=== PATIENT | male | born 1930 | race American Indian/Alaskan Native ===

== ENCOUNTER 2016-06-08 17:00 | Inpatient (IN) | payer MEDICARE, OTHER ==
[2016-05-29 00:20] VITALS: BMI 23.8
[2016-06-08] MEDS: Vitamins A & D Oint UD Foilpak TOP SCH (19:22)
[2016-06-08] MEDS: Nystatin 100,000 Units/ml Oral Susp 5 ml UD PO SCH ×2 (19:22→23:43)
[2016-06-08] MEDS: Albuterol-Ipratrop 3 mg / 0.5 (3 ml) UD INH SCH (20:13)
--- NOTE | 2016-06-08 23:43 | CP.PCM.HP ---
History of Present Illness - History of Present Illness History of Present Illness: 85 year old male with PMH significant for COPD, HTN, admitted from [facility] with TPN in left upper arm single lumen PICC line at 70ml/hr. Telemetry applied, RSR with HR of 78. No complaints at this time. nurse spoke to me on phone and medications were ordered via telephone. Past Patient History - Infectious Disease Hx of Infectious Diseases: None - Past Medical History & Family History Past Medical History?: Yes - Past Social History Smoking Status: Never Smoked - CARDIAC Hx Cardiac Disorders: Yes Hx Congestive Heart Failure: Yes Hx Hypercholesterolemia: Yes Hx Hypertension: Yes - PULMONARY Hx Respiratory Disorders: Yes - NEUROLOGICAL Hx Dementia: Yes - HEENT Hx HEENT Problems: No - RENAL Hx Chronic Kidney Disease: No - ENDOCRINE/METABOLIC Hx Endocrine Disorders: Yes Hx Diabetes Mellitus Type 2: Yes - HEMATOLOGICAL/ONCOLOGICAL Hx Human Immunodeficiency Virus (HIV): No Other/Comment: DVT - INTEGUMENTARY Hx Dermatological Problems: No - MUSCULOSKELETAL/RHEUMATOLOGICAL Hx Musculoskeletal Disorders: Yes (Right AKA) Hx Falls: Yes - GASTROINTESTINAL Hx Gastrointestinal Disorders: No - GENITOURINARY/GYNECOLOGICAL Hx Genitourinary Disorders: No - PSYCHIATRIC Hx Psychophysiologic Disorder: No Hx Substance Use: No - SURGICAL HISTORY Hx Surgeries: Yes Hx Amputation: Yes (RIGHT ABOVE THE KNEE) - ANESTHESIA Hx Anesthesia: Yes Hx Anesthesia Reactions: No Hx Malignant Hyperthermia: No Has any member of the family had a problem w/ anesthesia?: No Meds Allergies/Adverse Reactions: Allergies Allergy/AdvReac Type Severity Reaction Status Date / Time moxifloxacin HCl Allergy REDNESS Verified 05/28/16 18:17 [From Avelox] Penicillins Allergy RASH Verified 05/28/16 18:17 vancomycin AdvReac RASH Verified 05/28/16 18:17 Results - Vital Signs Recent Vital Signs: Last Vital Signs Temp 97.8 F 06/08/16 17:30 Pulse 77 06/08/16 20:17 Resp 20 06/08/16 17:30 BP 121/67 06/08/16 17:30 Pulse Ox 100 06/08/16 17:30 - Labs Labs: Laboratory Results - last 24 hr 06/08/16 21:35 POC Glucose (mg/dL) 147 H Assessment & Plan - Assessment and Plan (Free Text) Plan: detailed orders written continue TPN at 70ml/hr.
[2016-06-09] MEDS: Albuterol-Ipratrop 3 mg / 0.5 (3 ml) UD INH SCH ×4 (02:12→20:05)
[2016-06-09] MEDS: Nystatin 100,000 Units/ml Oral Susp 5 ml UD PO SCH ×4 (09:26→21:36)
[2016-06-09] MEDS: Enoxaparin 40 mg Syringe SC SCH (09:27)
[2016-06-09] MEDS: Vitamins A & D Oint UD Foilpak TOP SCH ×2 (09:27→21:36)
[2016-06-09 10:14] LABS: HEMATOCRIT 30.6 % (35.0-51.0); MEAN CELL VOLUME 91.4 fL (80.0-94.0); MEAN CORPUSCULAR HEMOGLOBIN 30.4 pg (27.0-31.0); MEAN CORPUSCULAR HGB CONC 33.3 g/dL (33.0-37.0); MEAN PLATELET VOLUME 8.7 fL (7.2-11.7); RED CELL DISTRIBUTION WIDTH 14.8 % (11.5-14.5); WHITE BLOOD COUNT 7.6 K/uL (4.8-10.8)
[2016-06-09 10:15] LABS: CHLORIDE 105 mmol/L (98-107); POTASSIUM 3.2 mmol/L (3.6-5.2); SODIUM 147 mmol/L (132-148)
[2016-06-09 10:16] LABS: INR 1.8
[2016-06-09 10:17] LABS: GFR AFRICAN-AMERICAN > 60
[2016-06-09 10:18] LABS: ALB/GLOB RATIO 0.7 (1.0-2.1); ALKALINE PHOSPHATASE 51 U/L (38-126); ALT/SGPT 38 U/L (21-72); AST/SGOT 19 U/L (17-59); BILIRUBIN,TOTAL 0.6 mg/dL (0.2-1.3); BLOOD UREA NITROGEN 16 mg/dL (9-20); CALCIUM 7.8 mg/dl (8.6-10.4); CARBON DIOXIDE 30 mmol/L (22-30); GLUCOSE,RANDOM 117 mg/dL (75-110); TOTAL PROTEIN 5.7 g/dL (6.3-8.3)
[2016-06-09] MEDS ORDERED: Potassium Chloride 20 mEq ER Tab PO ONE (13:15)
--- NOTE | 2016-06-09 17:13 | CARD ---
APPROVED REPORT EKG Measurement Heart [id number] <Conclusion> Sinus rhythm with premature supraventricular complexes Left ventricular hypertrophy with repolarization abnormality ST & T wave abnormality, consider anterior ischemia Abnormal ECG
--- NOTE | 2016-06-09 17:17 | CP.PCM.CON ---
History of Present Illness - History of Present Illness History of Present Illness: I was asked to see patient by Dr. Pimentel. Patient is an 85 year old male with PMH PVD s.p R BKA, HTN CAD, DM who presents form [facility]. The patient was being managed at [facility] for a stump infection. He was brought form the rehab floot with dyspnea and ruled in for myocardial infarction. The patient was treated with abx, and developed desquamation of the skin. He was transferred to [facility] for furhter management. I have spoken to the patient's daughter Mariaa who is the health care proxy. Review of Systems - Review of Systems Systems not reviewed;Unavailable: Altered Mental Status Past Patient History - Infectious Disease Hx of Infectious Diseases: None - Past Medical History & Family History Past Medical History?: Yes - Past Social History Smoking Status: Never Smoked - CARDIAC Hx Hypertension: Yes - PULMONARY Hx Chronic Obstructive Pulmonary Disease (COPD): Yes - NEUROLOGICAL Hx Dementia: Yes - HEENT Hx HEENT Problems: No - RENAL Hx Chronic Kidney Disease: No - ENDOCRINE/METABOLIC Hx Endocrine Disorders: Yes Hx Diabetes Mellitus Type 2: Yes - HEMATOLOGICAL/ONCOLOGICAL Hx Human Immunodeficiency Virus (HIV): No Other/Comment: DVT - INTEGUMENTARY Hx Dermatological Problems: No - MUSCULOSKELETAL/RHEUMATOLOGICAL Hx Musculoskeletal Disorders: Yes (Right AKA) Hx Falls: Yes - GASTROINTESTINAL Hx Gastrointestinal Disorders: No - GENITOURINARY/GYNECOLOGICAL Hx Genitourinary Disorders: No - PSYCHIATRIC Hx Psychophysiologic Disorder: No Hx Substance Use: No - SURGICAL HISTORY Hx Surgeries: Yes Hx Amputation: Yes (RIGHT ABOVE THE KNEE) - ANESTHESIA Hx Anesthesia: Yes Hx Anesthesia Reactions: No Hx Malignant Hyperthermia: No Has any member of the family had a problem w/ anesthesia?: No Meds Allergies/Adverse Reactions: Allergies Allergy/AdvReac Type Severity Reaction Status Date / Time moxifloxacin HCl Allergy REDNESS Verified 05/28/16 18:17 [From Avelox] Penicillins Allergy RASH Verified 05/28/16 18:17 vancomycin AdvReac RASH Verified 05/28/16 18:17 - Medications Medications: Current Medications Albuterol/Ipratropium (Duoneb 3 Mg/0.5 Mg (3 Ml) Ud) 3 ml INH RQ6 [facility] Last Admin: 06/09/16 13:22 Dose: 3 ml Aspirin (Ecotrin) 81 mg PO DAILY [facility] Last Admin: 06/09/16 09:26 Dose: 81 mg Carvedilol (Coreg) 3.125 mg PO Q12 [facility] Last Admin: 06/09/16 09:25 Dose: 3.125 mg Donepezil HCl (Aricept) 5 mg PO [facility] Last Admin: 06/08/16 22:29 Dose: 5 mg Enoxaparin Sodium (Lovenox) 40 mg SC DAILY [facility] Last Admin: 06/09/16 09:27 Dose: 40 mg Dextrose (Dextrose 10% In Water) 1,000 mls @ 50 mls/hr IV .Q20H [facility] Last Admin: 06/09/16 09:25 Dose: 50 mls/hr Heparin Sodium (Porcine) 1,000 units/ Multivitamins/Vitamin C 10 ml/ Amino Acids /Electrolytes/Dextrose 1,011 mls @ 70 mls/hr IV .[id number] ONE Stop: 06/10/16 08:26 Heparin Sodium (Porcine) 1,000 units/ Amino Acids/Electrolytes/Dextrose 1,001 mls @ 70 mls/hr IV .[id number] [facility] Stop: 06/10/16 17:59 Losartan Potassium (Cozaar) 25 mg PO DAILY [facility] Last Admin: 06/09/16 09:25 Dose: 25 mg Mirtazapine (Remeron) 15 mg PO [facility] Last Admin: 06/08/16 22:28 Dose: 15 mg Nystatin (Nystatin Oral Susp) 5 ml PO QID [facility] Last Admin: 06/09/16 13:26 Dose: 5 ml Ondansetron HCl (Zofran Inj) 4 mg IVP Q6 PRN PRN Reason: Nausea/Vomiting Rosuvastatin Calcium (Crestor) 10 mg PO [facility] Last Admin: 06/08/16 22:00 Dose: 10 mg Vitamin A (Vitamin A & D Oint Ud Foilpak) 1 ea TOP BID [facility] Last Admin: 06/09/16 09:27 Dose: 1 ea Physical Exam - Constitutional Appears: Chronically Ill - Head Exam Head Exam: NORMAL INSPECTION - Eye Exam Eye Exam: Normal appearance - ENT Exam ENT Exam: Mucous Membranes Moist - Neck Exam Neck exam: Positive for: Full Rom - Respiratory Exam Respiratory Exam: NORMAL BREATHING PATTERN - Cardiovascular Exam Cardiovascular Exam: REGULAR RHYTHM - GI/Abdominal Exam GI & Abdominal Exam: Normal Bowel Sounds - Rectal Exam Rectal Exam: Deferred - Extremities Exam Extremities exam: Negative for: pedal edema - Back Exam Back exam: NORMAL INSPECTION - Neurological Exam Neurological exam: Alert, Oriented x3 - Psychiatric Exam Psychiatric exam: Normal Affect - Skin Skin Exam: Normal Color Results - Vital Signs Recent Vital Signs: Last Vital Signs Temp 98 F 06/09/16 16:00 Pulse 80 06/09/16 16:06 Resp 20 06/09/16 16:00 BP 131/73 06/09/16 16:00 Pulse Ox 97 06/09/16 16:00 - Labs Result Diagrams: 06/09/16 10:02 06/09/16 10:02 Labs: Laboratory Results - last 24 hr 06/08/16 06/09/16 06/09/16 21:35 04:54 06:27 WBC RBC Hgb Hct MCV MCH MCHC RDW Plt Count MPV PT INR APTT Sodium Potassium Chloride Carbon Dioxide Anion Gap BUN Creatinine Est GFR ( Amer) Est GFR (Non-Af Amer) POC Glucose (mg/dL) 147 H 194 H 77 Random Glucose Calcium Total Bilirubin AST ALT Alkaline Phosphatase Total Creatine Kinase CK-MB (Mass) Troponin I, Quant Total Protein Albumin Globulin Albumin/Globulin Ratio 06/09/16 06/09/16 06/09/16 10:02 11:36 16:14 WBC 7.6 RBC 3.35 L Hgb 10.2 L D Hct 30.6 L MCV 91.4 MCH 30.4 MCHC 33.3 RDW 14.8 H Plt Count 198 MPV 8.7 PT 19.8 H INR 1.8 APTT 37 H Sodium 147 Potassium 3.2 L Chloride 105 Carbon Dioxide 30 Anion Gap 15 BUN 16 Creatinine 1.2 Est GFR ( Amer) > 60 Est GFR (Non-Af Amer) 58 POC Glucose (mg/dL) 156 H 102 Random Glucose 117 H Calcium 7.8 L Total Bilirubin 0.6 AST 19 ALT 38 Alkaline Phosphatase 51 Total Creatine Kinase 33 L CK-MB (Mass) 2.06 Troponin I, Quant 0.2350 H* Total Protein 5.7 L Albumin 2.3 L D Globulin 3.4 Albumin/Globulin Ratio 0.7 L - EKG Data EKG Interpreted by: Myself EKG shows normal: Sinus rhythm Assessment & Plan - Assessment and Plan (Free Text) Assessment: CAD patient had NSTEMI at [facility]. There is a high incidence of CAD with PAD. will schedule cardiac cath. consent obtained from the duaghter. all risks and benefits were discussed.
[2016-06-09] MEDS ORDERED: TPN#1 IV ONE (18:00)
--- NOTE | 2016-06-09 23:43 | CP.PCM.PN ---
Subjective - Date & Time of Evaluation Date of Evaluation: 06/09/16 - Subjective Subjective: Pt seen and evaluated, is afebrile, improving, more alert, atempting to gibe him diet, meantime he is on TPN, troponins are positive for Cardiac cath,pt is confused not able to give more information, pt son is on bedside Objective - Vital Signs/Intake and Output Vital Signs (last 24 hours): Temp Pulse Resp BP Pulse Ox 98 F 80 20 136/68 97 06/09/16 16:00 06/09/16 16:06 06/09/16 16:00 06/09/16 21:57 06/09/16 16:00 - Medications Medications: Current Medications Albuterol/Ipratropium (Duoneb 3 Mg/0.5 Mg (3 Ml) Ud) 3 ml INH RQ6 [facility] Last Admin: 06/09/16 20:05 Dose: 3 ml Aspirin (Ecotrin) 81 mg PO DAILY [facility] Last Admin: 06/09/16 09:26 Dose: 81 mg Carvedilol (Coreg) 3.125 mg PO Q12 [facility] Last Admin: 06/09/16 09:25 Dose: 3.125 mg Donepezil HCl (Aricept) 5 mg PO HS [facility] Last Admin: 06/09/16 21:35 Dose: 5 mg Enoxaparin Sodium (Lovenox) 40 mg SC DAILY [facility] Last Admin: 06/09/16 09:27 Dose: 40 mg Dextrose (Dextrose 10% In Water) 1,000 mls @ 50 mls/hr IV .Q20H [facility] Last Admin: 06/09/16 09:25 Dose: 50 mls/hr Heparin Sodium (Porcine) 1,000 units/ Multivitamins/Vitamin C 10 ml/ Amino Acids /Electrolytes/Dextrose 1,011 mls @ 70 mls/hr IV .[id number] ONE Stop: 06/10/16 08:26 Last Admin: 06/09/16 17:56 Dose: 70 mls/hr Heparin Sodium (Porcine) 1,000 units/ Amino Acids/Electrolytes/Dextrose 1,001 mls @ 70 mls/hr IV .[id number] [facility] Stop: 06/10/16 17:59 Losartan Potassium (Cozaar) 25 mg PO DAILY [facility] Last Admin: 06/09/16 09:25 Dose: 25 mg Mirtazapine (Remeron) 15 mg PO HS [facility] Last Admin: 06/08/16 22:28 Dose: 15 mg Nystatin (Nystatin Oral Susp) 5 ml PO QID [facility] Last Admin: 06/09/16 21:36 Dose: 5 ml Ondansetron HCl (Zofran Inj) 4 mg IVP Q6 PRN PRN Reason: Nausea/Vomiting Rosuvastatin Calcium (Crestor) 10 mg PO HS [facility] Last Admin: 06/09/16 21:35 Dose: 10 mg Vitamin A (Vitamin A & D Oint Ud Foilpak) 1 ea TOP BID [facility] Last Admin: 06/09/16 21:36 Dose: 1 ea - Labs Labs: 06/09/16 10:02 06/09/16 10:02 PT 19.8 SECONDS (9.7-12.2) H 06/09/16 10:02 INR 1.8 06/09/16 10:02 APTT 37 SECONDS (21-34) H 06/09/16 10:02 - Constitutional Appears: No Acute Distress, Confused, Chronically Ill - Head Exam Head Exam: ATRAUMATIC, NORMAL INSPECTION, NORMOCEPHALIC - ENT Exam ENT Exam: Mucous Membranes Moist, Normal Exam - Respiratory Exam Respiratory Exam: Decreased Breath Sounds, Rhonchi - Cardiovascular Exam Cardiovascular Exam: REGULAR RHYTHM, +S1, +S2. absent: Murmur - Skin Skin Exam: Dry Additional comments: ecthyosis genrally Assessment and Plan - Assessment and Plan (Free Text) Assessment: ACUTE OR HTN Hyperlipidemia Inability to thrive Plan: cardiac cath tommorow attempt feeding on TPN Physical therapy Rehab
[2016-06-10] MEDS: Albuterol-Ipratrop 3 mg / 0.5 (3 ml) UD INH SCH ×4 (01:30→19:56)
[2016-06-10 07:38] LABS: BASO % 0.5 % (0.0-2.0); EOS # 0.2 K/uL (0.0-0.7); EOS % 3.7 % (0.0-4.0); HEMATOCRIT 27.3 % (35.0-51.0); LYMPH # 1.1 K/uL (1.0-4.3); LYMPH % 17.3 % (20.0-40.0); MEAN CELL VOLUME 91.4 fL (80.0-94.0); MEAN CORPUSCULAR HEMOGLOBIN 30.9 pg (27.0-31.0); MEAN CORPUSCULAR HGB CONC 33.8 g/dL (33.0-37.0); MEAN PLATELET VOLUME 9.1 fL (7.2-11.7); MONO # 0.7 K/uL (0.0-0.8); MONO % 11.1 % (0.0-10.0); NRBC % 0.1 % (0.0-2.0); WHITE BLOOD COUNT 6.4 K/uL (4.8-10.8)
[2016-06-10 07:56] LABS: CHLORIDE 103 mmol/L (98-107); POTASSIUM 3.4 mmol/L (3.6-5.2); SODIUM 143 mmol/L (132-148)
[2016-06-10 07:58] LABS: BILIRUBIN,TOTAL 0.4 mg/dL (0.2-1.3); GFR AFRICAN-AMERICAN > 60
[2016-06-10 07:59] LABS: ALB/GLOB RATIO 0.7 (1.0-2.1); ALKALINE PHOSPHATASE 44 U/L (38-126); ALT/SGPT 26 U/L (21-72); AST/SGOT 24 U/L (17-59); BLOOD UREA NITROGEN 18 mg/dL (9-20); CALCIUM 7.1 mg/dl (8.6-10.4); CARBON DIOXIDE 27 mmol/L (22-30); GLUCOSE,RANDOM 130 mg/dL (75-110); TOTAL PROTEIN 5.2 g/dL (6.3-8.3)
[2016-06-10] MEDS ORDERED: Potassium Chloride 20 mEq 100 ML IVPB ONE (08:06)
[2016-06-10] MEDS ORDERED: TPN#2 IV SCH (08:27)
[2016-06-10] MEDS: Nystatin 100,000 Units/ml Oral Susp 5 ml UD PO SCH ×4 (09:42→22:15)
[2016-06-10] MEDS ORDERED: Iodixanol 320 mg/ml 150 ml Bottle IV ONE (11:57)
[2016-06-10] MEDS ORDERED: Midazolam 2 MG/2 ML VIAL ONE (11:58)
[2016-06-10 12:00] LABS: INR 1.5
--- NOTE | 2016-06-10 12:45 | CP.PCM.PN ---
Subjective - Date & Time of Evaluation Date of Evaluation: 06/10/16 Time of Evaluation: 12:30 - Subjective Subjective: cardiac cath performed. LAD ostium 90% OM1 90% mid vessel LVEF 45%. Due to multiple comorbidities ( patient is currently not eating, and receiving TPN). patient is at high risk for PCI given ostial LAD, recommend agressive medical therapy. Objective - Vital Signs/Intake and Output Vital Signs (last 24 hours): Temp Pulse Resp BP Pulse Ox 98.2 F 79 20 120/63 100 06/10/16 07:07 06/10/16 08:48 06/10/16 07:07 06/10/16 07:07 06/10/16 07:07 - Medications Medications: Current Medications Albuterol/Ipratropium (Duoneb 3 Mg/0.5 Mg (3 Ml) Ud) 3 ml INH RQ6 [facility] Last Admin: 06/10/16 07:29 Dose: 3 ml Aspirin (Ecotrin) 81 mg PO DAILY [facility] Last Admin: 06/09/16 09:26 Dose: 81 mg Carvedilol (Coreg) 3.125 mg PO Q12 [facility] Last Admin: 06/09/16 09:25 Dose: 3.125 mg Donepezil HCl (Aricept) 5 mg PO HS [facility] Last Admin: 06/09/16 21:35 Dose: 5 mg Enoxaparin Sodium (Lovenox) 40 mg SC DAILY [facility] Last Admin: 06/09/16 09:27 Dose: 40 mg Dextrose (Dextrose 10% In Water) 1,000 mls @ 50 mls/hr IV .Q20H [facility] Last Admin: 06/09/16 09:25 Dose: 50 mls/hr Heparin Sodium (Porcine) 1,000 units/ Amino Acids/Electrolytes/Dextrose 1,001 mls @ 70 mls/hr IV .[id number] [facility] Stop: 06/10/16 17:59 Last Admin: 06/10/16 10:27 Dose: 70 mls/hr Losartan Potassium (Cozaar) 25 mg PO DAILY [facility] Last Admin: 06/09/16 09:25 Dose: 25 mg Mirtazapine (Remeron) 15 mg PO HS [facility] Last Admin: 06/08/16 22:28 Dose: 15 mg Nystatin (Nystatin Oral Susp) 5 ml PO QID [facility] Last Admin: 06/10/16 09:42 Dose: Not Given Ondansetron HCl (Zofran Inj) 4 mg IVP Q6 PRN PRN Reason: Nausea/Vomiting Rosuvastatin Calcium (Crestor) 10 mg PO HS [facility] Last Admin: 06/09/16 21:35 Dose: 10 mg Vitamin A (Vitamin A & D Oint Ud Foilpak) 1 ea TOP BID [facility] Last Admin: 06/09/16 21:36 Dose: 1 ea - Labs Labs: 06/10/16 07:09 06/10/16 07:09 PT 16.4 SECONDS (9.7-12.2) H 06/10/16 11:44 INR 1.5 06/10/16 11:44 APTT 39 SECONDS (21-34) H 06/10/16 11:44
[2016-06-10] MEDS ORDERED: TPN #4 IV ONE (13:15)
[2016-06-10] MEDS: Enoxaparin 40 mg Syringe SC SCH (13:19)
[2016-06-10] MEDS: Vitamins A & D Oint UD Foilpak TOP SCH ×2 (13:19→17:38)
--- NOTE | 2016-06-10 13:19 | CARDCATH ---
PROCEDURE DATE: 06/10/2016 PERFORMING PHYSICIAN: Juan Carlos Todd MD. REFERRING PHYSICIAN: Faustino Pimentel MD. PROCEDURE PERFORMED: Left heart catheterization, coronary angiography, left ventriculography. INDICATIONS: Evaluation of patient with a non-ST segment elevation myocardial infarction. HISTORY: The patient is an 85-year-old male with past medical history of hypertension, hypercholeste rolemia and peripheral vascular disease with a right below knee amputation. He had just a stump of i nfection. The patient developed dyspnea and ruled in for myocardial infarction by cardiac troponin. The patient was brought to the cardiac label paster for further management. Informed consent was obtain ed from the patient's daughter who is the healthcare proxy. All risks and benefits were thoroughly e xplained. FINDINGS: LEFT MAIN: There is a 30% distal stenosis. LEFT ANTERIOR DESCENDING ARTERY: There is a 90% stenosis of the ostium of this vessel. The second d iagonal branch has 90% stenosis, this is a small caliber vessel. CIRCUMFLEX: The first obtuse marginal artery has a 90% stenosis. RIGHT CORONARY ARTERY: Arises from the right sinus of Valsalva. This is a right dominant circulatio n. There is a 30% stenosis of the mid vessel. LEFT VENTRICLE: Left ventricular systolic function is globally depressed. Left ventricular ejection fraction is 40%-45%. There is no mitral regurgitation, no aortic stenosis. CONCLUSIONS: Severe 2-vessel coronary artery disease. PLAN: The patient has multiple comorbidities. He currently on TPN and is not swallowing. He is not able to take antiplatelet therapy at this time. There is a consideration for placement of a G-tube for feeding and administration oral medications. The patient is at high risk for complications for c oronary bypass grafting and as well given the location of disease and the inability to ingest antipla telet therapy, he would be at high risk for percutaneous coronary intervention. I recommend aggressi ve medical therapy with the use of beta blockers as tolerated. I have discussed my findings with the patient's primary medical doctor, Dr. Faustino Pimentel, who agrees. Juan Carlos Todd MD cc: [phone] TT: 06/10/2016 13:18:35 jn
[2016-06-10] MEDS ORDERED: TPN #3 IV ONE (18:00)
[2016-06-11] MEDS: Albuterol-Ipratrop 3 mg / 0.5 (3 ml) UD INH SCH ×3 (01:10→13:20)
[2016-06-11 06:23] LABS: CHLORIDE 103 mmol/L (98-107)
[2016-06-11 06:24] LABS: POTASSIUM 3.8 mmol/L (3.6-5.2); SODIUM 139 mmol/L (132-148)
[2016-06-11 06:26] LABS: GFR AFRICAN-AMERICAN > 60
[2016-06-11 06:27] LABS: BLOOD UREA NITROGEN 20 mg/dL (9-20); CALCIUM 7.3 mg/dl (8.6-10.4); CARBON DIOXIDE 27 mmol/L (22-30); GLUCOSE,RANDOM 124 mg/dL (75-110)
[2016-06-11 08:20] VITALS: O2SAT 100
[2016-06-11] MEDS ORDERED: TPN #4 IV ONE (08:25)
[2016-06-11] MEDS: Vitamins A & D Oint UD Foilpak TOP SCH (10:25)
[2016-06-11] MEDS: Enoxaparin 40 mg Syringe SC SCH (10:25)
[2016-06-11] MEDS: Nystatin 100,000 Units/ml Oral Susp 5 ml UD PO SCH ×2 (10:25→13:38)
--- NOTE | 2016-06-11 12:36 | CP.PCM.PN ---
Subjective - Date & Time of Evaluation Date of Evaluation: 06/11/16 Time of Evaluation: 12:00 - Subjective Subjective: Pt seen and examined today , comfortable, denies any chest pain, sob , head ache , N/V, c/o pain to the left knee s/p Cardiac cath yesterday - LAD ostium 90% OM1 90% mid vessel LVEF 45%.- medical management recommended secondary to multiple co morbidities No overnight events recorded on monitor . Objective - Vital Signs/Intake and Output Vital Signs (last 24 hours): Temp Pulse Resp BP Pulse Ox 98.4 F 97 H 18 131/68 100 06/11/16 07:12 06/11/16 08:11 06/11/16 07:12 06/11/16 07:12 06/11/16 07:12 Intake and Output: 06/11/16 06/11/16 06:59 18:59 Output Total 200 Balance -200 - Medications Medications: Current Medications Albuterol/Ipratropium (Duoneb 3 Mg/0.5 Mg (3 Ml) Ud) 3 ml INH RQ6 [facility] Last Admin: 06/11/16 07:40 Dose: 3 ml Aspirin (Ecotrin) 81 mg PO DAILY [facility] Last Admin: 06/11/16 10:25 Dose: 81 mg Carvedilol (Coreg) 3.125 mg PO Q12 [facility] Last Admin: 06/11/16 10:24 Dose: 3.125 mg Donepezil HCl (Aricept) 5 mg PO HS [facility] Last Admin: 06/10/16 21:28 Dose: 5 mg Enoxaparin Sodium (Lovenox) 40 mg SC DAILY [facility] Last Admin: 06/11/16 10:25 Dose: 40 mg Heparin Sodium (Porcine) 1,000 units/ Amino Acids/Electrolytes/Dextrose 1, 000.2 mls @ 70 mls/hr IV .[id number] [facility] Stop: 06/11/16 22:42 Last Admin: 06/11/16 11:31 Dose: 70 mls/hr Multivitamins/Vitamin C 10 ml/Heparin Sodium (Porcine) 1, 000 units/ Amino Acids /Electrolytes/Dextrose 1,011 mls @ 70 mls/hr IV .[id number] [facility] Stop: 06/12/16 08:26 Heparin Sodium (Porcine) 1,000 units/ Amino Acids/Electrolytes/Dextrose 1,001 mls @ 70 mls/hr IV .[id number] [facility] Stop: 06/12/16 22:42 Losartan Potassium (Cozaar) 25 mg PO DAILY [facility] Last Admin: 06/11/16 10:25 Dose: 25 mg Mirtazapine (Remeron) 15 mg PO HS [facility] Last Admin: 06/10/16 21:28 Dose: 15 mg Nystatin (Nystatin Oral Susp) 5 ml PO QID [facility] Last Admin: 06/11/16 10:25 Dose: 5 ml Ondansetron HCl (Zofran Inj) 4 mg IVP Q6 PRN PRN Reason: Nausea/Vomiting Rosuvastatin Calcium (Crestor) 10 mg PO HS [facility] Last Admin: 06/10/16 21:38 Dose: 10 mg Vitamin A (Vitamin A & D Oint Ud Foilpak) 1 ea TOP BID [facility] Last Admin: 06/11/16 10:25 Dose: 1 ea - Labs Labs: 06/10/16 07:09 06/11/16 06:02 PT 16.4 SECONDS (9.7-12.2) H 06/10/16 11:44 INR 1.5 06/10/16 11:44 APTT 39 SECONDS (21-34) H 06/10/16 11:44 Assessment and Plan - Assessment and Plan (Free Text) Assessment: A/P 85 yr old male transferred from [place] for positive troponins and chest pain s/p cardiac cath yesterday by Dr. Pavon and recommends aggressive medical therapy secondary to multiple comorbiditeis vss- stable appetite still poor- pt on TPN for nutritional support Pt accepted at [facility] for rehab D/w Dr. Pimentel, stable for discharge to [facility] today an [place]. Loren will follow the patient at [facility] per CM Pt will continue to receive TPN at [facility] , RX for TPN given to pradeep johnson
--- NOTE | 2016-06-11 15:17 | PCM.HF ---
Heart Failure Core Measure - Heart Failure Ejection Fraction: 40 % or Greater ALBERT Inhibitor Prescribed: No Contraindication/Reason for not providing: on ALBERT Beta-Denita Prescribed: Carvedilol Angiotensin II Receptor Denita Prescribed: No AnticoagulationTherapy for Atrial Fibrillation/Atrialflutter: Yes Aldosterone Antagonist Prescribed: No Contraindication/Reason for not providing: ef>45 Hydralazine Nitrate Prescribed: No Contraindication/Reason for not providing: ef>45 Implantable Cardioverter Defibrillator Therapy: No Contraindication/Reason for not providing: recent cath Cardiac Resynchronization Therapy Prescribed: No Contraindication/Reason for not providing: recent cath - Follow up [facility] Follow Up Date (must be within 7 days from discharge): 06/13/16 Follow Up Time: 09:00
[2016-06-11 15:24] VITALS: BP 106/62; PULSE 102; RESP 20; TEMP 98.6
[2016-06-11] MEDS ORDERED: TPN #5 IV ONE (18:00)
--- NOTE | 2016-06-12 00:13 | CP.PCM.DIS ---
Provider - Provider Date of Admission: 06/08/16 17:00 Attending physician: Faustino Pimentel MD Hospital Course - Lab Results Lab Results: Most Recent Lab Values WBC 6.4 K/uL (4.8-10.8) 06/10/16 07:09 RBC 2.99 Mil/uL (4.40-5.90) L 06/10/16 07:09 Hgb 9.3 g/dL (12.0-18.0) L 06/10/16 07:09 Hct 27.3 % (35.0-51.0) L 06/10/16 07:09 MCV 91.4 fL (80.0-94.0) 06/10/16 07:09 MCH 30.9 pg (27.0-31.0) 06/10/16 07:09 MCHC 33.8 g/dL (33.0-37.0) 06/10/16 07:09 RDW 15.0 % (11.5-14.5) H 06/10/16 07:09 Plt Count 186 K/uL (130-400) 06/10/16 07:09 MPV 9.1 fL (7.2-11.7) 06/10/16 07:09 Neut % (Auto) 67.4 % (50.0-75.0) 06/10/16 07:09 Lymph % (Auto) 17.3 % (20.0-40.0) L 06/10/16 07:09 Lucas % (Auto) 11.1 % (0.0-10.0) H 06/10/16 07:09 Eos % (Auto) 3.7 % (0.0-4.0) 06/10/16 07:09 Baso % (Auto) 0.5 % (0.0-2.0) 06/10/16 07:09 Neut # 4.3 K/uL (1.8-7.0) 06/10/16 07:09 Lymph # 1.1 K/uL (1.0-4.3) 06/10/16 07:09 Lucas # 0.7 K/uL (0.0-0.8) 06/10/16 07:09 Eos # 0.2 K/uL (0.0-0.7) 06/10/16 07:09 Baso # 0.0 K/uL (0.0-0.2) 06/10/16 07:09 PT 16.4 SECONDS (9.7-12.2) H 06/10/16 11:44 INR 1.5 06/10/16 11:44 APTT 39 SECONDS (21-34) H 06/10/16 11:44 Sodium 139 mmol/L (132-148) 06/11/16 06:02 Potassium 3.8 mmol/L (3.6-5.2) 06/11/16 06:02 Chloride 103 mmol/L (98-107) 06/11/16 06:02 Carbon Dioxide 27 mmol/L (22-30) 06/11/16 06:02 Anion Gap 14 (10-20) 06/11/16 06:02 BUN 20 mg/dL (9-20) 06/11/16 06:02 Creatinine 1.2 MG/DL (0.8-1.5) 06/11/16 06:02 Est GFR ( Amer) > 60 06/11/16 06:02 Est GFR (Non-Af Amer) 58 06/11/16 06:02 POC Glucose (mg/dL) 107 mg/dL (65-110) 06/11/16 16:13 Random Glucose 124 mg/dL (75-110) H 06/11/16 06:02 Calcium 7.3 mg/dl (8.6-10.4) L 06/11/16 06:02 Total Bilirubin 0.4 mg/dL (0.2-1.3) 06/10/16 07:09 AST 24 U/L (17-59) 06/10/16 07:09 ALT 26 U/L (21-72) 06/10/16 07:09 Alkaline Phosphatase 44 U/L (38-126) 06/10/16 07:09 Total Creatine Kinase 33 U/L (55-170) L 06/09/16 10:02 CK-MB (Mass) 2.06 ng/mL (0.0-3.38) 06/09/16 10:02 Troponin I, Quant 0.2350 ng/mL (0.00-0.120) H* 06/09/16 10:02 Total Protein 5.2 g/dL (6.3-8.3) L 06/10/16 07:09 Albumin 2.2 g/dL (3.5-5.0) L 06/10/16 07:09 Globulin 3.0 gm/dL (2.2-3.9) 06/10/16 07:09 Albumin/Globulin Ratio 0.7 (1.0-2.1) L 06/10/16 07:09 - Hospital Course Hospital Course: Pt seen and examined today , comfortable, denies any chest pain, sob , head ache , N/V, c/o pain to the left knee s/p Cardiac cath yesterday - LAD ostium 90% OM1 90% mid vessel LVEF 45%.- medical management recommended secondary to multiple co morbidities No overnight events recorded on monitor . for discharge, and medical management for CAD, some oral intake , on TPN Discharge Exam - Head Exam Head Exam: ATRAUMATIC, NORMAL INSPECTION, NORMOCEPHALIC - Eye Exam Eye Exam: EOMI, Normal appearance, PERRL Pupil Exam: NORMAL ACCOMODATION, PERRL - Cardiovascular Exam Cardiovascular Exam: REGULAR RHYTHM - GI/Abdominal Exam GI & Abdominal Exam: Normal Bowel Sounds Discharge Plan - Follow Up Plan Condition: GOOD Disposition: REHAB FACILITY/REHAB UNIT Instructions: Myocardial Infarction (DC), Heart Failure (DC), Coronary Artery Disease (DC), Heart Catheterization (DC) Additional Instructions: Please admit patient to Dr. Pimentel service- call Dr. Pimentel upon patient arrival to the facility continue medication as per Med. rec. Continue TPN as ordered CBC and CMP QOD while on TPN Calorie count x 3 days - starting next tuesday Referrals: Faustino Pimentel MD [Family Provider] -
[2016-06-12] MEDS ORDERED: TPN #6 IV ONE (08:25)
== END 2016-06-11 17:20 | DRG 282 ==
LOC: C.6T 17:00
PROVIDERS: ADMIT Internal Medicine; ATTEND Internal Medicine
PROC: 4A023N7 Measurement of Cardiac Sampling and Pressure, Left Heart, Percutaneous Approach (ICD-10-PCS; principal; 2016-06-10)
PROC: B2111ZZ Fluoroscopy of Multiple Coronary Arteries using Low Osmolar Contrast (ICD-10-PCS; 2016-06-10)
PROC: B2151ZZ Fluoroscopy of Left Heart using Low Osmolar Contrast (ICD-10-PCS; 2016-06-10)
DX: I21.4 Non-ST elevation (NSTEMI) myocardial infarction (principal); E11.51 Type 2 diabetes mellitus with diabetic peripheral angiopathy without gangrene; I11.0 Hypertensive heart disease with heart failure; I50.9 Heart failure, unspecified; J44.9 Chronic obstructive pulmonary disease, unspecified; E78.5 Hyperlipidemia, unspecified; I25.10 Atherosclerotic heart disease of native coronary artery without angina pectoris; Z89.511 Acquired absence of right leg below knee; R62.7 Adult failure to thrive

== ENCOUNTER 2016-09-16 20:16 | Inpatient (IN) | payer MEDICARE, OTHER ==
[2016-09-16 20:17] VITALS: BMI 23.8
--- NOTE | 2016-09-16 20:35 | C.PDOC ---
History Of Present Illness 86 y/o male brought in from shelter for tachycardia and reported low blood pressure. States he does not feel well. Unable to obtain further history from patient due to clinical condition. Time Seen by Provider: 09/16/16 20:34 Chief Complaint (Nursing): Palpitations History Per: Patient History/Exam Limitations: clinical condition Current Symptoms Are (Timing): Still Present Quality Of Symptoms: Rapid Heart Rate Recent travel outside of the [place]: No Past Medical History Reviewed: Historical Data, Nursing Documentation, Vital Signs Vital Signs: Last Vital Signs Temp 99.9 F H 09/16/16 20:30 Pulse 130 H 09/16/16 20:30 Resp 21 09/16/16 20:30 BP 127/78 09/16/16 20:30 Pulse Ox 100 09/16/16 20:30 - Medical History PMH: CAD, CHF, COPD, Dementia, Deep Vein Thrombosis, HTN, Hypercholesterolemia, Pancreatitis - [facility] Procedures CENTRAL VENOUS CATHETER PLACEMENT WITH GUIDANCE (03/30/13) EXTRACTION OF LEFT FOOT SKIN, EXTERNAL APPROACH (08/25/16) FLUOROSCOPY OF LEFT HEART USING LOW OSMOLAR CONTRAST (06/08/16) FLUOROSCOPY OF MULT COR ART USING L OSM CONTRAST (06/08/16) HOME MANAGEMENT TREATMENT (08/21/15) INFLUENZA VACCINATION (06/08/13) INSERT INFUSION DEV IN R INT JUGULAR VEIN, PERC (05/18/16) INSERTION OF INFUSION DEV INTO SUP VENA CAVA, PERC APPROACH (05/29/16) INTRODUCE OF OTH THERAP SUBST INTO RESP TRACT, VIA OPENING (05/28/16) INTRODUCTION OF SERUM/TOX/VACCINE INTO MUSCLE, PERC APPROACH (08/15/15) LEFT HEART CARDIAC CATH (03/30/13) LOCAL EXCIS BREAST LES (03/30/13) LT HEART ANGIOCARDIOGRAM (03/30/13) MEASURE OF CARDIAC SAMPL & PRESSURE, L HEART, PERC APPROACH (06/08/16) ROM & JT MOBILITY TREATMENT OF MUSCULOSK LOW BACK/LE (08/21/15) ROM & JT MOBILITY TREATMENT OF MUSCULOSK UP BACK/UE (08/21/15) VACCINATION NEC (04/04/14) VENOUS CATHETERIZATION NEC (11/22/14) Family History: States: Unknown Family Hx - Social History Hx Tobacco Use: Yes Hx Alcohol Use: No Hx Substance Use: No - Immunization History Hx Tetanus Toxoid Vaccination: No Hx Influenza Vaccination: No Hx Pneumococcal Vaccination: No Review Of Systems Review Of Systems: ROS cannot be obtained secondary to pt's inabilty to answer questions. Physical Exam - Physical Exam Appears: Non-toxic Skin: Warm, Dry, Pale Head: Atraumatic Eye(s): bilateral: Normal Inspection Oral Mucosa: Dry Teeth: Other (poor dentition) Neck: Supple Chest: Symmetrical Cardiovascular: Rhythm Irregular (irregularly) Respiratory: No Rales, Rhonchi (scattered), No Wheezing Gastrointestinal/Abdominal: Soft, No Tenderness, Distention, Other (mildly tympanic to percussion) Male Genital: No Testicular Tenderness Extremity: Normal ROM (bilateral upper extremities and left lower extremity), Capillary Refill (< 2 sec.), Other (Right AKA) Extremity: Left: Normal Color And Temperature Neurological/Psych: Slow To Respond With Command, Other (aaox2 ) Gait: Unable To Assess ED Course And Treatment - Laboratory Results Result Diagrams: 09/16/16 21:38 09/16/16 23:20 ECG: Interpreted By Me, Viewed By Me ECG Rhythm: Atrial Fibrillation (128), Nonspecific Changes Pulse Ox Interpretation: Normal - Radiology CXR: Interpreted by Me, Viewed By Me Progress Note: VBG, EKG, CxR, bloodwork ordered. spoke with dr king - icu- at bedside with the pt for icu admit Critical Care Time - Critical Care Note Total Time (in mins): 30 Documented critical care: time excludes all time spent performing seperately billable procedures. Disposition Discussed With : Faustino Pimentel Comment: accepted the pt onhis service and took over the care at 11:50 PM Doctor Will See Patient In The: Hospital Counseled Patient/Family Regarding: Studies Performed, Diagnosis - Disposition Disposition: HOSPITALIZED Disposition Time: 20:20 Condition: FAIR - Clinical Impression Clinical Impression: Palpitations, Atrial arrhythmia, NSTEMI (non-ST elevated myocardial infarction) - Scribe Statement The provider has reviewed the documentation as recorded by the Scribnato Petty All medical record entries made by the Scribe were at my direction and personally dictated by me. I have reviewed the chart and agree that the record accurately reflects my personal performance of the history, physical exam, medical decision making, and the department course for this patient. I have also personally directed, reviewed, and agree with the discharge instructions and disposition. Decision To Admit - Pt Status Changed To: Hospital Disposition Of: Inpatient - Admit Certification Admit to Inpatient:: After my assessment, the patient will require hospitalization for at least two midnights. This is because of the severity of symptoms shown, intensity of services needed, and/or the medical risk in this patient being treated as an outpatient. - InPatient: Physician Admission Certification: I certify that this patient requires 2 or more midnights of care for the following reason:: After my assessment, the patient will require hospitalization for at least two midnights. This is because of the severity of symptoms shown, intensity of services needed, and/or the medical risk in this patient being treated as an outpatient. - . Bed Request Type: ICU Admitting Physician: Faustino Pimentel Patient Diagnosis: Palpitations, Atrial arrhythmia, NSTEMI (non-ST elevated myocardial infarction)
[2016-09-16 21:45] LABS: BASO # 0.1 K/uL (0.0-0.2); BASO % 0.7 % (0.0-2.0); EOS # 0.3 K/uL (0.0-0.7); EOS % 4.3 % (0.0-4.0); HEMOGLOBIN 12.8 g/dL (12.0-18.0); LYMPH # 2.7 K/uL (1.0-4.3); LYMPH % 37.3 % (20.0-40.0); MEAN CELL VOLUME 91.5 fL (80.0-94.0); MEAN CORPUSCULAR HEMOGLOBIN 29.4 pg (27.0-31.0); MEAN CORPUSCULAR HGB CONC 32.2 g/dL (33.0-37.0); MONO # 0.6 K/uL (0.0-0.8); MONO % 8.3 % (0.0-10.0); NEUT # 3.6 K/uL (1.8-7.0); NEUT % 49.4 % (50.0-75.0); NRBC % 0.1 % (0.0-2.0); RBC 4.35 Mil/uL (4.40-5.90); RED CELL DISTRIBUTION WIDTH 17.7 % (11.5-14.5); WHITE BLOOD COUNT 7.4 K/uL (4.8-10.8)
[2016-09-16 21:53] LABS: INR 2.3; PROTHROMBIN TIME 26.7 SECONDS (9.7-12.2)
[2016-09-16 21:55] LABS: VENOUS BLOOD GAS PCO2 43 mmHg (40-60); VENOUS BLOOD PH 7.27 (7.32-7.43)
[2016-09-16 23:32] LABS: ALBUMIN 2.9 g/dL (3.5-5.0)
[2016-09-16 23:35] LABS: ALB/GLOB RATIO 0.8 (1.0-2.1)
[2016-09-16 23:49] LABS: TROPONIN I 8.08 ng/mL (0.00-0.120)
[2016-09-17] MEDS ORDERED: Enoxaparin 40 mg Syringe SC STA
[2016-09-17 00:20] LABS: SQUAMOUS EPITHIAL 3 /hpf (0-5); URINE BILIRUBIN NEGATIVE (NEGATIVE); URINE BLOOD NEGATIVE (NEGATIVE); URINE CLARITY Clear (Clear); URINE COLOR Yellow (YELLOW); URINE GLUCOSE (UA) NORMAL (Normal); URINE LEUKOCYTE ESTERASE NEG Leu/uL (Negative); URINE NITRATE NEGATIVE (NEGATIVE); URINE PROTEIN NEGATIVE (NEGATIVE); URINE UROBILINOGEN NORMAL mg/dL (0.2-1.0)
--- NOTE | 2016-09-17 00:33 | CP.CCUPN ---
CCU Subjective - Physician Review Subjective (Free Text): 09/17/16 02:33 The Patient was seen and examined at the bedside, Medical records reviewed, all clinical/lab/hemodynamic/radiographic data were reviewed and management issues were discussed and formulated, Mr. Zepeda is 86 Y/O M with PMHx of HTN, Hypercholesterolemia, CAD, CHF, COPD, Dementia, Deep Vein Thrombosis and Pancreatitis Who brought in from [facility] for tachycardia and reported low blood pressure. States he does not feel well but denies CP/SOB/Palpitaions. In the emergency department, he was in A Fib/Flutter with RVR, he was started on cardiazem drip Also Labs significant for worsening or renal function with hyperkalemia, elevated Trop of 8.08 and BNP INR 2.3 Patient received 100 mg Lovenox, 40 mg IV Lasix and ASA Admitted to the ICU for Atrial arrhythmia, NSTEMI (non-ST elevated myocardial infarction) Cardiology consult called, Pt was started on cardiazem drip 09/19/16 22:17 CCU Objective - Physical Exam Head: Positive for: Atraumatic, Normocephalic Pupils: Positive for: PERRL Extroacular Muscles: Positive for: EOMI Conjunctiva: Positive for: Normal. Negative for: Injected, Icteric Mouth: Positive for: Moist Mucous Membranes Nose (Internal): Positive for: Normal Inspection Neck: Positive for: Normal Range of Motion, Trachea Midline. Negative for: Meningeal Signs, MIDLINE TENDERNESS, Paraspinal Tenderness, JVD, Lymphadenopathy , Bruit, Other Respiratory/Chest: Positive for: Clear to Auscultation, Good Air Exchange, Rales. Negative for: Respiratory Distress, Accessory Muscle Use, Wheezes, Retracting Cardiovascular: Positive for: Irregular Rhythm, Peripheal Pulses Present, Tachycardic Abdomen: Positive for: Normal Bowel Sounds. Negative for: Tenderness, Distention Psychiatric: Positive for: Alert, Oriented x 3 - Patient Studies Lab Studies: Lab Studies 09/17/16 Range/Units 00:05 Urine Color Yellow (YELLOW) Urine Clarity Clear (Clear) Urine pH 5.0 (5.0-8.0) Ur Specific [place] 1.019 (1.003-1.030) Urine Protein Negative (NEGATIVE) mg/dL Urine Glucose (UA) Normal (Normal) mg/dL Urine Ketones Negative (NEGATIVE) mg/dL Urine Blood Negative (NEGATIVE) Urine Nitrate Negative (NEGATIVE) Urine Bilirubin Negative (NEGATIVE) Urine Urobilinogen Normal (0.2-1.0) mg/dL Ur Leukocyte Esterase Neg (Negative) Rajan/uL Urine WBC (Auto) 1 (0-5) /hpf Urine RBC (Auto) < 1 (0-3) /hpf Ur Squamous Epith Cells 3 (0-5) /hpf Laboratory Results - last 24 hr 09/17/16 00:05 Urine Color Yellow Urine Clarity Clear Urine pH 5.0 Ur Specific [place] 1.019 Urine Protein Negative Urine Glucose (UA) Normal Urine Ketones Negative Urine Blood Negative Urine Nitrate Negative Urine Bilirubin Negative Urine Urobilinogen Normal Ur Leukocyte Esterase Neg Urine WBC (Auto) 1 Urine RBC (Auto) < 1 Ur Squamous Epith Cells 3 Assessment/Plan (1) Atrial arrhythmia Current Visit: Yes Status: Acute (2) NSTEMI (non-ST elevated myocardial infarction) Current Visit: Yes Status: Acute Comment: continue medical management Continue anticoagulation 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
[2016-09-17 06:29] LABS: BASO # 0.1 K/uL (0.0-0.2); BASO % 0.9 % (0.0-2.0); EOS # 0.3 K/uL (0.0-0.7); EOS % 4.3 % (0.0-4.0); LYMPH # 2.5 K/uL (1.0-4.3); LYMPH % 37.2 % (20.0-40.0); MEAN CELL VOLUME 90.9 fL (80.0-94.0); MEAN CORPUSCULAR HEMOGLOBIN 29.6 pg (27.0-31.0); MEAN CORPUSCULAR HGB CONC 32.6 g/dL (33.0-37.0); MEAN PLATELET VOLUME 7.8 fL (7.2-11.7); MONO # 0.7 K/uL (0.0-0.8); NEUT # 3.3 K/uL (1.8-7.0); NEUT % 47.6 % (50.0-75.0); NRBC % 0.1 % (0.0-2.0); RBC 3.46 Mil/uL (4.40-5.90); RED CELL DISTRIBUTION WIDTH 17.6 % (11.5-14.5); WHITE BLOOD COUNT 6.8 K/uL (4.8-10.8)
[2016-09-17 06:36] LABS: HEMOGLOBIN 10.2 g/dL (12.0-18.0)
[2016-09-17 06:44] LABS: ALBUMIN 1.9 g/dL (3.5-5.0)
[2016-09-17 06:47] LABS: ALB/GLOB RATIO 0.8 (1.0-2.1); AST/SGOT 46 U/L (17-59); BLOOD UREA NITROGEN 23 mg/dL (9-20); GFR AFRICAN-AMERICAN > 60; GFR NON-AFRICAN AMERICAN > 60
[2016-09-17 06:48] LABS: ALT/SGPT 18 U/L (21-72); MAGNESIUM 1.2 mg/dL (1.6-2.3)
[2016-09-17 06:52] LABS: CK-MB 19.9 ng/mL (0.0-3.38)
[2016-09-17 06:53] LABS: CALCIUM 5.8 mg/dl (8.6-10.4)
--- NOTE | 2016-09-17 07:38 | RAD ---
PROCEDURE: CHEST RADIOGRAPH, 1 VIEW HISTORY: chest pain COMPARISON: 11/22/2014 FINDINGS: LUNGS: Mild venous congestion. Diffuse confluent increased interstitial lung markings. Biapical pleural thickening. Right hilar prominence. Nodular density at the right lung base. Blunted bilateral costophrenic angles; left greater than right which may represent trace effusions. Bilateral paratracheal prominence may represent prominent vasculature. PLEURA: As above. CARDIOVASCULAR: Cardiomegaly. OSSEOUS STRUCTURES: Degenerative changes in the spine and shoulders. VISUALIZED UPPER ABDOMEN: Normal. OTHER FINDINGS: None. IMPRESSION: Mild venous congestion. Diffuse confluent increased interstitial lung markings. Biapical pleural thickening. Right hilar prominence. Nodular density at the right lung base. Blunted bilateral costophrenic angles; left greater than right which may represent trace effusions. Bilateral paratracheal prominence may represent prominent vasculature.
--- NOTE | 2016-09-17 08:50 | CP.PCM.CON ---
History of Present Illness - History of Present Illness History of Present Illness: Patient seen examined. Full consult to follow. Patient is a 86 year old male with severe 2 vessel CAD who presents with afib with RVR, NSTEMI. Patient was admitted to ICU for furterh management. Plan:anticoagulation. antiplatelet therapy. Previously was not scheduled for high risk CABG or PCI due to multiple comorbidities and high risk of . will need to treat medically at this time. Discussion with family regarding current condition. Past Patient History - Infectious Disease Hx of Infectious Diseases: None - Past Medical History & Family History Past Medical History?: Yes - Past Social History Smoking Status: Former Smoker - CARDIAC Hx Cardiac Disorders: Yes Hx Atrial Fibrillation: Yes Hx Congestive Heart Failure: Yes Hx Hypercholesterolemia: Yes Hx Hypertension: Yes - PULMONARY Hx Respiratory Disorders: Yes Hx Chronic Obstructive Pulmonary Disease (COPD): Yes - NEUROLOGICAL Hx Neurological Disorder: Yes Hx Dementia: Yes - HEENT Hx HEENT Problems: No - RENAL Hx Chronic Kidney Disease: No - ENDOCRINE/METABOLIC Hx Endocrine Disorders: Yes Hx Diabetes Mellitus Type 1: Yes - HEMATOLOGICAL/ONCOLOGICAL Hx Blood Disorders: No Hx Human Immunodeficiency Virus (HIV): No - INTEGUMENTARY Hx Dermatological Problems: No - MUSCULOSKELETAL/RHEUMATOLOGICAL Hx Musculoskeletal Disorders: Yes Hx Falls: No Hx Unsteady Gait: Yes Other/Comment: Right AKA - GASTROINTESTINAL Hx Gastrointestinal Disorders: Yes Hx Pancreatitis: Yes - GENITOURINARY/GYNECOLOGICAL Hx Genitourinary Disorders: No - PSYCHIATRIC Hx Psychophysiologic Disorder: No Hx Substance Use: No - SURGICAL HISTORY Hx Surgeries: Yes Hx Amputation: Yes (RIGHT ABOVE THE KNEE) - ANESTHESIA Hx Anesthesia: Yes Hx Anesthesia Reactions: No Hx Malignant Hyperthermia: No Has any member of the family had a problem w/ anesthesia?: No Meds Allergies/Adverse Reactions: Allergies Allergy/AdvReac Type Severity Reaction Status Date / Time moxifloxacin HCl Allergy REDNESS Verified 09/16/16 20:39 [From Avelox] Penicillins Allergy RASH Verified 09/16/16 20:39 vancomycin AdvReac RASH Verified 09/16/16 20:39 - Medications Medications: Current Medications Diltiazem HCl 125 mg/ Dextrose 125 mls @ 5 mls/hr IV .Q24H ROSY; 5 MG/HR PRN Reason: Protocol Last Admin: 09/17/16 01:19 Dose: 5 mg/hr, 5 mls/hr Pantoprazole Sodium (Protonix Inj) 40 mg IVP DAILY ROSY Results - Vital Signs Recent Vital Signs: Last Vital Signs Temp 97.4 F L 09/17/16 04:00 Pulse 70 09/17/16 07:16 Resp 20 09/17/16 07:16 BP 109/67 09/17/16 07:16 Pulse Ox 100 09/17/16 07:16 - Labs Result Diagrams: 09/17/16 06:20 09/17/16 06:22 Labs: Laboratory Results - last 24 hr 09/17/16 09/17/16 09/17/16 00:05 06:20 06:22 WBC 6.8 RBC 3.46 L Hgb 10.2 L D Hct 31.4 L MCV 90.9 MCH 29.6 MCHC 32.6 L RDW 17.6 H Plt Count 178 MPV 7.8 Neut % (Auto) 47.6 L Lymph % (Auto) 37.2 [place] % (Auto) 10.0 Eos % (Auto) 4.3 H Baso % (Auto) 0.9 Neut # 3.3 Lymph # 2.5 [place] # 0.7 Eos # 0.3 Baso # 0.1 Sodium Potassium Chloride Carbon Dioxide Anion Gap BUN Creatinine Est GFR ( Amer) Est GFR (Non-Af Amer) POC Glucose (mg/dL) Random Glucose Calcium Phosphorus Magnesium Total Bilirubin AST ALT Alkaline Phosphatase Total Creatine Kinase 213 H CK-MB (Mass) 19.9 H Troponin I, Quant 8.7500 H* Total Protein Albumin Globulin Albumin/Globulin Ratio Urine Color Yellow Urine Clarity Clear Urine pH 5.0 Ur Specific [place] 1.019 Urine Protein Negative Urine Glucose (UA) Normal Urine Ketones Negative Urine Blood Negative Urine Nitrate Negative Urine Bilirubin Negative Urine Urobilinogen Normal Ur Leukocyte Esterase Neg Urine WBC (Auto) 1 Urine RBC (Auto) < 1 Ur Squamous Epith Cells 3 09/17/16 09/17/16 06:22 06:58 WBC RBC Hgb Hct MCV MCH MCHC RDW Plt Count MPV Neut % (Auto) Lymph % (Auto) [place] % (Auto) Eos % (Auto) Baso % (Auto) Neut # Lymph # [place] # Eos # Baso # Sodium 127 L Potassium 3.7 Chloride 100 Carbon Dioxide 14 L Anion Gap 17 BUN 23 H Creatinine 1.0 Est GFR ( Amer) > 60 Est GFR (Non-Af Amer) > 60 POC Glucose (mg/dL) 88 Random Glucose 429 H* D Calcium 5.8 L* D Phosphorus 2.9 Magnesium 1.2 L Total Bilirubin 0.9 AST 46 ALT 18 L Alkaline Phosphatase 27 L D Total Creatine Kinase CK-MB (Mass) Troponin I, Quant Total Protein 4.4 L Albumin 1.9 L D Globulin 2.5 Albumin/Globulin Ratio 0.8 L Urine Color Urine Clarity Urine pH Ur Specific [place] Urine Protein Urine Glucose (UA) Urine Ketones Urine Blood Urine Nitrate Urine Bilirubin Urine Urobilinogen Ur Leukocyte Esterase Urine WBC (Auto) Urine RBC (Auto) Ur Squamous Epith Cells
--- NOTE | 2016-09-17 11:19 | CARD ---
APPROVED REPORT EKG Measurement Heart [id number] <Conclusion> Sinus tachycardia Rightward axis T wave abnormality, consider inferior ischemia Abnormal ECG
[2016-09-17] MEDS ORDERED: Enoxaparin 40 mg Syringe SC SCH (11:30)
[2016-09-17] MEDS: (Novolog) Insulin Aspart, Recombinant 100 u/ml 10 ml vial SC SCH ×3 (12:04→22:20)
[2016-09-17 12:15] LABS: ALBUMIN 2.9 g/dL (3.5-5.0)
[2016-09-17 12:18] LABS: ALB/GLOB RATIO 0.8 (1.0-2.1)
[2016-09-17 12:19] LABS: CALCIUM 8.6 mg/dl (8.6-10.4)
[2016-09-17 12:27] LABS: CK-MB 18.9 ng/mL (0.0-3.38)
[2016-09-17] MEDS ORDERED: Enoxaparin 150 mg Syringe SC ONE (12:59)
[2016-09-17] MEDS ORDERED: Enoxaparin 40 mg Syringe SC ONE (13:32)
[2016-09-17 14:02] LABS: MAGNESIUM 1.8 mg/dL (1.6-2.3)
--- NOTE | 2016-09-17 16:52 | CP.PCM.CON ---
History of Present Illness - History of Present Illness History of Present Illness: I was asked to evaluate patient by Dr. Pimentel. Patient is a 86 year old male with PMh HTn, hypercholesterolemia, CAD who presents with afib with RVR. The patient was found to be tachypneic, and developed rapid heart rate. He ruled in for MY. He was given cardizem and transferred to ICU. He denies current chest pain. Review of Systems - Constitutional Constitutional: absent: As Per HPI, Anorexia, Chills, Daytime Sleepiness, Excessive Sweating, Fatigue, Fever, Frequent Falls, Headache, Increased Appetite , Lethargy, Malaise, Night Sweats, Snoring, Sleep Apnea, Weight Gain, Weight Loss, Weakness, Other - EENT Ears: absent: As Per HPI, Decreased Hearing, Ear Discharge, Ear Pain, Tinnitus, Abnormal Hearing, Disequilibrium, Dizziness, Other Nose/Mouth/Throat: absent: As Per HPI, Epistaxis, Nasal Congestion, Nasal Discharge, Nasal Obstruction, Nasal Trauma, Nose Pain, Post Nasal Drip, Sinus Pain, Sinus Pressure, Bleeding Gums, Change in Voice, Dental Pain, Dry Mouth, Dysphagia, Halitosis, Hoarsness, Lip Swelling, Mouth Lesions, Mouth Pain, Odynophagia, Sore Throat, Throat Swelling, Tongue Swelling, Facial Pain, Neck Pain, Neck Mass, Other - Cardiovascular Cardiovascular: Dyspnea, Palpitations - Respiratory Respiratory: Dyspnea - Gastrointestinal Gastrointestinal: absent: As Per HPI, Abdominal Pain, Belching, Bloating, Change in Bowel Habits, Change in Stool Character, Coffee Ground Emesis, Constipation, Cramping, Diarrhea, Dyspepsia, Dysphagia, Early Satiety, Excessive Flatus, Fecal Incontinence, Heartburn, Hematemesis, Hematochezia, Loose Stools, Melena, Nausea, Odynophagia, Temesmus, Vomiting, Other - Genitourinary Genitourinary: absent: As Per HPI, Change in Urinary Stream, Difficulty Urinating, Dysuria, Flank Pain, Hematuria, Pyuria, Nocturia, Urinary Incontinence, Urinary Frequency, Urinary Hesitance, Urinary Urgency, Voiding Freq/Small Amts, Freq UTI, Hx Renal/Bladder Calculi, Hx /Renal Surgery, Bladder Distension, Other - Musculoskeletal Musculoskeletal: absent: As Per HPI, Abnormal Gait, Arthralgias, Atrophy, Back Pain, Deformity, Joint Swelling, Limited Range of Motion, Loss of Height, Muscle Cramps, Muscle Weakness, Myalgias, Neck Pain, Numbness, Radiating Pain into Limb, Stiffness, Tingling, Other - Integumentary Integumentary: absent: As Per HPI, Acne, Alopecia, Bleeding Lesions, Change in Hair, Change in Nails, Change in Pigmentation, Changing Lesions, Dry Skin, Erythema, Furuncle, Hirsutism, Lesions, New Lesions, Non-Healing Lesions, Photosensitivity, Pruritus, Rash, Skin Pain, Skin Ulcer, Sores, Striae, Swelling , Unusual Bruising, Wounds, Jaundice, Other - Neurological Neurological: absent: As Per HPI, Abnormal Gait, Abnormal Hearing, Abnormal Movements, Abnormal Speech, Behavioral Changes, Burning Sensations, Confusion, Convulsions, Disequilibrium, Dizziness, Numbness, Focal Weakness, Frequent Falls , Headaches, Lack of Coordination, Loss of Vision, Memory Loss, Paresthesias, Radicular Pain, Restless Legs, Sensory Deficit, Syncope, Tingling, Tremor, Vertigo, Weakness, Other Visual Disturbances, Other - Psychiatric Psychiatric: absent: As Per HPI, Abnormal Sleep Pattern, Anhedonia, Anxiety, Auditory Hallucinations, Behavioral Changes, Change in Appetite, Change in Libido, Confusion, Depression, Difficulty Concentrating, Hallucinations, Homicidal Ideation, Hopelessness, Irritability, Memory Loss, Mood Swings, Panic Attacks, Paranoia, Suicidal Ideation, Visual Hallucinations, Tactile Hallucinations, Other - Endocrine Endocrine: absent: As Per HPI, Change in Body Appearance, Change in Libido, Cold Intolorance, Deepening of Voice, Excessive Sweating, Fatigue, Flushing, Heat Intolorance, Increase in Ring/Shoe/Hat Size, Palpitations, Polydipsia, Polyphagia, Polyuria, Other - Hematologic/Lymphatic Hematologic: absent: As Per HPI, Easy Bleeding, Easy Bruising, Lymphadenopathy, Other Past Patient History - Infectious Disease Hx of Infectious Diseases: None - Past Medical History & Family History Past Medical History?: Yes - Past Social History Smoking Status: Former Smoker - CARDIAC Hx Cardiac Disorders: Yes Hx Atrial Fibrillation: Yes Hx Congestive Heart Failure: Yes Hx Hypercholesterolemia: Yes Hx Hypertension: Yes - PULMONARY Hx Respiratory Disorders: Yes Hx Chronic Obstructive Pulmonary Disease (COPD): Yes - NEUROLOGICAL Hx Neurological Disorder: Yes Hx Dementia: Yes - HEENT Hx HEENT Problems: No - RENAL Hx Chronic Kidney Disease: No - ENDOCRINE/METABOLIC Hx Endocrine Disorders: Yes Hx Diabetes Mellitus Type 1: Yes - HEMATOLOGICAL/ONCOLOGICAL Hx Blood Disorders: No Hx Human Immunodeficiency Virus (HIV): No - INTEGUMENTARY Hx Dermatological Problems: No - MUSCULOSKELETAL/RHEUMATOLOGICAL Hx Musculoskeletal Disorders: Yes Hx Falls: No Hx Unsteady Gait: Yes Other/Comment: Right AKA - GASTROINTESTINAL Hx Gastrointestinal Disorders: Yes Hx Pancreatitis: Yes - GENITOURINARY/GYNECOLOGICAL Hx Genitourinary Disorders: No - PSYCHIATRIC Hx Psychophysiologic Disorder: No Hx Substance Use: No - SURGICAL HISTORY Hx Surgeries: Yes Hx Amputation: Yes (RIGHT ABOVE THE KNEE) - ANESTHESIA Hx Anesthesia: Yes Hx Anesthesia Reactions: No Hx Malignant Hyperthermia: No Has any member of the family had a problem w/ anesthesia?: No Meds Allergies/Adverse Reactions: Allergies Allergy/AdvReac Type Severity Reaction Status Date / Time moxifloxacin HCl Allergy REDNESS Verified 09/16/16 20:39 [From Avelox] Penicillins Allergy RASH Verified 09/16/16 20:39 vancomycin AdvReac RASH Verified 09/16/16 20:39 - Medications Medications: Current Medications Carvedilol (Coreg) 12.5 mg PO BID COUNT INCLUDES THE [facility] Last Admin: 09/17/16 12:03 Dose: 12.5 mg Enoxaparin Sodium (Lovenox) 60 mg SC Q12 ROSY Diltiazem HCl 125 mg/ Dextrose 125 mls @ 5 mls/hr IV .Q24H ROSY; 5 MG/HR PRN Reason: Protocol Last Admin: 09/17/16 01:19 Dose: 5 mg/hr, 5 mls/hr Insulin Aspart (Novolog) 0 unit SC ACHS ROSY PRN Reason: Protocol Last Admin: 09/17/16 12:04 Dose: Not Given Pantoprazole Sodium (Protonix Ec Tab) 40 mg PO DAILY ROSY Physical Exam - Constitutional Appears: Non-toxic - Head Exam Head Exam: NORMAL INSPECTION - Eye Exam Eye Exam: Normal appearance - ENT Exam ENT Exam: Mucous Membranes Moist - Neck Exam Neck exam: Positive for: Full Rom - Respiratory Exam Respiratory Exam: Decreased Breath Sounds - Cardiovascular Exam Cardiovascular Exam: Irregular Rhythm - GI/Abdominal Exam GI & Abdominal Exam: Normal Bowel Sounds - Rectal Exam Rectal Exam: Deferred - Extremities Exam Extremities exam: Positive for: pedal edema - Back Exam Back exam: NORMAL INSPECTION - Neurological Exam Neurological exam: Alert, Oriented x3 - Psychiatric Exam Psychiatric exam: Normal Affect - Skin Skin Exam: Normal Color Results - Vital Signs Recent Vital Signs: Last Vital Signs Temp 97.4 F L 09/17/16 16:00 Pulse 99 H 09/17/16 16:16 Resp 20 09/17/16 16:16 BP 110/61 09/17/16 16:16 Pulse Ox 100 09/17/16 16:16 - Labs Result Diagrams: 09/18/16 06:17 09/21/16 06:16 Labs: Laboratory Results - last 24 hr 09/17/16 09/17/16 09/17/16 00:05 06:20 06:22 WBC 6.8 RBC 3.46 L Hgb 10.2 L D Hct 31.4 L MCV 90.9 MCH 29.6 MCHC 32.6 L RDW 17.6 H Plt Count 178 MPV 7.8 Neut % (Auto) 47.6 L Lymph % (Auto) 37.2 [place] % (Auto) 10.0 Eos % (Auto) 4.3 H Baso % (Auto) 0.9 Neut # 3.3 Lymph # 2.5 [place] # 0.7 Eos # 0.3 Baso # 0.1 Sodium Potassium Chloride Carbon Dioxide Anion Gap BUN Creatinine Est GFR ( Amer) Est GFR (Non-Af Amer) POC Glucose (mg/dL) Random Glucose Calcium Phosphorus Magnesium Total Bilirubin AST ALT Alkaline Phosphatase Total Creatine Kinase 213 H CK-MB (Mass) 19.9 H Troponin I, Quant 8.7500 H* Total Protein Albumin Globulin Albumin/Globulin Ratio Urine Color Yellow Urine Clarity Clear Urine pH 5.0 Ur Specific [place] 1.019 Urine Protein Negative Urine Glucose (UA) Normal Urine Ketones Negative Urine Blood Negative Urine Nitrate Negative Urine Bilirubin Negative Urine Urobilinogen Normal Ur Leukocyte Esterase Neg Urine WBC (Auto) 1 Urine RBC (Auto) < 1 Ur Squamous Epith Cells 3 09/17/16 09/17/16 09/17/16 06:22 06:58 11:43 WBC RBC Hgb Hct MCV MCH MCHC RDW Plt Count MPV Neut % (Auto) Lymph % (Auto) [place] % (Auto) Eos % (Auto) Baso % (Auto) Neut # Lymph # [place] # Eos # Baso # Sodium 127 L 140 Potassium 3.7 4.8 Chloride 100 108 H Carbon Dioxide 14 L 20 L Anion Gap 17 17 BUN 23 H 31 H Creatinine 1.0 1.5 Est GFR ( Amer) > 60 54 Est GFR (Non-Af Amer) > 60 44 POC Glucose (mg/dL) 88 Random Glucose 429 H* D 81 Calcium 5.8 L* D 8.6 Phosphorus 2.9 4.1 Magnesium 1.2 L 1.8 Total Bilirubin 0.9 0.8 AST 46 63 H D ALT 18 L 15 L Alkaline Phosphatase 27 L D 43 Total Creatine Kinase 256 H CK-MB (Mass) 18.9 H Troponin I, Quant 10.3000 H* Total Protein 4.4 L 6.3 Albumin 1.9 L D 2.9 L D Globulin 2.5 3.4 Albumin/Globulin Ratio 0.8 L 0.8 L Urine Color Urine Clarity Urine pH Ur Specific [place] Urine Protein Urine Glucose (UA) Urine Ketones Urine Blood Urine Nitrate Urine Bilirubin Urine Urobilinogen Ur Leukocyte Esterase Urine WBC (Auto) Urine RBC (Auto) Ur Squamous Epith Cells 09/17/16 09/17/16 11:56 16:24 WBC RBC Hgb Hct MCV MCH MCHC RDW Plt Count MPV Neut % (Auto) Lymph % (Auto) [place] % (Auto) Eos % (Auto) Baso % (Auto) Neut # Lymph # [place] # Eos # Baso # Sodium Potassium Chloride Carbon Dioxide Anion Gap BUN Creatinine Est GFR ( Amer) Est GFR (Non-Af Amer) POC Glucose (mg/dL) 98 175 H Random Glucose Calcium Phosphorus Magnesium Total Bilirubin AST ALT Alkaline Phosphatase Total Creatine Kinase CK-MB (Mass) Troponin I, Quant Total Protein Albumin Globulin Albumin/Globulin Ratio Urine Color Urine Clarity Urine pH Ur Specific [place] Urine Protein Urine Glucose (UA) Urine Ketones Urine Blood Urine Nitrate Urine Bilirubin Urine Urobilinogen Ur Leukocyte Esterase Urine WBC (Auto) Urine RBC (Auto) Ur Squamous Epith Cells Assessment & Plan (1) Atrial fibrillation Assessment and Plan: continue current mangement. will rate control. not ideal candidate for longeterm anticoagulation Status: Acute (2) NSTEMI (non-ST elevated myocardial infarction) Assessment and Plan: known CAD. Patient is at high risk for coronary intervention given ostial location. will attempt medical therapy Status: Acute (3) CAD (coronary artery disease) Assessment and Plan: medical management Status: Acute (4) Hypertension Assessment and Plan: blood pressure control Status: Chronic Priority: High
--- NOTE | 2016-09-17 19:25 | CARD ---
APPROVED REPORT EXAM: Two-dimensional and M-mode echocardiogram with Doppler and color Doppler. Other Information Quality : GoodRhythm : INDICATION CAD Congestive Heart Failure COPD Palpitations ELEVATED TROPONIN, Surgery/Intervention RISK FACTORS Hypertension Hyperlipidemia 2D DIMENSIONS IVSd1.2 (0.7-1.1cm)Aortic Root (2D)3.1 (2.0-3.7cm) LVDd3.9 (3.9-5.9cm)PWd1.7 (0.7-1.1cm) LVDs3.1 (2.5-4.0cm)FS (%) 18.8 % LVEF (%)39.5 (>50%) M-Mode DIMENSIONS Left Atrium (MM)3.54 (2.5-4.0cm)Aortic Root3.28 (2.2-3.7cm) Aortic Cusp Exc.1.95 (1.5-2.0cm) Aortic Valve AI P 1/2 [id number] Mitral Valve MV E [id number]/sE/A ratio0.0 TDI E/Lateral E'0.0E/Medial E'0.0 Tricuspid Valve TR Peak [id number]/sTR Peak [id number] LEFT VENTRICLE The left ventricle is normal size. There is mild to moderate concentric left ventricular hypertrophy. Left ventricle systolic function is severely impaired. The Ejection Fraction is 20-25%. There is global hypokinesis of the left ventricle. There is a flattened septum consistent with right ventricle volume overload. Atrial fibrilation, persumed diastolic dysfunction There is no ventricular septal defect visualized. RIGHT VENTRICLE The right ventricle is mildly dilated. Systolic function is mildly reduced. There is a pacemaker lead in the right ventricle. ATRIA The left atrium is moderately dilated. The right atrium is moderately dilated. AORTIC VALVE The aortic valve is mildly sclerotic. The aortic valve is trileaflet. There is trace aortic regurgitation. There is no aortic valvular stenosis. MITRAL VALVE Mitral annular calcification is mild. There is no evidence of mitral valve prolapse. Mitral regurgitation is mild. The mitral regurgitant jet is anteriorly directed, which is consistent with posterior leaflet pathology. TRICUSPID VALVE The tricuspid valve is normal in structure. There is mild to moderate tricuspid regurgitation. Right ventricular systolic pressure is estimated at 50-60 mmHg. There is moderate pulmonary hypertension. PULMONIC VALVE The pulmonic valve is not well visualized. There is no pulmonic valvular regurgitation. GREAT VESSELS The IVC is normal in size and collapses >50% with inspiration. PERICARDIAL EFFUSION There is no pericardial effusion. <Conclusion> There is mild to moderate concentric left ventricular hypertrophy. Left ventricle systolic function is severely impaired. The Ejection Fraction is 20-25%. There is global hypokinesis of the left ventricle. There is a flattened septum consistent with right ventricle volume overload. Atrial fibrilation, persumed diastolic dysfunction There is trace aortic regurgitation. Mitral regurgitation is mild. There is moderate pulmonary hypertension.
[2016-09-17 21:04] LABS: CK-MB 12.7 ng/mL (0.0-3.38)
[2016-09-17] MEDS: Enoxaparin 60 mg Syringe SC SCH (21:26)
--- NOTE | 2016-09-17 22:50 | CP.PCM.HP ---
History of Present Illness - History of Present Illness History of Present Illness: Cheif complain: palpitations, dizziness Mr. Zepeda is 86 Y/O AA M well known to me with PMHx of HTN, Hypercholesterolemia, CAD, CHF, COPD, Dementia, Deep Vein Thrombosis and Pancreatitis, he is complaint with diet, medication and follow up Pt was in [facility] and then transferred at [facility] under my care yesterday when i saw the pt he was tachycardic, and in rapid A.fib complains of chest pain and was transferred to ER States he does not feel well. In the emergency department, he was in A Fib/Flutter with RVR, he was started on cardiazem drip Also Labs significant for worsening or renal function with hyperkalemia, elevated Trop and BNP INR 2.3 Patient received 100 mg Lovenox, 40 mg IV Lasix and was started on cardiazem drip Admitted to the ICU for Atrial arrhythmia, NSTEMI (non-ST elevated myocardial infarction) Present on Admission - Present on Admission Any Indicators Present on Admission: Yes Review of Systems - Review of Systems Systems not reviewed;Unavailable: Unstable Vital Signs - Constitutional Constitutional: Fatigue, Lethargy, Weakness - EENT Eyes: absent: As Per HPI, Blind Spots, Blurred Vision, Change in Vision, Decreased Night Vision, Diplopia, Discharge, Dry Eye, Exophthalmos, Floaters, Irritation, Itchy Eyes, Loss of Peripheral Vision, Pain, Photophobia, Requires Corrective Lenses, Sees Flashes, Spots in Vision, Tunnel Vision, Other Visual Disturbances, Loss of Vision, Other Nose/Mouth/Throat: absent: As Per HPI, Epistaxis, Nasal Congestion, Nasal Discharge, Nasal Obstruction, Nasal Trauma, Nose Pain, Post Nasal Drip, Sinus Pain, Sinus Pressure, Bleeding Gums, Change in Voice, Dental Pain, Dry Mouth, Dysphagia, Halitosis, Hoarsness, Lip Swelling, Mouth Lesions, Mouth Pain, Odynophagia, Sore Throat, Throat Swelling, Tongue Swelling, Facial Pain, Neck Pain, Neck Mass, Other - Cardiovascular Cardiovascular: Chest Pain, Dyspnea, Irregular Heart Rhythm, Lightheadedness, Rapid Heart Rate - Respiratory Respiratory: Cough, Wheezing - Gastrointestinal Gastrointestinal: Nausea. absent: As Per HPI, Abdominal Pain, Belching, Bloating, Change in Bowel Habits, Change in Stool Character, Coffee Ground Emesis, Constipation, Cramping, Diarrhea, Dyspepsia, Dysphagia, Early Satiety, Excessive Flatus, Fecal Incontinence, Heartburn, Hematemesis, Hematochezia, Loose Stools, Melena, Odynophagia, Temesmus, Vomiting, Other - Neurological Neurological: Dizziness - Psychiatric Psychiatric: Anxiety Past Patient History - Infectious Disease Hx of Infectious Diseases: None - Past Medical History & Family History Past Medical History?: Yes - Past Social History Smoking Status: Former Smoker - CARDIAC Hx Cardiac Disorders: Yes Hx Atrial Fibrillation: Yes Hx Congestive Heart Failure: Yes Hx Hypercholesterolemia: Yes Hx Hypertension: Yes - PULMONARY Hx Respiratory Disorders: Yes Hx Chronic Obstructive Pulmonary Disease (COPD): Yes - NEUROLOGICAL Hx Neurological Disorder: Yes Hx Dementia: Yes - HEENT Hx HEENT Problems: No - RENAL Hx Chronic Kidney Disease: No - ENDOCRINE/METABOLIC Hx Endocrine Disorders: Yes Hx Diabetes Mellitus Type 1: Yes - HEMATOLOGICAL/ONCOLOGICAL Hx Blood Disorders: No Hx Human Immunodeficiency Virus (HIV): No - INTEGUMENTARY Hx Dermatological Problems: No - MUSCULOSKELETAL/RHEUMATOLOGICAL Hx Musculoskeletal Disorders: Yes Hx Falls: No Hx Unsteady Gait: Yes Other/Comment: Right AKA - GASTROINTESTINAL Hx Gastrointestinal Disorders: Yes Hx Pancreatitis: Yes - GENITOURINARY/GYNECOLOGICAL Hx Genitourinary Disorders: No - PSYCHIATRIC Hx Psychophysiologic Disorder: No Hx Substance Use: No - SURGICAL HISTORY Hx Surgeries: Yes Hx Amputation: Yes (RIGHT ABOVE THE KNEE) - ANESTHESIA Hx Anesthesia: Yes Hx Anesthesia Reactions: No Hx Malignant Hyperthermia: No Has any member of the family had a problem w/ anesthesia?: No Meds Allergies/Adverse Reactions: Allergies Allergy/AdvReac Type Severity Reaction Status Date / Time moxifloxacin HCl Allergy REDNESS Verified 09/16/16 20:39 [From Avelox] Penicillins Allergy RASH Verified 09/16/16 20:39 vancomycin AdvReac RASH Verified 09/16/16 20:39 Physical Exam - Constitutional Appears: In Acute Distress - Head Exam Head Exam: ATRAUMATIC, NORMAL INSPECTION, NORMOCEPHALIC - Eye Exam Eye Exam: EOMI, Normal appearance, PERRL Pupil Exam: NORMAL ACCOMODATION, PERRL - Respiratory Exam Respiratory Exam: Wheezes - Cardiovascular Exam Cardiovascular Exam: Irregular Rhythm, +S1, +S2 - GI/Abdominal Exam GI & Abdominal Exam: Normal Bowel Sounds, Soft. absent: Tenderness - Extremities Exam Additional comments: s/p right BKA Results - Vital Signs Recent Vital Signs: Last Vital Signs Temp 97.4 F L 09/17/16 16:00 Pulse 85 09/17/16 22:16 Resp 20 09/17/16 22:16 BP 103/66 09/17/16 22:16 Pulse Ox 99 09/17/16 22:16 - Labs Result Diagrams: 09/18/16 06:17 09/18/16 06:17 Labs: Laboratory Results - last 24 hr 09/17/16 09/17/16 09/17/16 00:05 06:20 06:22 WBC 6.8 RBC 3.46 L Hgb 10.2 L D Hct 31.4 L MCV 90.9 MCH 29.6 MCHC 32.6 L RDW 17.6 H Plt Count 178 MPV 7.8 Neut % (Auto) 47.6 L Lymph % (Auto) 37.2 [place] % (Auto) 10.0 Eos % (Auto) 4.3 H Baso % (Auto) 0.9 Neut # 3.3 Lymph # 2.5 [place] # 0.7 Eos # 0.3 Baso # 0.1 Sodium Potassium Chloride Carbon Dioxide Anion Gap BUN Creatinine Est GFR ( Amer) Est GFR (Non-Af Amer) POC Glucose (mg/dL) Random Glucose Calcium Phosphorus Magnesium Total Bilirubin AST ALT Alkaline Phosphatase Total Creatine Kinase 213 H CK-MB (Mass) 19.9 H Troponin I, Quant 8.7500 H* Total Protein Albumin Globulin Albumin/Globulin Ratio Urine Color Yellow Urine Clarity Clear Urine pH 5.0 Ur Specific [place] 1.019 Urine Protein Negative Urine Glucose (UA) Normal Urine Ketones Negative Urine Blood Negative Urine Nitrate Negative Urine Bilirubin Negative Urine Urobilinogen Normal Ur Leukocyte Esterase Neg Urine WBC (Auto) 1 Urine RBC (Auto) < 1 Ur Squamous Epith Cells 3 09/17/16 09/17/16 09/17/16 06:22 06:58 11:43 WBC RBC Hgb Hct MCV MCH MCHC RDW Plt Count MPV Neut % (Auto) Lymph % (Auto) [place] % (Auto) Eos % (Auto) Baso % (Auto) Neut # Lymph # [place] # Eos # Baso # Sodium 127 L 140 Potassium 3.7 4.8 Chloride 100 108 H Carbon Dioxide 14 L 20 L Anion Gap 17 17 BUN 23 H 31 H Creatinine 1.0 1.5 Est GFR ( Amer) > 60 54 Est GFR (Non-Af Amer) > 60 44 POC Glucose (mg/dL) 88 Random Glucose 429 H* D 81 Calcium 5.8 L* D 8.6 Phosphorus 2.9 4.1 Magnesium 1.2 L 1.8 Total Bilirubin 0.9 0.8 AST 46 63 H D ALT 18 L 15 L Alkaline Phosphatase 27 L D 43 Total Creatine Kinase 256 H CK-MB (Mass) 18.9 H Troponin I, Quant 10.3000 H* Total Protein 4.4 L 6.3 Albumin 1.9 L D 2.9 L D Globulin 2.5 3.4 Albumin/Globulin Ratio 0.8 L 0.8 L Urine Color Urine Clarity Urine pH Ur Specific [place] Urine Protein Urine Glucose (UA) Urine Ketones Urine Blood Urine Nitrate Urine Bilirubin Urine Urobilinogen Ur Leukocyte Esterase Urine WBC (Auto) Urine RBC (Auto) Ur Squamous Epith Cells 09/17/16 09/17/16 09/17/16 11:56 16:24 20:33 WBC RBC Hgb Hct MCV MCH MCHC RDW Plt Count MPV Neut % (Auto) Lymph % (Auto) [place] % (Auto) Eos % (Auto) Baso % (Auto) Neut # Lymph # [place] # Eos # Baso # Sodium Potassium Chloride Carbon Dioxide Anion Gap BUN Creatinine Est GFR ( Amer) Est GFR (Non-Af Amer) POC Glucose (mg/dL) 98 175 H Random Glucose Calcium Phosphorus Magnesium Total Bilirubin AST ALT Alkaline Phosphatase Total Creatine Kinase 218 H CK-MB (Mass) 12.7 H Troponin I, Quant 8.4800 H* Total Protein Albumin Globulin Albumin/Globulin Ratio Urine Color Urine Clarity Urine pH Ur Specific [place] Urine Protein Urine Glucose (UA) Urine Ketones Urine Blood Urine Nitrate Urine Bilirubin Urine Urobilinogen Ur Leukocyte Esterase Urine WBC (Auto) Urine RBC (Auto) Ur Squamous Epith Cells 09/17/16 21:16 WBC RBC Hgb Hct MCV MCH MCHC RDW Plt Count MPV Neut % (Auto) Lymph % (Auto) [place] % (Auto) Eos % (Auto) Baso % (Auto) Neut # Lymph # [place] # Eos # Baso # Sodium Potassium Chloride Carbon Dioxide Anion Gap BUN Creatinine Est GFR ( Amer) Est GFR (Non-Af Amer) POC Glucose (mg/dL) 109 Random Glucose Calcium Phosphorus Magnesium Total Bilirubin AST ALT Alkaline Phosphatase Total Creatine Kinase CK-MB (Mass) Troponin I, Quant Total Protein Albumin Globulin Albumin/Globulin Ratio Urine Color Urine Clarity Urine pH Ur Specific [place] Urine Protein Urine Glucose (UA) Urine Ketones Urine Blood Urine Nitrate Urine Bilirubin Urine Urobilinogen Ur Leukocyte Esterase Urine WBC (Auto) Urine RBC (Auto) Ur Squamous Epith Cells Assessment & Plan (1) Acute [place] Assessment and Plan: most likely demand ischemia Status: Acute (2) Atrial arrhythmia Status: Acute (3) Palpitations Status: Acute (4) CAD (coronary artery disease) Status: Acute (5) Elevated troponin Status: Acute Priority: Medium (6) Generalized weakness Status: Acute
[2016-09-17] MEDS: Albuterol 0.083% Inhal Sol (2.5 mg/3 mL) UD INH SCH ×3 (22:51→23:42)
[2016-09-18 06:28] LABS: BASO % 0.7 % (0.0-2.0); EOS # 0.3 K/uL (0.0-0.7); EOS % 4.1 % (0.0-4.0); HEMOGLOBIN 11.7 g/dL (12.0-18.0); LYMPH # 2.7 K/uL (1.0-4.3); LYMPH % 37.5 % (20.0-40.0); MEAN CELL VOLUME 90.3 fL (80.0-94.0); MEAN CORPUSCULAR HEMOGLOBIN 29.3 pg (27.0-31.0); MEAN CORPUSCULAR HGB CONC 32.5 g/dL (33.0-37.0); MEAN PLATELET VOLUME 8.2 fL (7.2-11.7); MONO # 0.7 K/uL (0.0-0.8); MONO % 10.1 % (0.0-10.0); NEUT # 3.4 K/uL (1.8-7.0); NEUT % 47.6 % (50.0-75.0); RED CELL DISTRIBUTION WIDTH 17.2 % (11.5-14.5); WHITE BLOOD COUNT 7.1 K/uL (4.8-10.8)
[2016-09-18 06:40] LABS: ALBUMIN 2.7 g/dL (3.5-5.0)
[2016-09-18 06:43] LABS: ALB/GLOB RATIO 0.8 (1.0-2.1)
[2016-09-18 06:44] LABS: CALCIUM 8.2 mg/dl (8.6-10.4); MAGNESIUM 1.7 mg/dL (1.6-2.3)
[2016-09-18] MEDS: Albuterol 0.083% Inhal Sol (2.5 mg/3 mL) UD INH SCH ×2 (07:52→16:08)
[2016-09-18] MEDS: (Novolog) Insulin Aspart, Recombinant 100 u/ml 10 ml vial SC SCH ×4 (08:02→22:08)
[2016-09-18] MEDS: Enoxaparin 60 mg Syringe SC SCH ×2 (09:19→21:39)
[2016-09-18] MEDS: Pantoprazole 40 mg EC Tab PO SCH (09:20)
--- NOTE | 2016-09-18 12:17 | RAD ---
HISTORY: COPD COMPARISON: 09/16/2016 FINDINGS: LUNGS: No infiltrate. Nodular opacities seen at right lung base on prior examination is not evident currently. PLEURA: Probable small left pleural effusion. No evidence of right pleural effusion. No pneumothorax. CARDIOVASCULAR: Normal heart size. There is mild pulmonary vascular congestive change. OSSEOUS STRUCTURES: No significant abnormalities. VISUALIZED UPPER ABDOMEN: Normal. OTHER FINDINGS: None. IMPRESSION: Possible small left pleural effusion. Mild pulmonary vascular congestion. No acute infiltrate.
--- NOTE | 2016-09-18 15:46 | CP.CCUPN ---
CCU Subjective - Physician Review Events Since Last Encounter (Free Text): 09/18/16 15:43 patient seen and examined in the intensive Case unit. 86 year old male with severe 2 vessel CAD who presents with afib with RVR, NSTEMI. denies any chest pain Seen by cardiology and the plan is medical management CCU Objective - Vital Signs / Intake & Output Vital Signs (Last 4 hours): Vital Signs Temp Pulse Resp BP Pulse Ox 09/18/16 15:00 90 17 122/62 99 09/18/16 14:00 83 19 110/69 97 09/18/16 13:00 88 20 105/62 95 09/18/16 12:00 98.2 F 94 H 20 109/67 97 Intake and Output (Last 8hrs): Intake & Output 09/18/16 09/18/16 09/18/16 06:59 14:59 22:59 Intake Total 250 720 Output Total 250 400 30 Balance 0 320 -30 Weight 131 lb Intake: Oral 250 720 Output: Urine 250 400 30 Urethral (Harper) 250 400 30 - Physical Exam Head: Positive for: Atraumatic, Normocephalic Pupils: Positive for: PERRL Extroacular Muscles: Positive for: EOMI Conjunctiva: Positive for: Normal. Negative for: Injected, Icteric Mouth: Positive for: Moist Mucous Membranes Nose (Internal): Positive for: Normal Inspection Neck: Positive for: Normal Range of Motion, Trachea Midline. Negative for: Meningeal Signs, MIDLINE TENDERNESS, Paraspinal Tenderness, JVD, Lymphadenopathy , Bruit, Other Respiratory/Chest: Positive for: Clear to Auscultation, Good Air Exchange, Rales. Negative for: Respiratory Distress, Accessory Muscle Use, Wheezes, Retracting Cardiovascular: Positive for: Irregular Rhythm, Peripheal Pulses Present, Tachycardic Abdomen: Positive for: Normal Bowel Sounds. Negative for: Tenderness, Distention Psychiatric: Positive for: Alert, Oriented x 3 - Medications Active Medications: Active Medications Generic Name Dose Route Start Last Admin Trade Name Freq PRN Reason Stop Dose Admin Albuterol Sulfate 1.25 mg 09/17/16 19:45 09/18/16 07:52 Albuterol 0.083% Inhal Blanca (2.5 Mg/3 Ml) Ud INH 1.25 mg RQ8 ROSY Administration Aspirin 81 mg 09/18/16 10:30 09/18/16 10:57 Ecotrin PO 81 mg DAILY ROSY Administration Carvedilol 12.5 mg 09/17/16 11:30 09/18/16 09:20 Coreg PO 12.5 mg BID ROSY Administration Enoxaparin Sodium 60 mg 09/17/16 22:00 09/18/16 09:19 Lovenox SC 60 mg Q12 ROSY Administration Diltiazem HCl 125 mg/ Dextrose 125 mls @ 5 mls/hr 09/17/16 01:00 09/18/16 13: 35 IV Not Given .Q24H ROSY Protocol 5 MG/HR Insulin Aspart 0 unit 09/17/16 11:30 09/18/16 11:26 Novolog SC Not Given ACHS ROSY Protocol Pantoprazole Sodium 40 mg 09/18/16 10:00 09/18/16 09:20 Protonix Ec Tab PO 40 mg DAILY ROSY Administration - Patient Studies Lab Studies: Microbiology Studies 09/17/16 06:00 MRSA Culture (Admit) - Final Nose MRSA NOT DETECTED Lab Studies 09/18/16 09/18/16 09/18/16 Range/Units 11:25 07:23 06:17 WBC (4.8-10.8) K/uL RBC (4.40-5.90) Mil/uL Hgb (12.0-18.0) g/dL Hct (35.0-51.0) % MCV (80.0-94.0) fL MCH (27.0-31.0) pg MCHC (33.0-37.0) g/dL RDW (11.5-14.5) % Plt Count (130-400) K/uL MPV (7.2-11.7) fL Neut % (Auto) (50.0-75.0) % Lymph % (Auto) (20.0-40.0) % Hoke % (Auto) (0.0-10.0) % Eos % (Auto) (0.0-4.0) % Baso % (Auto) (0.0-2.0) % Neut # (1.8-7.0) K/uL Lymph # (1.0-4.3) K/uL Hoke # (0.0-0.8) K/uL Eos # (0.0-0.7) K/uL Baso # (0.0-0.2) K/uL Sodium 136 (132-148) mmol/L Potassium 4.6 (3.6-5.2) mmol/L Chloride 106 (98-107) mmol/L Carbon Dioxide 21 L (22-30) mmol/L Anion Gap 14 (10-20) BUN 28 H (9-20) mg/dL Creatinine 1.6 H (0.8-1.5) MG/DL Est GFR ( Amer) 50 Est GFR (Non-Af Amer) 41 POC Glucose (mg/dL) 97 135 H (65-110) mg/dL Random Glucose 78 (75-110) mg/dL Calcium 8.2 L (8.6-10.4) mg/dl Phosphorus 3.5 (2.5-4.5) mg/dL Magnesium 1.7 (1.6-2.3) mg/dL Total Bilirubin 0.8 (0.2-1.3) mg/dL AST 41 (17-59) U/L ALT 17 L (21-72) U/L Alkaline Phosphatase 42 (38-126) U/L Total Creatine Kinase (55-170) U/L CK-MB (Mass) (0.0-3.38) ng/mL Troponin I, Quant (0.00-0.120) ng/mL Total Protein 6.0 L (6.3-8.3) g/dL Albumin 2.7 L (3.5-5.0) g/dL Globulin 3.3 (2.2-3.9) gm/dL Albumin/Globulin Ratio 0.8 L (1.0-2.1) 09/18/16 09/17/16 09/17/16 Range/Units 06:17 21:16 20:33 WBC 7.1 (4.8-10.8) K/uL RBC 4.00 L (4.40-5.90) Mil/uL Hgb 11.7 L (12.0-18.0) g/dL Hct 36.1 (35.0-51.0) % MCV 90.3 (80.0-94.0) fL MCH 29.3 (27.0-31.0) pg MCHC 32.5 L (33.0-37.0) g/dL RDW 17.2 H (11.5-14.5) % Plt Count 210 (130-400) K/uL MPV 8.2 (7.2-11.7) fL Neut % (Auto) 47.6 L (50.0-75.0) % Lymph % (Auto) 37.5 (20.0-40.0) % Hoke % (Auto) 10.1 H (0.0-10.0) % Eos % (Auto) 4.1 H (0.0-4.0) % Baso % (Auto) 0.7 (0.0-2.0) % Neut # 3.4 (1.8-7.0) K/uL Lymph # 2.7 (1.0-4.3) K/uL Hoke # 0.7 (0.0-0.8) K/uL Eos # 0.3 (0.0-0.7) K/uL Baso # 0.0 (0.0-0.2) K/uL Sodium (132-148) mmol/L Potassium (3.6-5.2) mmol/L Chloride (98-107) mmol/L Carbon Dioxide (22-30) mmol/L Anion Gap (10-20) BUN (9-20) mg/dL Creatinine (0.8-1.5) MG/DL Est GFR ( Amer) Est GFR (Non-Af Amer) POC Glucose (mg/dL) 109 (65-110) mg/dL Random Glucose (75-110) mg/dL Calcium (8.6-10.4) mg/dl Phosphorus (2.5-4.5) mg/dL Magnesium (1.6-2.3) mg/dL Total Bilirubin (0.2-1.3) mg/dL AST (17-59) U/L ALT (21-72) U/L Alkaline Phosphatase (38-126) U/L Total Creatine Kinase 218 H (55-170) U/L CK-MB (Mass) 12.7 H (0.0-3.38) ng/mL Troponin I, Quant 8.4800 H* (0.00-0.120) ng/mL Total Protein (6.3-8.3) g/dL Albumin (3.5-5.0) g/dL Globulin (2.2-3.9) gm/dL Albumin/Globulin Ratio (1.0-2.1) 09/17/16 Range/Units 16:24 WBC (4.8-10.8) K/uL RBC (4.40-5.90) Mil/uL Hgb (12.0-18.0) g/dL Hct (35.0-51.0) % MCV (80.0-94.0) fL MCH (27.0-31.0) pg MCHC (33.0-37.0) g/dL RDW (11.5-14.5) % Plt Count (130-400) K/uL MPV (7.2-11.7) fL Neut % (Auto) (50.0-75.0) % Lymph % (Auto) (20.0-40.0) % Hoke % (Auto) (0.0-10.0) % Eos % (Auto) (0.0-4.0) % Baso % (Auto) (0.0-2.0) % Neut # (1.8-7.0) K/uL Lymph # (1.0-4.3) K/uL Hoke # (0.0-0.8) K/uL Eos # (0.0-0.7) K/uL Baso # (0.0-0.2) K/uL Sodium (132-148) mmol/L Potassium (3.6-5.2) mmol/L Chloride (98-107) mmol/L Carbon Dioxide (22-30) mmol/L Anion Gap (10-20) BUN (9-20) mg/dL Creatinine (0.8-1.5) MG/DL Est GFR ( Amer) Est GFR (Non-Af Amer) POC Glucose (mg/dL) 175 H (65-110) mg/dL Random Glucose (75-110) mg/dL Calcium (8.6-10.4) mg/dl Phosphorus (2.5-4.5) mg/dL Magnesium (1.6-2.3) mg/dL Total Bilirubin (0.2-1.3) mg/dL AST (17-59) U/L ALT (21-72) U/L Alkaline Phosphatase (38-126) U/L Total Creatine Kinase (55-170) U/L CK-MB (Mass) (0.0-3.38) ng/mL Troponin I, Quant (0.00-0.120) ng/mL Total Protein (6.3-8.3) g/dL Albumin (3.5-5.0) g/dL Globulin (2.2-3.9) gm/dL Albumin/Globulin Ratio (1.0-2.1) Laboratory Results - last 24 hr 09/17/16 09/17/16 09/17/16 16:24 20:33 21:16 WBC RBC Hgb Hct MCV MCH MCHC RDW Plt Count MPV Neut % (Auto) Lymph % (Auto) Hoke % (Auto) Eos % (Auto) Baso % (Auto) Neut # Lymph # Hoke # Eos # Baso # Sodium Potassium Chloride Carbon Dioxide Anion Gap BUN Creatinine Est GFR ( Amer) Est GFR (Non-Af Amer) POC Glucose (mg/dL) 175 H 109 Random Glucose Calcium Phosphorus Magnesium Total Bilirubin AST ALT Alkaline Phosphatase Total Creatine Kinase 218 H CK-MB (Mass) 12.7 H Troponin I, Quant 8.4800 H* Total Protein Albumin Globulin Albumin/Globulin Ratio 09/18/16 09/18/16 09/18/16 06:17 06:17 07:23 WBC 7.1 RBC 4.00 L Hgb 11.7 L Hct 36.1 MCV 90.3 MCH 29.3 MCHC 32.5 L RDW 17.2 H Plt Count 210 MPV 8.2 Neut % (Auto) 47.6 L Lymph % (Auto) 37.5 Hoke % (Auto) 10.1 H Eos % (Auto) 4.1 H Baso % (Auto) 0.7 Neut # 3.4 Lymph # 2.7 Hoke # 0.7 Eos # 0.3 Baso # 0.0 Sodium 136 Potassium 4.6 Chloride 106 Carbon Dioxide 21 L Anion Gap 14 BUN 28 H Creatinine 1.6 H Est GFR ( Amer) 50 Est GFR (Non-Af Amer) 41 POC Glucose (mg/dL) 135 H Random Glucose 78 Calcium 8.2 L Phosphorus 3.5 Magnesium 1.7 Total Bilirubin 0.8 AST 41 ALT 17 L Alkaline Phosphatase 42 Total Creatine Kinase CK-MB (Mass) Troponin I, Quant Total Protein 6.0 L Albumin 2.7 L Globulin 3.3 Albumin/Globulin Ratio 0.8 L 06/24/17 11:25 WBC RBC Hgb Hct MCV MCH MCHC RDW Plt Count MPV Neut % (Auto) Lymph % (Auto) Hoke % (Auto) Eos % (Auto) Baso % (Auto) Neut # Lymph # Hoke # Eos # Baso # Sodium Potassium Chloride Carbon Dioxide Anion Gap BUN Creatinine Est GFR ( Amer) Est GFR (Non-Af Amer) POC Glucose (mg/dL) 97 Random Glucose Calcium Phosphorus Magnesium Total Bilirubin AST ALT Alkaline Phosphatase Total Creatine Kinase CK-MB (Mass) Troponin I, Quant Total Protein Albumin Globulin Albumin/Globulin Ratio Fingerstick Blood Sugar Results: 135 Critical Care Progress Note - Nutrition Nutrition: Nutrition Category Date Time Status Heart Healthy Diet [DIET] Diets 09/17/16 Breakfast Active Assessment/Plan (1) NSTEMI (non-ST elevated myocardial infarction) Current Visit: Yes Status: Acute Comment: continue medical management Continue anticoagulation as per appliance service representative Transfer to telemetry (2) Atrial arrhythmia Current Visit: Yes Status: Acute
[2016-09-18] MEDS: Fluticasone-Salmeterol 250-50mcg Diskus INH SCH (19:00)
--- NOTE | 2016-09-18 19:05 | CON ---
DATE: 09/18/2016 HISTORY OF PRESENT ILLNESS: This [id number], a smoker, with a history of hypertension, coronar y artery disease, hyperlipidemia and COPD and past history of DVT, pancreatitis and dementia, now adm itted with increasing weakness, palpitations, lightheadedness and chest pain. He had a history of at rial fibrillation, but this time, he was found to be in atrial flutter and he was started on Cardizem treatment. PHYSICAL EXAMINATION: VITAL SIGNS: Afebrile with blood pressure 122/62, pulse 90, respirations 17, hemoglobin oxygen satur ation 99%. HEENT: Unremarkable. MENTAL STATE: He has has poor memory and poor recall. There has been no history of falls. HEART: Irregular. LUNGS: Diminished breath sounds over the lung bases with occasional rhonchi. ABDOMEN: Soft. EXTREMITIES: Legs: He has a right above-knee amputation. There is no ankle swelling on the left si de. PAST MEDICAL HISTORY: Revealed a history of pancreatitis, COPD, hyperlipidemia, CAD, hypertension, d ementia, arthritis. Current symptoms included cough and shortness of breath. There was no fever or chills, and no hemopt ysis or vomiting, no seizures. FAMILY HISTORY: Unremarkable. SYSTEMIC EXAMINATION: As detailed above. ____ significant. NEUROLOGIC: There is no history of seizures. CARDIO RESPIRATORY: Revealed above symptoms of dyspnea, chest pain and palpitations and cough with n o significant amount of phlegm, no hemoptysis. GASTROINTESTINAL: Revealed no vomiting, but he complains of a little discomfort in abdomen. GENITOURINARY: There is no history of dysuria. At present, he has a catheter in place. LABORATORY DATA: His white count is 7100, hemoglobin 11.7, platelet count 210,000. BUN 28, creatini ne 1.6, potassium 4.6. Sodium 136, glucose 135. Troponin 8.48, ____ 3.5. Chest x-ray shows hyperin flation, right hilar prominence, left costophrenic haze. Will repeat chest x-ray. IMPRESSION: Respiratory insufficiency, exacerbation of chronic obstructive pulmonary disease, menjivar ry artery disease with a non-ST elevation infarct ____ , cardiac arrhythmias, history of pancreatitis and deep venous thrombosis and dementia. RECOMMENDATIONS: Agree with current therapy, bronchodilators, vasodilators, antibiotics. Cardiology followup. DVT prophylaxis and further workup as indicated. Orders have been placed in the computer order system. Kodak Wang MD cc: [id number] TT: 09/18/2016 19:04:51 Confirmation # [id number] Dictation # [id number] [place]
[2016-09-18] MEDS: MethylPREDNISolone 40 mg Vial IV SCH (21:39)
--- NOTE | 2016-09-18 23:23 | CP.PCM.PN ---
Subjective - Date & Time of Evaluation Date of Evaluation: 09/18/16 Time of Evaluation: 21:00 - Subjective Subjective: patient seen and examined in the intensive Case unit. 86 year old male with severe 2 vessel CAD who presents with afib with RVR, NSTEMI. denies any chest pain Seen by cardiology and the plan is medical management Objective - Vital Signs/Intake and Output Vital Signs (last 24 hours): Temp Pulse Resp BP Pulse Ox 97.5 F L 89 22 116/56 L 100 09/18/16 20:00 09/18/16 20:00 09/18/16 20:00 09/18/16 20:00 09/18/16 20:00 Intake and Output: 09/18/16 09/19/16 18:59 06:59 Intake Total 960 Output Total 520 25 Balance 440 -25 - Medications Medications: Current Medications Albuterol Sulfate (Albuterol 0.083% Inhal Blanca (2.5 Mg/3 Ml) Ud) 1.25 mg INH RQ8 [facility] Last Admin: 09/18/16 16:08 Dose: 1.25 mg Aspirin (Ecotrin) 81 mg PO DAILY [facility] Last Admin: 09/18/16 10:57 Dose: 81 mg Carvedilol (Coreg) 12.5 mg PO BID [facility] Last Admin: 09/18/16 17:28 Dose: 12.5 mg Enoxaparin Sodium (Lovenox) 60 mg SC Q12 [facility] Last Admin: 09/18/16 21:39 Dose: 60 mg Diltiazem HCl 125 mg/ Dextrose 125 mls @ 5 mls/hr IV .Q24H ROSY; 5 MG/HR PRN Reason: Protocol Last Admin: 09/18/16 13:35 Dose: Not Given Insulin Aspart (Novolog) 0 unit SC ACHS ROSY PRN Reason: Protocol Last Admin: 09/18/16 22:08 Dose: Not Given Methylprednisolone (Solu-Medrol) 20 mg IV Q12 [facility] Last Admin: 09/18/16 21:39 Dose: 20 mg Pantoprazole Sodium (Protonix Ec Tab) 40 mg PO DAILY [facility] Last Admin: 09/18/16 09:20 Dose: 40 mg Fluticasone/Salmeterol (Advair Diskus 250/50) 1 puff INH RQ12 [facility] - Labs Labs: 09/18/16 06:09/18/16 06:17 PT 26.7 SECONDS (9.7-12.2) H 09/16/16 21:38 INR 2.3 09/16/16 21:38 APTT 36 SECONDS (21-34) H 09/16/16 21:38 - Constitutional Appears: Well - Head Exam Head Exam: NORMAL INSPECTION - Eye Exam Eye Exam: EOMI, Normal appearance, PERRL Pupil Exam: NORMAL ACCOMODATION, PERRL - Cardiovascular Exam Cardiovascular Exam: Irregular Rhythm, +S1, +S2 - GI/Abdominal Exam GI & Abdominal Exam: Soft, Normal Bowel Sounds. absent: Tenderness Assessment and Plan (1) Acute NH Status: Acute (2) Atrial arrhythmia Status: Acute (3) Palpitations Status: Acute (4) CAD (coronary artery disease) Status: Acute (5) Elevated troponin Status: Acute (6) Generalized weakness Status: Acute
[2016-09-19] MEDS: Albuterol 0.083% Inhal Sol (2.5 mg/3 mL) UD INH SCH ×3 (00:12→15:47)
[2016-09-19] MEDS: Fluticasone-Salmeterol 250-50mcg Diskus INH SCH ×2 (07:41→19:57)
[2016-09-19] MEDS: (Novolog) Insulin Aspart, Recombinant 100 u/ml 10 ml vial SC SCH ×4 (09:28→21:43)
[2016-09-19] MEDS: MethylPREDNISolone 40 mg Vial IV SCH ×2 (10:55→21:44)
[2016-09-19] MEDS: Enoxaparin 60 mg Syringe SC SCH ×2 (10:55→21:45)
[2016-09-19] MEDS: Pantoprazole 40 mg EC Tab PO SCH (10:55)
--- NOTE | 2016-09-19 12:30 | CP.PCM.PN ---
Subjective - Date & Time of Evaluation Date of Evaluation: 09/18/16 Time of Evaluation: 13:30 - Subjective Subjective: patient feels well today. he denies chest pain or dyspnea. Objective - Vital Signs/Intake and Output Vital Signs (last 24 hours): Temp Pulse Resp BP Pulse Ox 98.1 F 108 H 18 124/67 93 L 09/19/16 08:00 09/19/16 08:00 09/19/16 08:00 09/19/16 10:54 09/19/16 08:00 Intake and Output: 09/19/16 09/19/16 06:59 18:59 Intake Total 50 Output Total 25 150 Balance -25 -100 - Medications Medications: Current Medications Albuterol Sulfate (Albuterol 0.083% Inhal Blanca (2.5 Mg/3 Ml) Ud) 1.25 mg INH RQ8 [facility] Last Admin: 09/19/16 07:39 Dose: 1.25 mg Aspirin (Ecotrin) 81 mg PO DAILY [facility] Last Admin: 09/19/16 10:54 Dose: 81 mg Carvedilol (Coreg) 12.5 mg PO BID [facility] Last Admin: 09/19/16 10:54 Dose: 12.5 mg Enoxaparin Sodium (Lovenox) 60 mg SC Q12 [facility] Last Admin: 09/19/16 10:55 Dose: 60 mg Diltiazem HCl 125 mg/ Dextrose 125 mls @ 5 mls/hr IV .Q24H ROSY; 5 MG/HR PRN Reason: Protocol Last Admin: 09/19/16 01:04 Dose: Not Given Insulin Aspart (Novolog) 0 unit SC ACHS [facility]Y PRN Reason: Protocol Last Admin: 09/19/16 09:28 Dose: Not Given Methylprednisolone (Solu-Medrol) 20 mg IV Q12 [facility] Last Admin: 09/19/16 10:55 Dose: 20 mg Pantoprazole Sodium (Protonix Ec Tab) 40 mg PO DAILY [facility] Last Admin: 09/19/16 10:55 Dose: 40 mg Fluticasone/Salmeterol (Advair Diskus 250/50) 1 puff INH RQ12 [facility] Last Admin: 09/19/16 07:41 Dose: 1 puff - Labs Labs: 09/18/16 06:17 09/18/16 06:17 PT 26.7 SECONDS (9.7-12.2) H 09/16/16 21:38 INR 2.3 09/16/16 21:38 APTT 36 SECONDS (21-34) H 09/16/16 21:38 - Constitutional Appears: Non-toxic - Head Exam Head Exam: NORMAL INSPECTION - Eye Exam Eye Exam: Normal appearance - ENT Exam ENT Exam: Mucous Membranes Moist - Neck Exam Neck Exam: Full ROM - Respiratory Exam Respiratory Exam: Decreased Breath Sounds - Cardiovascular Exam Cardiovascular Exam: Irregular Rhythm - GI/Abdominal Exam GI & Abdominal Exam: Normal Bowel Sounds - Rectal Exam Rectal Exam: Deferred - Extremities Exam Extremities Exam: Pedal Edema - Back Exam Back Exam: NORMAL INSPECTION - Psychiatric Exam Psychiatric exam: Normal Affect - Skin Skin Exam: Normal Color Assessment and Plan (1) Atrial fibrillation Assessment & Plan: will rate control. Status: Acute (2) NSTEMI (non-ST elevated myocardial infarction) Assessment & Plan: patient has knwon CAD. He is too high risk fro cardiac surgery or stenting. Recommend medical therapy Status: Acute (3) Hypertension Assessment & Plan: blood pressure control Status: Chronic
--- NOTE | 2016-09-19 19:15 | PN ---
DATE: 09/19/2016 The patient is alert, oriented. OBJECTIVE: VITAL SIGNS: Afebrile with blood pressure 124/66, pulse 108, respiration 18, hemoglobin oxygen satur ation of 93%. GENERAL: The patient is not in distress at rest. His weakness has improved, and does not complain o f lightheadedness today. HEART: Regular, no gallop rhythm. LUNGS: Diminished breath sounds over lung bases. Rhonchi decreased. ABDOMEN: Soft. EXTREMITIES: Legs: Right AK and left leg shows no ankle edema. LABORATORY DATA: His blood sugar is 188, his BUN 28 and creatinine 1.6. Kodak Wang MD cc: [id number] TT: 09/19/2016 17:48:29 Confirmation # [id number] Dictation # [id number]
[2016-09-19] MEDS ORDERED: Sodium Chloride 0.9% 500 ML IV ONE (23:36)
[2016-09-20 00:03] LABS: ALBUMIN 2.9 g/dL (3.5-5.0)
[2016-09-20 00:06] LABS: ALB/GLOB RATIO 0.8 (1.0-2.1)
[2016-09-20 00:07] LABS: CALCIUM 7.9 mg/dl (8.6-10.4)
[2016-09-20] MEDS: Albuterol 0.083% Inhal Sol (2.5 mg/3 mL) UD INH SCH ×4 (00:17→23:50)
--- NOTE | 2016-09-20 05:25 | CP.PCM.PN ---
Subjective - Date & Time of Evaluation Date of Evaluation: 09/19/16 Time of Evaluation: 12:20 - Subjective Subjective: patient has no current chest pain or dyspnea Objective - Vital Signs/Intake and Output Vital Signs (last 24 hours): Temp Pulse Resp BP Pulse Ox 97.1 F L 89 22 83/52 L 100 09/20/16 04:00 09/20/16 04:10 09/20/16 04:10 09/20/16 04:10 09/20/16 04:10 Intake and Output: 09/19/16 09/20/16 18:59 06:59 Intake Total 400 Output Total 450 Balance -50 - Medications Medications: Current Medications Albuterol Sulfate (Albuterol 0.083% Inhal Blanca (2.5 Mg/3 Ml) Ud) 1.25 mg INH RQ8 [facility] Last Admin: 09/20/16 00:17 Dose: Not Given Aspirin (Ecotrin) 81 mg PO DAILY [facility] Last Admin: 09/19/16 10:54 Dose: 81 mg Carvedilol (Coreg) 12.5 mg PO BID [facility] Last Admin: 09/19/16 18:30 Dose: 12.5 mg Enoxaparin Sodium (Lovenox) 60 mg SC Q12 [facility] Last Admin: 09/19/16 21:45 Dose: 60 mg Insulin Aspart (Novolog) 0 unit SC ACHS [facility] PRN Reason: Protocol Last Admin: 09/19/16 21:43 Dose: 2 unit Methylprednisolone (Solu-Medrol) 20 mg IV Q12 [facility] Last Admin: 09/19/16 21:44 Dose: 20 mg Pantoprazole Sodium (Protonix Ec Tab) 40 mg PO DAILY [facility] Last Admin: 09/19/16 10:55 Dose: 40 mg Fluticasone/Salmeterol (Advair Diskus 250/50) 1 puff INH RQ12 [facility] Last Admin: 09/19/16 19:57 Dose: 1 puff - Labs Labs: 09/18/16 06:17 09/19/16 23:52 PT 26.7 SECONDS (9.7-12.2) H 09/16/16 21:38 INR 2.3 09/16/16 21:38 APTT 36 SECONDS (21-34) H 09/16/16 21:38 - Constitutional Appears: Non-toxic - Head Exam Head Exam: NORMAL INSPECTION - Eye Exam Eye Exam: Normal appearance - ENT Exam ENT Exam: Mucous Membranes Moist - Neck Exam Neck Exam: Full ROM - Respiratory Exam Respiratory Exam: Decreased Breath Sounds - Cardiovascular Exam Cardiovascular Exam: Irregular Rhythm - GI/Abdominal Exam GI & Abdominal Exam: Normal Bowel Sounds - Rectal Exam Rectal Exam: Deferred - Back Exam Back Exam: NORMAL INSPECTION - Neurological Exam Neurological Exam: Alert - Psychiatric Exam Psychiatric exam: Normal Affect - Skin Skin Exam: Normal Color Assessment and Plan (1) Atrial fibrillation Assessment & Plan: rate control. Status: Acute (2) NSTEMI (non-ST elevated myocardial infarction) Assessment & Plan: known CAD. Patient is too high risk for intervention. recommend conservative therapy Status: Acute (3) Hypertension Assessment & Plan: will monitor Status: Chronic
[2016-09-20] MEDS: (Novolog) Insulin Aspart, Recombinant 100 u/ml 10 ml vial SC SCH ×4 (07:40→21:56)
--- NOTE | 2016-09-20 08:10 | CP.PCM.PN ---
Subjective - Date & Time of Evaluation Date of Evaluation: 09/20/16 Time of Evaluation: 07:40 - Subjective Subjective: patient has no chest pain Objective - Vital Signs/Intake and Output Vital Signs (last 24 hours): Temp Pulse Resp BP Pulse Ox 97.1 F L 89 22 83/52 L 100 09/20/16 04:00 09/20/16 04:10 09/20/16 04:10 09/20/16 04:10 09/20/16 04:10 Intake and Output: 09/20/16 09/20/16 06:59 18:59 Intake Total 805 Output Total 150 Balance 655 - Medications Medications: Current Medications Albuterol Sulfate (Albuterol 0.083% Inhal Blanca (2.5 Mg/3 Ml) Ud) 1.25 mg INH RQ8 [facility] Last Admin: 09/20/16 00:17 Dose: Not Given Aspirin (Ecotrin) 81 mg PO DAILY [facility] Last Admin: 09/19/16 10:54 Dose: 81 mg Carvedilol (Coreg) 12.5 mg PO BID [facility] Last Admin: 09/19/16 18:30 Dose: 12.5 mg Enoxaparin Sodium (Lovenox) 60 mg SC Q12 [facility] Last Admin: 09/19/16 21:45 Dose: 60 mg Insulin Aspart (Novolog) 0 unit SC ACHS [facility] PRN Reason: Protocol Last Admin: 09/20/16 07:40 Dose: 1 unit Methylprednisolone (Solu-Medrol) 20 mg IV Q12 [facility] Last Admin: 09/19/16 21:44 Dose: 20 mg Pantoprazole Sodium (Protonix Ec Tab) 40 mg PO DAILY [facility] Last Admin: 09/19/16 10:55 Dose: 40 mg Fluticasone/Salmeterol (Advair Diskus 250/50) 1 puff INH RQ12 [facility] Last Admin: 09/19/16 19:57 Dose: 1 puff - Labs Labs: 09/18/16 06:17 09/19/16 23:52 PT 26.7 SECONDS (9.7-12.2) H 09/16/16 21:38 INR 2.3 09/16/16 21:38 APTT 36 SECONDS (21-34) H 09/16/16 21:38 - Constitutional Appears: Non-toxic - Head Exam Head Exam: NORMAL INSPECTION - Eye Exam Eye Exam: Normal appearance - ENT Exam ENT Exam: Mucous Membranes Moist - Neck Exam Neck Exam: Full ROM - Respiratory Exam Respiratory Exam: NORMAL BREATHING PATTERN - Cardiovascular Exam Cardiovascular Exam: Irregular Rhythm - GI/Abdominal Exam GI & Abdominal Exam: Normal Bowel Sounds - Rectal Exam Rectal Exam: Deferred - Extremities Exam Extremities Exam: absent: Pedal Edema - Back Exam Back Exam: NORMAL INSPECTION - Neurological Exam Neurological Exam: Alert - Psychiatric Exam Psychiatric exam: Normal Affect - Skin Skin Exam: Normal Color Assessment and Plan (1) Atrial fibrillation Assessment & Plan: rate controlled Status: Acute (2) NSTEMI (non-ST elevated myocardial infarction) Assessment & Plan: no current angina or heart failure Status: Acute (3) Hypertension Assessment & Plan: medical therapy Status: Chronic
[2016-09-20] MEDS: Fluticasone-Salmeterol 250-50mcg Diskus INH SCH ×2 (08:23→21:00)
[2016-09-20] MEDS: Enoxaparin 60 mg Syringe SC SCH ×2 (09:17→21:36)
[2016-09-20] MEDS: MethylPREDNISolone 40 mg Vial IV SCH ×2 (09:18→21:37)
[2016-09-20] MEDS: Pantoprazole 40 mg EC Tab PO SCH (09:18)
[2016-09-20] MEDS: Sodium Chloride 0.9% 1,000 ML IV SCH (09:46)
--- NOTE | 2016-09-20 20:43 | PN ---
DATE: 09/20/2016 SUBJECTIVE: The patient is alert, oriented. PHYSICAL EXAMINATION: VITAL SIGNS: He is afebrile with blood pressure 108/66, pulse 72, and respirations 17. Hemoglobin o xygen saturation of 100%. GENERAL: His dyspnea is improved. He still feels weak. HEART: Regular. There is no gallop rhythm. LUNGS: Diminished breath sounds over lung bases. Rhonchi decreased. ABDOMEN: Soft. EXTREMITIES: Legs, right AKA, and the left, there is no ankle swelling. LABORATORY DATA: His serum sodium 135, potassium 4.7, BUN 26, creatinine 1.4, and blood sugar today is 177. RADIOLOGY: With regard to CT chest, case was discussed with the radiologist and, in view of raised c reatinine, the CT chest with contrast will not be done today, but the patient will be hydrated and me tabolic panel would be repeated, and when creatinine level is reasonable, CT chest with contrast will be done to evaluate prominent right hilar area. IMPRESSION: Respiratory insufficiency, chronic obstructive pulmonary disease, diabetes mellitus, and coronary artery disease with cardiac arrhythmias. The patient was seen by the wire mesh knitter. PLAN: To continue with the current measures, bronchodilators and vasodilators, antiarrhythmics, and hydration with NS, and repeat metabolic panel, and consider CT chest with contrast tomorrow. Kodak Wang MD cc: [id number] TT: 09/20/2016 20:42:39 Confirmation # [id number] Dictation # [id number]
--- NOTE | 2016-09-20 23:01 | CP.PCM.PN ---
Subjective - Date & Time of Evaluation Date of Evaluation: 09/20/16 Time of Evaluation: 19:00 - Subjective Subjective: Pt seen & examined, right now he is in rapid a.Fib with HR of 120, awake and responding appropiately., no fever Objective - Vital Signs/Intake and Output Vital Signs (last 24 hours): Temp Pulse Resp BP Pulse Ox 97.1 F L 70 18 121/61 100 09/20/16 16:00 09/20/16 18:00 09/20/16 18:00 09/20/16 18:00 09/20/16 18:00 Intake and Output: 09/20/16 09/21/16 18:59 06:59 Intake Total 780 Output Total 260 Balance 520 - Medications Medications: Current Medications Albuterol Sulfate (Albuterol 0.083% Inhal Blanca (2.5 Mg/3 Ml) Ud) 1.25 mg INH RQ8 [facility] Last Admin: 09/20/16 16:06 Dose: 1.25 mg Aspirin (Ecotrin) 81 mg PO DAILY [facility] Last Admin: 09/20/16 09:20 Dose: 81 mg Carvedilol (Coreg) 12.5 mg PO BID [facility] Last Admin: 09/20/16 17:09 Dose: 12.5 mg Diltiazem HCl (Cardizem) 30 mg PO Q8 [facility] Last Admin: 09/20/16 21:36 Dose: 30 mg Enoxaparin Sodium (Lovenox) 60 mg SC Q12 [facility] Last Admin: 09/20/16 21:36 Dose: 60 mg Sodium Chloride (Sodium Chloride 0.9%) 1,000 mls @ 30 mls/hr IV .Q24H [facility] Last Admin: 09/20/16 09:46 Dose: 30 mls/hr Insulin Aspart (Novolog) 0 unit SC ACHS [facility] PRN Reason: Protocol Last Admin: 09/20/16 21:56 Dose: Not Given Methylprednisolone (Solu-Medrol) 20 mg IV Q12 [facility] Last Admin: 09/20/16 21:37 Dose: 20 mg Pantoprazole Sodium (Protonix Ec Tab) 40 mg PO DAILY [facility] Last Admin: 09/20/16 09:18 Dose: 40 mg Fluticasone/Salmeterol (Advair Diskus 250/50) 1 puff INH RQ12 [facility] Last Admin: 09/20/16 21:00 Dose: 1 puff - Labs Labs: 09/18/16 06:17 09/19/16 23:52 PT 26.7 SECONDS (9.7-12.2) H 09/16/16 21:38 INR 2.3 09/16/16 21:38 APTT 36 SECONDS (21-34) H 09/16/16 21:38 - Constitutional Appears: No Acute Distress - Head Exam Head Exam: ATRAUMATIC, NORMAL INSPECTION, NORMOCEPHALIC - Eye Exam Eye Exam: EOMI, Normal appearance, PERRL Pupil Exam: NORMAL ACCOMODATION, PERRL - Respiratory Exam Respiratory Exam: Decreased Breath Sounds, Rales, Rhonchi - Cardiovascular Exam Cardiovascular Exam: Irregular Rhythm, +S1, +S2. absent: Murmur - GI/Abdominal Exam GI & Abdominal Exam: Soft, Normal Bowel Sounds. absent: Tenderness Assessment and Plan (1) Acute SD Status: Acute (2) Atrial arrhythmia Assessment & Plan: medical managment B-blockers digoxin if needed Status: Acute (3) Palpitations Status: Acute (4) CAD (coronary artery disease) Status: Acute (5) Elevated troponin Status: Acute (6) Generalized weakness Status: Acute
--- NOTE | 2016-09-20 23:01 | CP.PCM.PN ---
Subjective - Date & Time of Evaluation Date of Evaluation: 09/19/16 Time of Evaluation: 10:00 - Subjective Subjective: Pt seen & evaluated,denies any chest pain or SOB at this time, known CAD. Patient is too high risk for intervention. recommend conservative therapy Objective - Vital Signs/Intake and Output Vital Signs (last 24 hours): Temp Pulse Resp BP Pulse Ox 97.1 F L 70 18 121/61 100 09/20/16 16:00 09/20/16 18:00 09/20/16 18:00 09/20/16 18:00 09/20/16 18:00 Intake and Output: 09/20/16 09/21/16 18:59 06:59 Intake Total 780 Output Total 260 Balance 520 - Medications Medications: Current Medications Albuterol Sulfate (Albuterol 0.083% Inhal Blanca (2.5 Mg/3 Ml) Ud) 1.25 mg INH RQ8 [facility] Last Admin: 09/20/16 16:06 Dose: 1.25 mg Aspirin (Ecotrin) 81 mg PO DAILY [facility] Last Admin: 09/20/16 09:20 Dose: 81 mg Carvedilol (Coreg) 12.5 mg PO BID [facility] Last Admin: 09/20/16 17:09 Dose: 12.5 mg Diltiazem HCl (Cardizem) 30 mg PO Q8 [facility] Last Admin: 09/20/16 21:36 Dose: 30 mg Enoxaparin Sodium (Lovenox) 60 mg SC Q12 [facility] Last Admin: 09/20/16 21:36 Dose: 60 mg Sodium Chloride (Sodium Chloride 0.9%) 1,000 mls @ 30 mls/hr IV .Q24H [facility] Last Admin: 09/20/16 09:46 Dose: 30 mls/hr Insulin Aspart (Novolog) 0 unit SC ACHS [facility] PRN Reason: Protocol Last Admin: 09/20/16 21:56 Dose: Not Given Methylprednisolone (Solu-Medrol) 20 mg IV Q12 [facility] Last Admin: 09/20/16 21:37 Dose: 20 mg Pantoprazole Sodium (Protonix Ec Tab) 40 mg PO DAILY [facility] Last Admin: 09/20/16 09:18 Dose: 40 mg Fluticasone/Salmeterol (Advair Diskus 250/50) 1 puff INH RQ12 [facility] Last Admin: 09/20/16 21:00 Dose: 1 puff - Labs Labs: 09/18/16 06:17 09/19/16 23:52 PT 26.7 SECONDS (9.7-12.2) H 09/16/16 21:38 INR 2.3 09/16/16 21:38 APTT 36 SECONDS (21-34) H 09/16/16 21:38 Assessment and Plan (1) Acute [place] Status: Acute (2) Atrial arrhythmia Status: Acute (3) Palpitations Status: Acute (4) CAD (coronary artery disease) Status: Acute (5) Elevated troponin Status: Acute (6) Generalized weakness Status: Acute
[2016-09-21 06:40] LABS: ALBUMIN 2.9 g/dL (3.5-5.0)
[2016-09-21 06:43] LABS: ALB/GLOB RATIO 0.8 (1.0-2.1)
[2016-09-21 06:44] LABS: CALCIUM 8.2 mg/dl (8.6-10.4)
[2016-09-21] MEDS: (Novolog) Insulin Aspart, Recombinant 100 u/ml 10 ml vial SC SCH ×4 (08:27→22:26)
[2016-09-21] MEDS: Fluticasone-Salmeterol 250-50mcg Diskus INH SCH ×2 (08:51→19:38)
[2016-09-21] MEDS: Albuterol 0.083% Inhal Sol (2.5 mg/3 mL) UD INH SCH (08:51)
--- NOTE | 2016-09-21 09:11 | CP.PCM.PN ---
Subjective - Date & Time of Evaluation Date of Evaluation: 09/21/16 Time of Evaluation: 08:45 - Subjective Subjective: Pt seen and examined, is improving, less tacycardic, less short of breath, less wheezing Objective - Vital Signs/Intake and Output Vital Signs (last 24 hours): Temp Pulse Resp BP Pulse Ox 97.5 F L 72 15 104/68 100 09/21/16 08:00 09/21/16 08:00 09/21/16 08:00 09/21/16 08:00 09/21/16 08:00 Intake and Output: 09/21/16 09/21/16 06:59 18:59 Intake Total 600 Output Total 300 Balance 300 - Medications Medications: Current Medications Albuterol Sulfate (Albuterol 0.083% Inhal Blanca (2.5 Mg/3 Ml) Ud) 1.[address] [facility] Last Admin: 09/21/16 08:51 Dose: 1.25 mg Aspirin (Ecotrin) 81 mg PO DAILY [facility] Last Admin: 09/20/16 09:20 Dose: 81 mg Carvedilol (Coreg) 12.[address] [facility] Last Admin: 09/20/16 17:09 Dose: 12.5 mg Diltiazem HCl (Cardizem) [address] [facility] Last Admin: 09/21/16 06:08 Dose: 30 mg Enoxaparin Sodium (Lovenox) [address] [facility] Last Admin: 09/20/16 21:36 Dose: 60 mg Sodium Chloride (Sodium Chloride 0.9%) 1,000 mls @ 30 mls/hr IV .Q24H [facility] Last Admin: 09/20/16 09:46 Dose: 30 mls/hr Insulin Aspart (Novolog) [address] [facility] PRN Reason: Protocol Last Admin: 09/21/16 08:27 Dose: Not Given Methylprednisolone (Solu-Medrol) [address] [facility] Last Admin: 09/20/16 21:37 Dose: 20 mg Pantoprazole Sodium (Protonix Ec Tab) [address] [facility] Last Admin: 09/20/16 09:18 Dose: 40 mg Fluticasone/Salmeterol (Advair Diskus 250/50) [address] [facility] Last Admin: 09/21/16 08:51 Dose: 1 puff - Labs Labs: 09/18/16 06:17 09/21/16 06:16 PT 26.7 SECONDS (9.7-12.2) H 09/16/16 21:38 INR 2.3 09/16/16 21:38 APTT 36 SECONDS (21-34) H 09/16/16 21:38 - Constitutional Appears: No Acute Distress - Head Exam Head Exam: ATRAUMATIC, NORMAL INSPECTION, NORMOCEPHALIC - Eye Exam Eye Exam: EOMI, Normal appearance, PERRL Pupil Exam: NORMAL ACCOMODATION, PERRL - ENT Exam ENT Exam: Mucous Membranes Moist, Normal Exam - Respiratory Exam Respiratory Exam: Clear to Ausculation Bilateral, NORMAL BREATHING PATTERN - Cardiovascular Exam Cardiovascular Exam: REGULAR RHYTHM, +S1, +S2. absent: Murmur - GI/Abdominal Exam GI & Abdominal Exam: Soft, Normal Bowel Sounds. absent: Tenderness - Neurological Exam Neurological Exam: Alert, Awake, CN II-XII Intact, Normal Gait, Oriented x3 - Psychiatric Exam Psychiatric exam: Normal Affect, Normal Mood - Skin Skin Exam: Dry, Intact, Normal Color, Warm Assessment and Plan (1) Acute MD Status: Acute (2) Atrial arrhythmia Status: Acute (3) Palpitations Status: Acute (4) CAD (coronary artery disease) Status: Acute (5) Elevated troponin Status: Acute (6) Generalized weakness Status: Acute
[2016-09-21] MEDS: MethylPREDNISolone 40 mg Vial IV SCH ×2 (09:30→22:27)
[2016-09-21] MEDS: Pantoprazole 40 mg EC Tab PO SCH (09:31)
[2016-09-21] MEDS: Enoxaparin 60 mg Syringe SC SCH ×2 (09:31→22:23)
[2016-09-21] MEDS: Sodium Chloride 0.9% 1,000 ML IV SCH (10:22)
--- NOTE | 2016-09-21 11:12 | CP.PCM.PN ---
Subjective - Date & Time of Evaluation Date of Evaluation: 09/21/16 Time of Evaluation: 10:00 - Subjective Subjective: patient feel swell. denies chest pain Objective - Vital Signs/Intake and Output Vital Signs (last 24 hours): Temp Pulse Resp BP Pulse Ox 97.5 F L 72 15 105/63 100 09/21/16 08:00 09/21/16 08:00 09/21/16 08:00 09/21/16 09:31 09/21/16 08:00 Intake and Output: 09/21/16 09/21/16 06:59 18:59 Intake Total 600 Output Total 300 Balance 300 - Medications Medications: Current Medications Albuterol Sulfate (Albuterol 0.083% Inhal Blanca (2.5 Mg/3 Ml) Ud) 1.25 mg INH RQ8 [facility] Last Admin: 09/21/16 08:51 Dose: 1.25 mg Aspirin (Ecotrin) 81 mg PO DAILY [facility] Last Admin: 09/21/16 09:31 Dose: 81 mg Carvedilol (Coreg) 12.5 mg PO BID [facility] Last Admin: 09/21/16 09:31 Dose: 12.5 mg Diltiazem HCl (Cardizem) 30 mg PO Q8 [facility] Last Admin: 09/21/16 06:08 Dose: 30 mg Enoxaparin Sodium (Lovenox) 60 mg SC Q12 [facility] Last Admin: 09/21/16 09:31 Dose: 60 mg Sodium Chloride (Sodium Chloride 0.9%) 1,000 mls @ 30 mls/hr IV .Q24H [facility] Last Admin: 09/21/16 10:22 Dose: 30 mls/hr Insulin Aspart (Novolog) 0 unit SC ACHS [facility] PRN Reason: Protocol Last Admin: 09/21/16 08:27 Dose: Not Given Methylprednisolone (Solu-Medrol) 20 mg IV Q12 [facility] Last Admin: 09/21/16 09:30 Dose: 20 mg Pantoprazole Sodium (Protonix Ec Tab) 40 mg PO DAILY [facility] Last Admin: 09/21/16 09:31 Dose: 40 mg Rosuvastatin Calcium (Crestor) 10 mg PO HS [facility] Fluticasone/Salmeterol (Advair Diskus 250/50) 1 puff INH RQ12 [facility] Last Admin: 09/21/16 08:51 Dose: 1 puff - Labs Labs: 09/18/16 06:17 09/21/16 06:16 PT 26.7 SECONDS (9.7-12.2) H 09/16/16 21:38 INR 2.3 09/16/16 21:38 APTT 36 SECONDS (21-34) H 09/16/16 21:38 - Constitutional Appears: Non-toxic - Head Exam Head Exam: NORMAL INSPECTION - Eye Exam Eye Exam: Normal appearance - ENT Exam ENT Exam: Mucous Membranes Moist - Neck Exam Neck Exam: Full ROM - Respiratory Exam Respiratory Exam: Decreased Breath Sounds - Cardiovascular Exam Cardiovascular Exam: Irregular Rhythm - GI/Abdominal Exam GI & Abdominal Exam: Normal Bowel Sounds - Rectal Exam Rectal Exam: Deferred - Extremities Exam Extremities Exam: Pedal Edema - Back Exam Back Exam: NORMAL INSPECTION - Neurological Exam Neurological Exam: Alert - Psychiatric Exam Psychiatric exam: Anxious, Normal Affect - Skin Skin Exam: Normal Color Assessment and Plan (1) Atrial fibrillation Assessment & Plan: rate control Status: Acute (2) NSTEMI (non-ST elevated myocardial infarction) Assessment & Plan: high risk for PCI. continue medical management Status: Acute (3) Hypertension Assessment & Plan: blood pressure control Status: Chronic
[2016-09-21] MEDS ORDERED: Iodixanol 320 MG/ML 100 ML BOTTLE IV ONE (12:05)
--- NOTE | 2016-09-21 13:19 | VASCLAB ---
PROCEDURE: Left Lower Extremity Venous Duplex Exam. HISTORY: Pain in limb PRIORS: 03/2013. TECHNIQUE: Left common femoral, femoral, popliteal and posterior tibial, peroneal and great saphenous veins were evaluated. Flow was assessed with color Doppler, compressibility, assessment of phasic flow and augmentation response. Report prepared by MATT Blair FINDINGS: LEFT: 1. Common Femoral Vein: 1.1. Compressibility - Fully compressible: Thrombus - None : Flow - Phasic: Augmentation -Normal: Reflux - None. 2. Femoral Vein: 2.1. Compressibility - Fully compressible: Thrombus - None: Flow - Phasic: Augmentation -Normal: Reflux - None. 3. Popliteal Vein: 3.1. Compressibility - Fully compressible: Thrombus - None: Flow - Phasic: Augmentation -Normal: Reflux - None. 4. Posterior Tibial Vein: 4.1. Compressibility - Fully compressible: Thrombus - None: Flow - Phasic: Augmentation -Normal: Reflux - None. 5. Peroneal Vein: 5.1. Compressibility - Fully compressible: Thrombus - None: Flow - Phasic: Augmentation -Normal: Reflux - None. 6. Great Saphenous Vein: 6.1. Compressibility - Fully compressible: Thrombus - None: Flow - Phasic: Augmentation - Normal: Reflux - None. OTHER FINDINGS: IMPRESSION: No evidence of deep or superficial vein thrombosis of the left lower extremity with excellent venous flow. Normal valve function noted of the left side. Normal venous flow noted in the right common femoral vein.
--- NOTE | 2016-09-21 14:06 | CT ---
PROCEDURE: CT Chest with contrast HISTORY: Eval Rt hilar prominance left basal haze COMPARISON: CT angio chest 08/25/2016 at [facility] TECHNIQUE: Contiguous axial images were obtained through the chest with intravenous contrast enhancement. Sagittal and coronal reconstructions were performed. IV contrast: 100 mL Visipaque 320 Radiation dose (DLP): 558.91 mGy-cm. This CT exam was performed using one or more of the following dose reduction techniques: Automated exposure control, adjustment of the mA and/or kV according to patient size, and/or use of iterative reconstruction technique. FINDINGS: LUNGS: Centrilobular pulmonary emphysema most prominent in the upper lobes. Nonspecific interlobular septal thickening noted in both lower lobes. Evaluation somewhat limited due to respiratory motion artifact. No pulmonary consolidation. Pleural-based nodule, 1.5 x 2.1 cm, along posterior left pleural surface below the level of the left hilum. Small bullae are seen in the right lower lobe. MEDIASTINUM: Unremarkable thoracic aorta. No aneurysm or dissection. Normal-sized heart. Persistent left superior vena cava noted. Main pulmonary artery unremarkable. No vascular congestion. Mediastinal and right hilar lymphadenopathy noted, essentially unchanged from prior examination in extent. PLEURA: Very small right pleural effusion. No left pleural effusion. BONES: No acute fracture. UPPER ABDOMEN: Cholelithiasis. Stranding around gallbladder suggests possible acute cholecystitis. This represents change from prior examination. Consider correlation with ultrasound examination. OTHER FINDINGS: Bilateral gynecomastia. IMPRESSION: No acute infiltrate. Persistent pleural-based nodule posterior left lower lobe. Very small right pleural effusion. This was not present on prior examination. Centrilobular pulmonary emphysema. Cholelithiasis with pericholecystic stranding. This is only partially included in this examination. This raises suspicion of acute cholecystitis. Please consider correlation with ultrasound examination. Persistent left superior vena cava. Bilateral gynecomastia.
[2016-09-21] MEDS: Albuterol 0.042% Inhal Sol (1.25 mg/3 mL) UD INH SCH ×2 (16:03→23:44)
[2016-09-22] MEDS: Albuterol 0.042% Inhal Sol (1.25 mg/3 mL) UD INH SCH ×2 (07:38→16:03)
[2016-09-22] MEDS: Fluticasone-Salmeterol 250-50mcg Diskus INH SCH ×2 (07:38→19:38)
[2016-09-22] MEDS: (Novolog) Insulin Aspart, Recombinant 100 u/ml 10 ml vial SC SCH ×4 (08:30→22:26)
[2016-09-22] MEDS: Enoxaparin 60 mg Syringe SC SCH ×2 (10:45→23:00)
[2016-09-22] MEDS: Pantoprazole 40 mg EC Tab PO SCH (10:45)
[2016-09-22] MEDS: MethylPREDNISolone 40 mg Vial IV SCH ×2 (10:45→22:30)
[2016-09-22] MEDS: Sodium Chloride 0.9% 1,000 ML IV SCH (10:47)
--- NOTE | 2016-09-22 16:57 | CP.PCM.CON ---
<aJy Busch - Last Filed: 09/22/16 16:52> History of Present Illness - History of Present Illness History of Present Illness: Consult Note for Dr. Urban Reason for consult: EF 20% 86 y/o M with PMH of COPD, CHF, CAD, HLD, dementia, DVT, pancreatitis and HTN presented initially with chest pain. Pt is a poor historian and much of hx was provided from previous medical records. Pt was found to be tachycardic initially. After EKG, pt was found to be in A-fib with RVR. Pt was started on a cardizem drip in the ED. At this time, troponins were elevated along with BNP. Pt was admitted to the ICU with A-fib and NSTEMI. Pt does have cough and mild shortness of breath at this time. PMH: COPD, CHF, CAD, HLD, dementia, DVT, pancreatitis and HTN Surgical Hx: Cardiac catheterization LAD ostium 90% occluded Allergies: Moxifloxacin, Penicillin, vancomycin Medication: See MAR Review of Systems - Review of Systems Systems not reviewed;Unavailable: Dementia, Uncooperative Past Patient History - Infectious Disease Hx of Infectious Diseases: None - Past Medical History & Family History Past Medical History?: Yes - Past Social History Smoking Status: Former Smoker - CARDIAC Hx Cardiac Disorders: Yes (CAD) Hx Congestive Heart Failure: Yes Hx Hypercholesterolemia: Yes Hx Hypertension: Yes - PULMONARY Hx Chronic Obstructive Pulmonary Disease (COPD): Yes - NEUROLOGICAL Hx Neurological Disorder: Yes Hx Dementia: Yes - HEENT Hx HEENT Problems: No - RENAL Hx Chronic Kidney Disease: No - ENDOCRINE/METABOLIC Hx Endocrine Disorders: Yes Hx Diabetes Mellitus Type 1: Yes - HEMATOLOGICAL/ONCOLOGICAL Hx Blood Disorders: No Hx Human Immunodeficiency Virus (HIV): No - INTEGUMENTARY Hx Dermatological Problems: No - MUSCULOSKELETAL/RHEUMATOLOGICAL Hx Musculoskeletal Disorders: Yes Hx Falls: No Hx Unsteady Gait: Yes Other/Comment: Right AKA - GASTROINTESTINAL Hx Gastrointestinal Disorders: Yes Hx Pancreatitis: Yes - GENITOURINARY/GYNECOLOGICAL Hx Genitourinary Disorders: No - PSYCHIATRIC Hx Psychophysiologic Disorder: No Hx Substance Use: No - SURGICAL HISTORY Hx Surgeries: Yes Hx Amputation: Yes (RIGHT ABOVE THE KNEE) - ANESTHESIA Hx Anesthesia: Yes Hx Anesthesia Reactions: No Hx Malignant Hyperthermia: No Has any member of the family had a problem w/ anesthesia?: No Meds Allergies/Adverse Reactions: Allergies Allergy/AdvReac Type Severity Reaction Status Date / Time moxifloxacin HCl Allergy REDNESS Verified 09/16/16 20:39 [From Avelox] Penicillins Allergy RASH Verified 09/16/16 20:39 vancomycin AdvReac RASH Verified 09/16/16 20:39 - Medications Medications: Current Medications Albuterol Sulfate (Albuterol 0.042% Inhal Blanca (1.25mg/3ml) Ud) 1.25 mg INH RQ8 [facility] Last Admin: 09/22/16 16:03 Dose: 1.25 mg Aspirin (Ecotrin) 81 mg PO DAILY [facility] Last Admin: 09/22/16 10:45 Dose: 81 mg Carvedilol (Coreg) 12.5 mg PO BID [facility] Last Admin: 09/22/16 10:44 Dose: 12.5 mg Diltiazem HCl (Cardizem) 30 mg PO Q8 [facility] Last Admin: 09/22/16 06:00 Dose: 30 mg Enoxaparin Sodium (Lovenox) 60 mg SC Q12 [facility] Last Admin: 09/22/16 10:45 Dose: 60 mg Insulin Aspart (Novolog) 0 unit SC ACHS [facility] PRN Reason: Protocol Last Admin: 09/22/16 08:30 Dose: 3 unit Methylprednisolone (Solu-Medrol) 20 mg IV Q12 [facility] Last Admin: 09/22/16 10:45 Dose: 20 mg Pantoprazole Sodium (Protonix Ec Tab) 40 mg PO DAILY [facility] Last Admin: 09/22/16 10:45 Dose: 40 mg Rosuvastatin Calcium (Crestor) 10 mg PO HS [facility] Last Admin: 09/21/16 22:22 Dose: 10 mg Fluticasone/Salmeterol (Advair Diskus 250/50) 1 puff INH RQ12 [facility] Last Admin: 09/22/16 07:38 Dose: 1 puff Physical Exam - Constitutional Appears: Non-toxic, No Acute Distress - Head Exam Head Exam: ATRAUMATIC, NORMAL INSPECTION, NORMOCEPHALIC - ENT Exam ENT Exam: Mucous Membranes Moist - Respiratory Exam Respiratory Exam: Decreased Breath Sounds, NORMAL BREATHING PATTERN - Cardiovascular Exam Cardiovascular Exam: Irregular Rhythm, +S1, +S2 - GI/Abdominal Exam GI & Abdominal Exam: Normal Bowel Sounds, Soft. absent: Tenderness - Extremities Exam Extremities exam: Negative for: calf tenderness - Neurological Exam Neurological exam: Alert - Skin Skin Exam: Intact, Normal Color, Warm Results - Vital Signs Recent Vital Signs: Last Vital Signs Temp 98.5 F 09/22/16 04:00 Pulse 136 H 09/22/16 15:00 Resp 26 H 09/22/16 15:00 BP 124/76 09/22/16 10:44 Pulse Ox 93 L 09/22/16 14:00 - Labs Result Diagrams: 09/18/16 06:17 09/21/16 06:16 Labs: Laboratory Results - last 24 hr 09/21/16 09/22/16 09/22/16 21:11 07:25 11:19 POC Glucose (mg/dL) 164 H 260 H 164 H Assessment & Plan (1) CHF (congestive heart failure) Assessment and Plan: EF 20-25% Pt is a good candidate for Life vest Life vest rep contacted Pt will be fitted for Life vest and be given one upon discharge Status: Acute <Tracie Urban - Last Filed: 09/29/16 15:16> Meds - Medications Medications: Current Medications Aspirin (Ecotrin) 81 mg PO DAILY [facility] Last Admin: 09/29/16 09:55 Dose: 81 mg Carvedilol (Coreg) 12.5 mg PO BID [facility] Last Admin: 09/29/16 09:55 Dose: 12.5 mg Diltiazem HCl (Cardizem) 30 mg PO Q8 [facility] Last Admin: 09/29/16 13:44 Dose: 30 mg Furosemide (Lasix) 20 mg IVP DAILY [facility] Last Admin: 09/29/16 09:56 Dose: 20 mg Insulin Aspart (Novolog) 0 unit SC [facility] PRN Reason: Protocol Last Admin: 09/29/16 12:28 Dose: Not Given Pantoprazole Sodium (Protonix Ec Tab) 40 mg PO DAILY [facility] Last Admin: 09/29/16 09:55 Dose: 40 mg Prednisone (Prednisone Tab) 10 mg PO Q12 [facility] Last Admin: 09/29/16 09:55 Dose: 10 mg Rosuvastatin Calcium (Crestor) 10 mg PO HS [facility] Last Admin: 09/28/16 21:40 Dose: 10 mg Fluticasone/Salmeterol (Advair Diskus 250/50) 1 puff INH RQ12 [facility] Last Admin: 09/29/16 13:06 Dose: 1 puff Results - Vital Signs Recent Vital Signs: Last Vital Signs Temp 98.1 F 09/28/16 23:05 Pulse 70 09/29/16 08:00 Resp 20 09/28/16 23:05 BP 109/67 09/29/16 09:56 Pulse Ox 100 09/28/16 23:05 - Labs Result Diagrams: 09/29/16 12:23 09/29/16 12:23 Labs: Laboratory Results - last 24 hr 09/25/16 09/28/16 09/28/16 16:20 16:51 21:01 WBC RBC Hgb Hct MCV MCH MCHC RDW Plt Count MPV Neut % (Auto) Lymph % (Auto) [place] % (Auto) Eos % (Auto) Baso % (Auto) Neut # Lymph # [place] # Eos # Baso # Neutrophils % (Manual) Band Neutrophils % Lymphocytes % (Manual) Monocytes % (Manual) Platelet Estimate Poikilocytosis (manual Target Cells [place] Cells Sodium Potassium Chloride Carbon Dioxide Anion Gap BUN Creatinine Est GFR ( Amer) Est GFR (Non-Af Amer) POC Glucose (mg/dL) 196 H 121 H 154 H Random Glucose Calcium 09/29/16 09/29/16 09/29/16 06:32 12:06 12:23 WBC 15.6 H D RBC 4.28 L Hgb 12.5 Hct 38.6 MCV 90.3 MCH 29.2 MCHC 32.4 L RDW 18.5 H Plt Count 191 MPV 8.2 Neut % (Auto) 80.1 H Lymph % (Auto) 9.7 L [place] % (Auto) 9.3 Eos % (Auto) 0.6 Baso % (Auto) 0.3 Neut # 12.5 H Lymph # 1.5 [place] # 1.5 H Eos # 0.1 Baso # 0.0 Neutrophils % (Manual) 82 H Band Neutrophils % 2 Lymphocytes % (Manual) 9 L Monocytes % (Manual) 7 Platelet Estimate Normal Poikilocytosis (manual Slight Target Cells Slight [place] Cells Slight Sodium Potassium Chloride Carbon Dioxide Anion Gap BUN Creatinine Est GFR ( Amer) Est GFR (Non-Af Amer) POC Glucose (mg/dL) 111 H 131 H Random Glucose Calcium 09/29/16 12:23 WBC RBC Hgb Hct MCV MCH MCHC RDW Plt Count MPV Neut % (Auto) Lymph % (Auto) [place] % (Auto) Eos % (Auto) Baso % (Auto) Neut # Lymph # [place] # Eos # Baso # Neutrophils % (Manual) Band Neutrophils % Lymphocytes % (Manual) Monocytes % (Manual) Platelet Estimate Poikilocytosis (manual Target Cells [place] Cells Sodium 136 Potassium 4.5 Chloride 103 Carbon Dioxide 23 Anion Gap 15 BUN 45 H Creatinine 1.5 Est GFR ( Amer) 54 Est GFR (Non-Af Amer) 44 POC Glucose (mg/dL) Random Glucose 106 Calcium 8.3 L Attending/Attestation - Attestation I have personally seen and examined this patient.: Yes I have fully participated in the care of the patient.: Yes I have reviewed all pertinent clinical information: Yes Notes (Text): 09/29/16 15:15 watch potassium continue diuresis pt high risk for CABG 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
--- NOTE | 2016-09-22 21:30 | CP.PCM.PN ---
Subjective - Date & Time of Evaluation Date of Evaluation: 09/22/16 Time of Evaluation: 20:00 - Subjective Subjective: Pt is seen by electrophysiology, pt EF is 20-25% Pt is a good candidate for Life vest Life vest rep contacted Pt will be fitted for Life vest and be given one upon discharge Objective - Vital Signs/Intake and Output Vital Signs (last 24 hours): Temp Pulse Resp BP Pulse Ox 98.4 F 30 L 26 H 116/75 93 L 09/22/16 20:00 09/22/16 18:00 09/22/16 15:00 09/22/16 18:05 09/22/16 14:00 Intake and Output: 09/22/16 09/23/16 18:59 06:59 Intake Total 330 Output Total 300 Balance 30 - Medications Medications: Current Medications Albuterol Sulfate (Albuterol 0.042% Inhal Blanca (1.25mg/3ml) Ud) 1.25 mg INH RQ8 [facility] Last Admin: 09/22/16 16:03 Dose: 1.25 mg Aspirin (Ecotrin) 81 mg PO DAILY [facility] Last Admin: 09/22/16 10:45 Dose: 81 mg Carvedilol (Coreg) 12.5 mg PO BID [facility] Last Admin: 09/22/16 18:05 Dose: 12.5 mg Diltiazem HCl (Cardizem) 30 mg PO Q8 [facility] Last Admin: 09/22/16 14:00 Dose: 30 mg Enoxaparin Sodium (Lovenox) 60 mg SC Q12 [facility] Last Admin: 09/22/16 10:45 Dose: 60 mg Insulin Aspart (Novolog) 0 unit SC [facility] PRN Reason: Protocol Last Admin: 09/22/16 18:05 Dose: Not Given Methylprednisolone (Solu-Medrol) 20 mg IV Q12 [facility] Last Admin: 09/22/16 10:45 Dose: 20 mg Pantoprazole Sodium (Protonix Ec Tab) 40 mg PO DAILY [facility] Last Admin: 09/22/16 10:45 Dose: 40 mg Rosuvastatin Calcium (Crestor) 10 mg PO HS [facility] Last Admin: 09/21/16 22:22 Dose: 10 mg Fluticasone/Salmeterol (Advair Diskus 250/50) 1 puff INH RQ12 [facility] Last Admin: 09/22/16 19:38 Dose: 1 puff - Labs Labs: 09/18/16 06:17 09/21/16 06:16 PT 26.7 SECONDS (9.7-12.2) H 09/16/16 21:38 INR 2.3 09/16/16 21:38 APTT 36 SECONDS (21-34) H 09/16/16 21:38 - Constitutional Appears: No Acute Distress - Head Exam Head Exam: ATRAUMATIC, NORMAL INSPECTION, NORMOCEPHALIC - Eye Exam Eye Exam: EOMI, Normal appearance, PERRL Pupil Exam: NORMAL ACCOMODATION, PERRL - ENT Exam ENT Exam: Mucous Membranes Moist, Normal Exam - Respiratory Exam Respiratory Exam: Clear to Ausculation Bilateral, NORMAL BREATHING PATTERN - Cardiovascular Exam Cardiovascular Exam: Tachycardia, Irregular Rhythm, +S1, +S2. absent: Murmur - GI/Abdominal Exam GI & Abdominal Exam: Soft, Normal Bowel Sounds. absent: Tenderness Assessment and Plan (1) Acute [place] Status: Acute (2) Atrial arrhythmia Status: Acute (3) Palpitations Status: Acute (4) CAD (coronary artery disease) Status: Acute (5) Elevated troponin Status: Acute (6) Generalized weakness Status: Acute
[2016-09-23] MEDS: Albuterol 0.042% Inhal Sol (1.25 mg/3 mL) UD INH SCH ×3 (00:23→15:58)
[2016-09-23] MEDS: Fluticasone-Salmeterol 250-50mcg Diskus INH SCH ×2 (07:56→19:39)
[2016-09-23] MEDS: (Novolog) Insulin Aspart, Recombinant 100 u/ml 10 ml vial SC SCH ×4 (08:46→21:51)
--- NOTE | 2016-09-23 10:19 | CP.PCM.PN ---
Subjective - Date & Time of Evaluation Date of Evaluation: 09/23/16 Time of Evaluation: 08:50 - Subjective Subjective: Pt is less short of breath, less cough, HR is down Objective - Vital Signs/Intake and Output Vital Signs (last 24 hours): Temp Pulse Resp BP Pulse Ox 97.7 F 77 20 132/70 91 L 09/23/16 08:00 09/23/16 09:34 09/23/16 09:34 09/23/16 09:34 09/23/16 09:00 Intake and Output: 09/23/16 09/23/16 06:59 18:59 Intake Total 200 350 Output Total 300 Balance -100 350 - Medications Medications: Current Medications Albuterol Sulfate (Albuterol 0.042% Inhal Blanca (1.25mg/3ml) Ud) 1.25 mg INH RQ8 [facility] Last Admin: 09/23/16 07:56 Dose: 1.25 mg Aspirin (Ecotrin) 81 mg PO DAILY [facility] Last Admin: 09/22/16 10:45 Dose: 81 mg Carvedilol (Coreg) 12.5 mg PO BID [facility] Last Admin: 09/22/16 18:05 Dose: 12.5 mg Diltiazem HCl (Cardizem) 30 mg PO Q8 [facility] Last Admin: 09/23/16 06:27 Dose: 30 mg Enoxaparin Sodium (Lovenox) 60 mg SC Q12 [facility] Last Admin: 09/22/16 23:00 Dose: 60 mg Insulin Aspart (Novolog) 0 unit SC ACHS [facility] PRN Reason: Protocol Last Admin: 09/23/16 08:46 Dose: 1 unit Methylprednisolone (Solu-Medrol) 20 mg IV Q12 [facility] Last Admin: 09/22/16 22:30 Dose: 20 mg Pantoprazole Sodium (Protonix Ec Tab) 40 mg PO DAILY [facility] Last Admin: 09/22/16 10:45 Dose: 40 mg Rosuvastatin Calcium (Crestor) 10 mg PO HS [facility] Last Admin: 09/22/16 22:30 Dose: 10 mg Fluticasone/Salmeterol (Advair Diskus 250/50) 1 puff INH RQ12 [facility] Last Admin: 09/23/16 07:56 Dose: 1 puff - Labs Labs: 09/18/16 06:17 09/21/16 06:16 PT 26.7 SECONDS (9.7-12.2) H 09/16/16 21:38 INR 2.3 09/16/16 21:38 APTT 36 SECONDS (21-34) H 09/16/16 21:38 - Constitutional Appears: No Acute Distress - Head Exam Head Exam: ATRAUMATIC, NORMAL INSPECTION, NORMOCEPHALIC - Eye Exam Eye Exam: EOMI, Normal appearance, PERRL Pupil Exam: NORMAL ACCOMODATION, PERRL - Respiratory Exam Respiratory Exam: Decreased Breath Sounds, Rales, Rhonchi - Cardiovascular Exam Cardiovascular Exam: REGULAR RHYTHM, +S1, +S2. absent: Murmur - GI/Abdominal Exam GI & Abdominal Exam: Soft, Normal Bowel Sounds. absent: Tenderness Assessment and Plan (1) Acute [place] Status: Acute (2) Atrial arrhythmia Status: Acute (3) Palpitations Status: Acute (4) CAD (coronary artery disease) Status: Acute (5) Elevated troponin Status: Acute (6) Generalized weakness Status: Acute
--- NOTE | 2016-09-23 10:57 | RAD ---
Chest x-ray single frontal view History: Fluid overload. Comparison: 09/18/2016 Findings: Small bilateral pleural effusions. Venous congestion. Patchy bibasilar airspace opacities. Biapical pleural thickening with upper lobe granulomatous changes. Diffuse increased interstitial lung markings suggestive for edema and or infiltrate. Cardiomegaly. Degenerative changes in the spine and shoulders. Impression: Small bilateral pleural effusions. Venous congestion. Patchy bibasilar airspace opacities. Biapical pleural thickening with upper lobe granulomatous changes. Diffuse increased interstitial lung markings suggestive for edema and or infiltrate. Cardiomegaly.
[2016-09-23] MEDS: MethylPREDNISolone 40 mg Vial IV SCH (11:41)
[2016-09-23] MEDS: Enoxaparin 60 mg Syringe SC SCH ×2 (11:41→21:48)
[2016-09-23] MEDS: Pantoprazole 40 mg EC Tab PO SCH (11:42)
--- NOTE | 2016-09-23 11:49 | US ---
HISTORY: r/o acute cholecystitis / ct questionable COMPARISON: CT of the chest with performed 09/21/16 TECHNIQUE: Sonographic evaluation of the abdomen. FINDINGS: LIVER: Measures 15.5 cm in sagittal dimension. Echogenic liver may be seen in setting of hepatic parenchymal disease or fatty infiltration. No focal hepatic mass identified. The main portal vein appears patent with normal directional flow. No intrahepatic bile duct dilatation. GALLBLADDER: Cholelithiasis. Thickened gallbladder wall measures approximately 6 mm. Pericholecystic edema. Negative sonographic Mallory's sign as assessed by the ham passer. COMMON BILE DUCT: Measures 4 mm. PANCREAS: Not well visualized. RIGHT KIDNEY: Measures 8.3 x 4.2 x 4.3 cm. No obstructing calculus or hydronephrosis identified. LEFT KIDNEY: Measures 9.4 x 5.0 x 5.0 cm. No obstructing calculus or hydronephrosis identified. SPLEEN: Measures approximately 7.7 cm. AORTA: Limited views appear unremarkable. IVC: Limited views appear unremarkable. OTHER FINDINGS: None. IMPRESSION: Cholelithiasis. Thickened gallbladder wall. Pericholecystic edema. Negative sonographic Mallory's sign as assessed by the ham passer. Correlate clinically for possibility of acute cholecystitis. Echogenic liver may be seen in setting of hepatic parenchymal disease or fatty infiltration. 7 mm nonobstructing left lower pole calculus.
--- NOTE | 2016-09-23 12:19 | CP.PCM.PN ---
Subjective - Date & Time of Evaluation Date of Evaluation: 09/23/16 Time of Evaluation: 12:00 - Subjective Subjective: patient has no current chest pain. Objective - Vital Signs/Intake and Output Vital Signs (last 24 hours): Temp Pulse Resp BP Pulse Ox 97.7 F 77 20 123/72 91 L 09/23/16 08:00 09/23/16 09:34 09/23/16 09:34 09/23/16 11:43 09/23/16 09:00 Intake and Output: 09/23/16 09/23/16 06:59 18:59 Intake Total 200 350 Output Total 300 Balance -100 350 - Medications Medications: Current Medications Albuterol Sulfate (Albuterol 0.042% Inhal Blanca (1.25mg/3ml) Ud) 1.25 mg INH RQ8 [facility] Last Admin: 09/23/16 07:56 Dose: 1.25 mg Aspirin (Ecotrin) 81 mg PO DAILY [facility] Last Admin: 09/23/16 11:42 Dose: 81 mg Carvedilol (Coreg) 12.5 mg PO BID [facility] Last Admin: 09/23/16 11:43 Dose: 12.5 mg Diltiazem HCl (Cardizem) 30 mg PO Q8 [facility] Last Admin: 09/23/16 06:27 Dose: 30 mg Enoxaparin Sodium (Lovenox) 60 mg SC Q12 [facility] Last Admin: 09/23/16 11:41 Dose: 60 mg Insulin Aspart (Novolog) 0 unit SC ACHS [facility] PRN Reason: Protocol Last Admin: 09/23/16 08:46 Dose: 1 unit Methylprednisolone (Solu-Medrol) 20 mg IV Q12 [facility] Last Admin: 09/23/16 11:41 Dose: 20 mg Pantoprazole Sodium (Protonix Ec Tab) 40 mg PO DAILY [facility] Last Admin: 09/23/16 11:42 Dose: 40 mg Rosuvastatin Calcium (Crestor) 10 mg PO HS [facility] Last Admin: 09/22/16 22:30 Dose: 10 mg Fluticasone/Salmeterol (Advair Diskus 250/50) 1 puff INH RQ12 [facility] Last Admin: 09/23/16 07:56 Dose: 1 puff - Labs Labs: 09/18/16 06:17 09/21/16 06:16 PT 26.7 SECONDS (9.7-12.2) H 09/16/16 21:38 INR 2.3 09/16/16 21:38 APTT 36 SECONDS (21-34) H 09/16/16 21:38 - Constitutional Appears: Non-toxic - Head Exam Head Exam: NORMAL INSPECTION - Eye Exam Eye Exam: Normal appearance - ENT Exam ENT Exam: Mucous Membranes Moist - Neck Exam Neck Exam: Full ROM - Respiratory Exam Respiratory Exam: NORMAL BREATHING PATTERN - Cardiovascular Exam Cardiovascular Exam: REGULAR RHYTHM - GI/Abdominal Exam GI & Abdominal Exam: Normal Bowel Sounds - Rectal Exam Rectal Exam: Deferred - Extremities Exam Extremities Exam: Normal Inspection - Back Exam Back Exam: NORMAL INSPECTION - Neurological Exam Neurological Exam: Alert - Psychiatric Exam Psychiatric exam: Normal Affect - Skin Skin Exam: Normal Color Assessment and Plan (1) Atrial fibrillation Assessment & Plan: well controlled on current therapy Status: Acute (2) NSTEMI (non-ST elevated myocardial infarction) Assessment & Plan: has known CAD. High risk for PCI givne CAD and LV dysfunction. has stabilized on medical therapy. will continue current management. will place Lifevest. Status: Acute (3) Hypertension Assessment & Plan: blood pressure control. ok for use of calcium channel juanis to assist with rate control for afib. Status: Chronic
--- NOTE | 2016-09-23 12:31 | CP.PCM.PN ---
<Jay Busch - Last Filed: 09/23/16 12:26> Subjective - Date & Time of Evaluation Date of Evaluation: 09/23/16 Time of Evaluation: 12:26 - Subjective Subjective: Progress note for Dr. Urban Pt seen and examined at bedside. No acute events overnight as per nursing. Denies CP, SOB, N/V/D. Objective - Vital Signs/Intake and Output Vital Signs (last 24 hours): Temp Pulse Resp BP Pulse Ox 97.7 F 77 20 123/72 91 L 09/23/16 08:00 09/23/16 09:34 09/23/16 09:34 09/23/16 11:43 09/23/16 09:00 Intake and Output: 09/23/16 09/23/16 06:59 18:59 Intake Total 200 350 Output Total 300 Balance -100 350 - Medications Medications: Current Medications Albuterol Sulfate (Albuterol 0.042% Inhal Blanca (1.25mg/3ml) Ud) 1.25 mg INH RQ8 [facility] Last Admin: 09/23/16 07:56 Dose: 1.25 mg Aspirin (Ecotrin) 81 mg PO DAILY [facility] Last Admin: 09/23/16 11:42 Dose: 81 mg Carvedilol (Coreg) 12.5 mg PO BID [facility] Last Admin: 09/23/16 11:43 Dose: 12.5 mg Diltiazem HCl (Cardizem) 30 mg PO Q8 [facility] Last Admin: 09/23/16 06:27 Dose: 30 mg Enoxaparin Sodium (Lovenox) 60 mg SC Q12 [facility] Last Admin: 09/23/16 11:41 Dose: 60 mg Insulin Aspart (Novolog) 0 unit SC ACHS [facility] PRN Reason: Protocol Last Admin: 09/23/16 08:46 Dose: 1 unit Methylprednisolone (Solu-Medrol) 20 mg IV Q12 [facility] Last Admin: 09/23/16 11:41 Dose: 20 mg Pantoprazole Sodium (Protonix Ec Tab) 40 mg PO DAILY [facility] Last Admin: 09/23/16 11:42 Dose: 40 mg Rosuvastatin Calcium (Crestor) 10 mg PO HS [facility] Last Admin: 09/22/16 22:30 Dose: 10 mg Fluticasone/Salmeterol (Advair Diskus 250/50) 1 puff INH RQ12 [facility] Last Admin: 09/23/16 07:56 Dose: 1 puff - Labs Labs: 09/18/16 06:17 09/21/16 06:16 PT 26.7 SECONDS (9.7-12.2) H 09/16/16 21:38 INR 2.3 09/16/16 21:38 APTT 36 SECONDS (21-34) H 09/16/16 21:38 - Constitutional Appears: Non-toxic, No Acute Distress - Head Exam Head Exam: ATRAUMATIC, NORMAL INSPECTION, NORMOCEPHALIC - Respiratory Exam Respiratory Exam: Clear to Ausculation Bilateral, NORMAL BREATHING PATTERN - Cardiovascular Exam Cardiovascular Exam: RRR, +S1, +S2 - GI/Abdominal Exam GI & Abdominal Exam: Soft, Normal Bowel Sounds. absent: Tenderness - Extremities Exam Extremities Exam: absent: Calf Tenderness, Pedal Edema - Neurological Exam Neurological Exam: Alert, Awake - Skin Skin Exam: Intact, Normal Color, Warm Assessment and Plan (1) CHF (congestive heart failure) Assessment & Plan: Last echo shows EF 20-25% Pt is a good candidate for Life vest Pt will be fitted for Life vest and received upon d/c Status: Acute <Tracie Urban A - Last Filed: 09/29/16 15:13> Objective - Vital Signs/Intake and Output Vital Signs (last 24 hours): Temp Pulse Resp BP Pulse Ox 98.1 F 70 20 109/67 100 09/28/16 23:05 09/29/16 08:00 09/28/16 23:05 09/29/16 09:56 09/28/16 23:05 Intake and Output: 09/29/16 09/29/16 06:59 18:59 Intake Total 220 Output Total 450 1000 Balance -230 -1000 - Medications Medications: Current Medications Aspirin (Ecotrin) 81 mg PO DAILY [facility] Last Admin: 09/29/16 09:55 Dose: 81 mg Carvedilol (Coreg) 12.5 mg PO BID [facility] Last Admin: 09/29/16 09:55 Dose: 12.5 mg Diltiazem HCl (Cardizem) 30 mg PO Q8 [facility] Last Admin: 09/29/16 13:44 Dose: 30 mg Furosemide (Lasix) 20 mg IVP DAILY [facility] Last Admin: 09/29/16 09:56 Dose: 20 mg Insulin Aspart (Novolog) 0 unit SC ACHS [facility] PRN Reason: Protocol Last Admin: 09/29/16 12:28 Dose: Not Given Pantoprazole Sodium (Protonix Ec Tab) 40 mg PO DAILY [facility] Last Admin: 09/29/16 09:55 Dose: 40 mg Prednisone (Prednisone Tab) 10 mg PO Q12 [facility] Last Admin: 09/29/16 09:55 Dose: 10 mg Rosuvastatin Calcium (Crestor) 10 mg PO HS [facility] Last Admin: 09/28/16 21:40 Dose: 10 mg Fluticasone/Salmeterol (Advair Diskus 250/50) 1 puff INH RQ12 [facility] Last Admin: 09/29/16 13:06 Dose: 1 puff - Labs Labs: 09/29/16 12:23 09/29/16 12:23 PT 26.7 SECONDS (9.7-12.2) H 09/16/16 21:38 INR 2.3 09/16/16 21:38 APTT 36 SECONDS (21-34) H 09/16/16 21:38 Attending/Attestation - Attestation I have personally seen and examined this patient.: Yes I have fully participated in the care of the patient.: Yes I have reviewed all pertinent clinical information, including history, physical exam and plan: Yes Notes (Text): 09/29/16 15:12 arranging for vest will probably get vest right before dicharge as per insurance guidelines continue optmal chf management
[2016-09-24] MEDS: Albuterol 0.042% Inhal Sol (1.25 mg/3 mL) UD INH SCH ×3 (01:01→15:53)
--- NOTE | 2016-09-24 02:31 | CP.PCM.PN ---
Subjective - Date & Time of Evaluation Date of Evaluation: 09/24/16 Time of Evaluation: 20:40 - Subjective Subjective: Pt seen & evaluated, is feeling better Objective - Vital Signs/Intake and Output Vital Signs (last 24 hours): Temp Pulse Resp BP Pulse Ox 98.1 F 67 27 H 124/55 L 94 L 09/24/16 00:00 09/24/16 01:00 09/23/16 22:00 09/23/16 21:49 09/23/16 22:00 Intake and Output: 09/23/16 09/24/16 18:59 06:59 Intake Total 700 Balance 700 - Medications Medications: Current Medications Albuterol Sulfate (Albuterol 0.042% Inhal Blanca (1.25mg/3ml) Ud) 1.25 mg INH RQ8 [facility] Last Admin: 09/24/16 01:01 Dose: 1.25 mg Aspirin (Ecotrin) 81 mg PO DAILY [facility] Last Admin: 09/23/16 11:42 Dose: 81 mg Carvedilol (Coreg) 12.5 mg PO BID [facility] Last Admin: 09/23/16 21:49 Dose: 12.5 mg Diltiazem HCl (Cardizem) 30 mg PO Q8 [facility] Last Admin: 09/23/16 21:49 Dose: 30 mg Enoxaparin Sodium (Lovenox) 60 mg SC Q12 [facility] Last Admin: 09/23/16 21:48 Dose: 60 mg Furosemide (Lasix) 20 mg IVP DAILY [facility] Last Admin: 09/23/16 14:45 Dose: 20 mg Insulin Aspart (Novolog) 0 unit SC [facility] PRN Reason: Protocol Last Admin: 09/23/16 21:51 Dose: Not Given Pantoprazole Sodium (Protonix Ec Tab) 40 mg PO DAILY [facility] Last Admin: 09/23/16 11:42 Dose: 40 mg Prednisone (Prednisone Tab) 10 mg PO Q12 [facility] Last Admin: 09/23/16 21:51 Dose: 10 mg Rosuvastatin Calcium (Crestor) 10 mg PO HS [facility] Last Admin: 09/23/16 21:49 Dose: 10 mg Fluticasone/Salmeterol (Advair Diskus 250/50) 1 puff INH RQ12 [facility] Last Admin: 09/23/16 19:39 Dose: 1 puff - Labs Labs: 09/18/16 06:17 09/21/16 06:16 PT 26.7 SECONDS (9.7-12.2) H 09/16/16 21:38 INR 2.3 09/16/16 21:38 APTT 36 SECONDS (21-34) H 09/16/16 21:38 - Constitutional Appears: No Acute Distress - Head Exam Head Exam: ATRAUMATIC, NORMAL INSPECTION, NORMOCEPHALIC - Eye Exam Eye Exam: EOMI, Normal appearance, PERRL Pupil Exam: NORMAL ACCOMODATION, PERRL - Respiratory Exam Respiratory Exam: Decreased Breath Sounds, Rales, Rhonchi - Cardiovascular Exam Cardiovascular Exam: Irregular Rhythm, +S1, +S2, Murmur - GI/Abdominal Exam GI & Abdominal Exam: Soft, Normal Bowel Sounds. absent: Tenderness Assessment and Plan (1) Acute [place] Status: Acute (2) Atrial arrhythmia Status: Acute (3) Palpitations Status: Acute (4) CAD (coronary artery disease) Status: Acute (5) Elevated troponin Status: Acute (6) Generalized weakness Status: Chronic
--- NOTE | 2016-09-24 08:22 | CP.PCM.PN ---
Subjective - Date & Time of Evaluation Date of Evaluation: 09/24/16 Time of Evaluation: 08:00 - Subjective Subjective: no current complaints. Objective - Vital Signs/Intake and Output Vital Signs (last 24 hours): Temp Pulse Resp BP Pulse Ox 98.4 F 69 17 130/80 66 L 09/24/16 04:00 09/24/16 05:34 09/24/16 05:34 09/24/16 05:34 09/24/16 05:34 Intake and Output: 09/24/16 09/24/16 06:59 18:59 Intake Total 500 Output Total 300 Balance 200 - Medications Medications: Current Medications Albuterol Sulfate (Albuterol 0.042% Inhal Blanca (1.25mg/3ml) Ud) 1.25 mg INH RQ8 [facility] Last Admin: 09/24/16 01:01 Dose: 1.25 mg Aspirin (Ecotrin) 81 mg PO DAILY [facility] Last Admin: 09/23/16 11:42 Dose: 81 mg Carvedilol (Coreg) 12.5 mg PO BID [facility] Last Admin: 09/23/16 21:49 Dose: 12.5 mg Diltiazem HCl (Cardizem) 30 mg PO Q8 [facility] Last Admin: 09/24/16 06:17 Dose: 30 mg Enoxaparin Sodium (Lovenox) 60 mg SC Q12 [facility] Last Admin: 09/23/16 21:48 Dose: 60 mg Furosemide (Lasix) 20 mg IVP DAILY [facility] Last Admin: 09/23/16 14:45 Dose: 20 mg Insulin Aspart (Novolog) 0 unit SC ACHS [facility] PRN Reason: Protocol Last Admin: 09/23/16 21:51 Dose: Not Given Pantoprazole Sodium (Protonix Ec Tab) 40 mg PO DAILY [facility] Last Admin: 09/23/16 11:42 Dose: 40 mg Prednisone (Prednisone Tab) 10 mg PO Q12 [facility] Last Admin: 09/23/16 21:51 Dose: 10 mg Rosuvastatin Calcium (Crestor) 10 mg PO HS [facility] Last Admin: 09/23/16 21:49 Dose: 10 mg Fluticasone/Salmeterol (Advair Diskus 250/50) 1 puff INH RQ12 [facility] Last Admin: 09/23/16 19:39 Dose: 1 puff - Labs Labs: 09/18/16 06:17 09/21/16 06:16 PT 26.7 SECONDS (9.7-12.2) H 09/16/16 21:38 INR 2.3 09/16/16 21:38 APTT 36 SECONDS (21-34) H 09/16/16 21:38 - Constitutional Appears: Non-toxic - Head Exam Head Exam: NORMAL INSPECTION - Eye Exam Eye Exam: Normal appearance - ENT Exam ENT Exam: Mucous Membranes Moist - Neck Exam Neck Exam: Full ROM - Respiratory Exam Respiratory Exam: NORMAL BREATHING PATTERN - Cardiovascular Exam Cardiovascular Exam: REGULAR RHYTHM - GI/Abdominal Exam GI & Abdominal Exam: Normal Bowel Sounds - Rectal Exam Rectal Exam: Deferred - Extremities Exam Extremities Exam: Pedal Edema - Back Exam Back Exam: NORMAL INSPECTION - Neurological Exam Neurological Exam: Alert - Psychiatric Exam Psychiatric exam: Normal Affect - Skin Skin Exam: Normal Color Assessment and Plan (1) Atrial fibrillation Assessment & Plan: rate controlled Status: Acute (2) NSTEMI (non-ST elevated myocardial infarction) Assessment & Plan: medical therapy for CAD Status: Acute (3) Hypertension Assessment & Plan: blood pressure control Status: Chronic (4) Chronic systolic dysfunction of left ventricle Assessment & Plan: for Lifevest Status: Acute
[2016-09-24] MEDS: (Novolog) Insulin Aspart, Recombinant 100 u/ml 10 ml vial SC SCH ×4 (08:24→22:00)
[2016-09-24] MEDS: Fluticasone-Salmeterol 250-50mcg Diskus INH SCH ×2 (09:13→19:34)
[2016-09-24] MEDS: Enoxaparin 60 mg Syringe SC SCH ×2 (09:20→22:25)
[2016-09-24] MEDS: Pantoprazole 40 mg EC Tab PO SCH (09:20)
--- NOTE | 2016-09-24 12:41 | CP.PCM.PN ---
<Jay Busch - Last Filed: 09/24/16 12:39> Subjective - Date & Time of Evaluation Date of Evaluation: 09/24/16 Time of Evaluation: 12:39 - Subjective Subjective: Progress Note for Dr. Urban Pt seen and examined at bedside. Pt doing well overnight with no acute events. Denies CP or SOB. Objective - Vital Signs/Intake and Output Vital Signs (last 24 hours): Temp Pulse Resp BP Pulse Ox 97.6 F 85 22 104/69 96 09/24/16 08:00 09/24/16 11:00 09/24/16 11:00 09/24/16 11:00 09/24/16 11:00 Intake and Output: 09/24/16 09/24/16 06:59 18:59 Intake Total 500 300 Output Total 300 335 Balance 200 -35 - Medications Medications: Current Medications Albuterol Sulfate (Albuterol 0.042% Inhal Blanca (1.25mg/3ml) Ud) 1.25 mg INH RQ8 [facility] Last Admin: 09/24/16 09:13 Dose: 1.25 mg Aspirin (Ecotrin) 81 mg PO DAILY [facility] Last Admin: 09/24/16 09:20 Dose: 81 mg Carvedilol (Coreg) 12.5 mg PO BID [facility] Last Admin: 09/24/16 09:20 Dose: 12.5 mg Diltiazem HCl (Cardizem) 30 mg PO Q8 [facility] Last Admin: 09/24/16 06:17 Dose: 30 mg Enoxaparin Sodium (Lovenox) 60 mg SC Q12 [facility] Last Admin: 09/24/16 09:20 Dose: 60 mg Furosemide (Lasix) 20 mg IVP DAILY [facility] Last Admin: 09/24/16 09:18 Dose: 20 mg Insulin Aspart (Novolog) 0 unit SC ACHS [facility] PRN Reason: Protocol Last Admin: 09/24/16 11:50 Dose: 2 unit Pantoprazole Sodium (Protonix Ec Tab) 40 mg PO DAILY [facility] Last Admin: 09/24/16 09:20 Dose: 40 mg Prednisone (Prednisone Tab) 10 mg PO Q12 [facility] Last Admin: 09/24/16 09:20 Dose: 10 mg Rosuvastatin Calcium (Crestor) 10 mg PO HS [facility] Last Admin: 09/23/16 21:49 Dose: 10 mg Fluticasone/Salmeterol (Advair Diskus 250/50) 1 puff INH RQ12 [facility] Last Admin: 09/24/16 09:13 Dose: 1 puff - Labs Labs: 09/18/16 06:17 09/21/16 06:16 PT 26.7 SECONDS (9.7-12.2) H 09/16/16 21:38 INR 2.3 09/16/16 21:38 APTT 36 SECONDS (21-34) H 09/16/16 21:38 - Constitutional Appears: Non-toxic, No Acute Distress - Head Exam Head Exam: ATRAUMATIC, NORMAL INSPECTION, NORMOCEPHALIC - Respiratory Exam Respiratory Exam: Clear to Ausculation Bilateral, NORMAL BREATHING PATTERN - Cardiovascular Exam Cardiovascular Exam: RRR, +S1, +S2 - GI/Abdominal Exam GI & Abdominal Exam: Soft, Normal Bowel Sounds. absent: Tenderness - Extremities Exam Extremities Exam: absent: Calf Tenderness, Pedal Edema - Neurological Exam Neurological Exam: Alert, Awake, Oriented x3 - Skin Skin Exam: Intact, Normal Color, Warm Assessment and Plan (1) CHF (congestive heart failure) Assessment & Plan: Pt candidate for life vest Rep contacted Will be fitted for life vest upon discharge Status: Acute <Tracie Urban - Last Filed: 09/29/16 15:12> Objective - Vital Signs/Intake and Output Vital Signs (last 24 hours): Temp Pulse Resp BP Pulse Ox 98.1 F 70 20 109/67 100 09/28/16 23:05 09/29/16 08:00 09/28/16 23:05 09/29/16 09:56 09/28/16 23:05 Intake and Output: 09/29/16 09/29/16 06:59 18:59 Intake Total 220 Output Total 450 1000 Balance -230 -1000 - Medications Medications: Current Medications Aspirin (Ecotrin) 81 mg PO DAILY [facility] Last Admin: 09/29/16 09:55 Dose: 81 mg Carvedilol (Coreg) 12.5 mg PO BID [facility] Last Admin: 09/29/16 09:55 Dose: 12.5 mg Diltiazem HCl (Cardizem) 30 mg PO Q8 [facility] Last Admin: 09/29/16 13:44 Dose: 30 mg Furosemide (Lasix) 20 mg IVP DAILY [facility] Last Admin: 09/29/16 09:56 Dose: 20 mg Insulin Aspart (Novolog) 0 unit SC ACHS [facility] PRN Reason: Protocol Last Admin: 09/29/16 12:28 Dose: Not Given Pantoprazole Sodium (Protonix Ec Tab) 40 mg PO DAILY [facility] Last Admin: 09/29/16 09:55 Dose: 40 mg Prednisone (Prednisone Tab) 10 mg PO Q12 [facility] Last Admin: 09/29/16 09:55 Dose: 10 mg Rosuvastatin Calcium (Crestor) 10 mg PO HS [facility] Last Admin: 09/28/16 21:40 Dose: 10 mg Fluticasone/Salmeterol (Advair Diskus 250/50) 1 puff INH RQ12 [facility] Last Admin: 09/29/16 13:06 Dose: 1 puff - Labs Labs: 09/29/16 12:23 09/29/16 12:23 PT 26.7 SECONDS (9.7-12.2) H 09/16/16 21:38 INR 2.3 09/16/16 21:38 APTT 36 SECONDS (21-34) H 09/16/16 21:38 Attending/Attestation - Attestation I have personally seen and examined this patient.: Yes I have fully participated in the care of the patient.: Yes I have reviewed all pertinent clinical information, including history, physical exam and plan: Yes Notes (Text): 09/29/16 15:11 High risk pt for revascularization as per interventional cardiology] due to low ef will arrange for vest
[2016-09-25] MEDS: (Novolog) Insulin Aspart, Recombinant 100 u/ml 10 ml vial SC SCH ×3 (07:30→22:55)
[2016-09-25] MEDS: Fluticasone-Salmeterol 250-50mcg Diskus INH SCH ×2 (08:08→19:55)
[2016-09-25] MEDS: Albuterol 0.042% Inhal Sol (1.25 mg/3 mL) UD INH SCH ×3 (08:08→23:31)
--- NOTE | 2016-09-25 10:11 | RAD ---
PROCEDURE: CHEST RADIOGRAPH, 1 VIEW HISTORY: CHF COMPARISON: 09/23/2016. FINDINGS: LUNGS: The lungs are hyperinflated and there is peribronchial thickening with chronic changes in both lungs. No lobar pneumonia. PLEURA: No pneumothorax or pleural fluid seen. CARDIOVASCULAR: There is persistent mild cardiomegaly. OSSEOUS STRUCTURES: No significant abnormalities. VISUALIZED UPPER ABDOMEN: Normal. OTHER FINDINGS: None. IMPRESSION: No active pulmonary disease. COPD.
[2016-09-25] MEDS: Pantoprazole 40 mg EC Tab PO SCH (10:14)
--- NOTE | 2016-09-25 21:57 | CP.PCM.PN ---
Subjective - Date & Time of Evaluation Date of Evaluation: 09/25/16 Time of Evaluation: 14:00 - Subjective Subjective: ON AND OFF SHORT OF BREATH, D/W DR STAPLETON, NO CHEST PAIN, COUGH AND OCC CONGESTION Objective - Vital Signs/Intake and Output Vital Signs (last 24 hours): Temp Pulse Resp BP Pulse Ox 98.5 F 80 20 123/70 100 09/25/16 07:20 09/25/16 07:35 09/25/16 07:20 09/25/16 10:16 09/25/16 07:20 - Medications Medications: Current Medications Albuterol Sulfate (Albuterol 0.042% Inhal Blanca (1.25mg/3ml) Ud) 1.25 mg INH RQ8 [facility] Last Admin: 09/25/16 16:15 Dose: 1.25 mg Aspirin (Ecotrin) 81 mg PO DAILY [facility] Last Admin: 09/25/16 10:14 Dose: 81 mg Carvedilol (Coreg) 12.5 mg PO BID [facility] Last Admin: 09/25/16 10:16 Dose: 12.5 mg Diltiazem HCl (Cardizem) 30 mg PO Q8 [facility] Last Admin: 09/25/16 05:29 Dose: 30 mg Furosemide (Lasix) 20 mg IVP DAILY [facility] Last Admin: 09/25/16 10:16 Dose: 20 mg Insulin Aspart (Novolog) 0 unit SC ACHS [facility] PRN Reason: Protocol Last Admin: 09/25/16 07:30 Dose: Not Given Pantoprazole Sodium (Protonix Ec Tab) 40 mg PO DAILY [facility] Last Admin: 09/25/16 10:14 Dose: 40 mg Prednisone (Prednisone Tab) 10 mg PO Q12 [facility] Last Admin: 09/25/16 10:15 Dose: 10 mg Rosuvastatin Calcium (Crestor) 10 mg PO HS [facility] Last Admin: 09/24/16 22:25 Dose: 10 mg Fluticasone/Salmeterol (Advair Diskus 250/50) 1 puff INH RQ12 [facility] Last Admin: 09/25/16 19:55 Dose: 1 puff - Labs Labs: 09/18/16 06:17 09/21/16 06:16 PT 26.7 SECONDS (9.7-12.2) H 09/16/16 21:38 INR 2.3 09/16/16 21:38 APTT 36 SECONDS (21-34) H 09/16/16 21:38 - Constitutional Appears: Chronically Ill - Head Exam Head Exam: NORMAL INSPECTION, NORMOCEPHALIC - Eye Exam Eye Exam: Normal appearance - ENT Exam ENT Exam: Mucous Membranes Moist - Neck Exam Neck Exam: Normal Inspection - Respiratory Exam Respiratory Exam: Prolonged Expiratory Phase, Rales, Wheezes - Cardiovascular Exam Cardiovascular Exam: Irregular Rhythm, +S1, +S2 (S3) - GI/Abdominal Exam GI & Abdominal Exam: Soft, Normal Bowel Sounds - Rectal Exam Rectal Exam: NORMAL INSPECTION - Back Exam Back Exam: NORMAL INSPECTION - Neurological Exam Neurological Exam: Alert, Awake Assessment and Plan (1) Acute ID Status: Acute (2) Atrial arrhythmia Assessment & Plan: ATRIAL FIBRILLATION, FOR ARRYTHMIA, JACKET AND JOE Status: Acute (3) Palpitations Status: Acute (4) CAD (coronary artery disease) Status: Acute (5) Generalized weakness Status: Chronic
[2016-09-26] MEDS: (Novolog) Insulin Aspart, Recombinant 100 u/ml 10 ml vial SC SCH ×5 (07:30→21:16)
[2016-09-26] MEDS: Albuterol 0.042% Inhal Sol (1.25 mg/3 mL) UD INH SCH ×2 (08:40→16:31)
[2016-09-26] MEDS: Fluticasone-Salmeterol 250-50mcg Diskus INH SCH (08:40)
[2016-09-26] MEDS: Pantoprazole 40 mg EC Tab PO SCH (10:31)
--- NOTE | 2016-09-26 17:16 | CP.PCM.PN ---
Subjective - Date & Time of Evaluation Date of Evaluation: 09/26/16 Time of Evaluation: 12:30 - Subjective Subjective: patient has no complaints. Objective - Vital Signs/Intake and Output Vital Signs (last 24 hours): Temp Pulse Resp BP Pulse Ox 97.8 F 81 20 124/68 98 09/26/16 16:14 09/26/16 16:14 09/26/16 16:14 09/26/16 16:14 09/26/16 16:14 Intake and Output: 09/26/16 09/26/16 06:59 18:59 Intake Total 350 Output Total 1999 Balance -1650 - Medications Medications: Current Medications Aspirin (Ecotrin) 81 mg PO DAILY [facility] Last Admin: 09/26/16 10:31 Dose: 81 mg Carvedilol (Coreg) 12.5 mg PO BID [facility] Last Admin: 09/26/16 10:31 Dose: 12.5 mg Diltiazem HCl (Cardizem) 30 mg PO Q8 [facility] Last Admin: 09/26/16 15:00 Dose: 30 mg Furosemide (Lasix) 20 mg IVP DAILY [facility] Last Admin: 09/26/16 10:32 Dose: 20 mg Insulin Aspart (Novolog) 0 unit SC ACHS [facility] PRN Reason: Protocol Last Admin: 09/26/16 11:30 Dose: Not Given Pantoprazole Sodium (Protonix Ec Tab) 40 mg PO DAILY [facility] Last Admin: 09/26/16 10:31 Dose: 40 mg Prednisone (Prednisone Tab) 10 mg PO Q12 [facility] Last Admin: 09/26/16 10:31 Dose: 10 mg Rosuvastatin Calcium (Crestor) 10 mg PO HS [facility] Last Admin: 09/24/16 22:25 Dose: 10 mg Fluticasone/Salmeterol (Advair Diskus 250/50) 1 puff INH RQ12 [facility] Last Admin: 09/26/16 08:40 Dose: Not Given - Labs Labs: 09/18/16 06:17 09/21/16 06:16 PT 26.7 SECONDS (9.7-12.2) H 09/16/16 21:38 INR 2.3 09/16/16 21:38 APTT 36 SECONDS (21-34) H 09/16/16 21:38 - Constitutional Appears: Non-toxic - Head Exam Head Exam: NORMAL INSPECTION - Eye Exam Eye Exam: Normal appearance - ENT Exam ENT Exam: Mucous Membranes Moist - Neck Exam Neck Exam: Normal Inspection - Respiratory Exam Respiratory Exam: NORMAL BREATHING PATTERN - Cardiovascular Exam Cardiovascular Exam: Irregular Rhythm - GI/Abdominal Exam GI & Abdominal Exam: Normal Bowel Sounds - Rectal Exam Rectal Exam: Deferred - Extremities Exam Extremities Exam: absent: Pedal Edema - Back Exam Back Exam: NORMAL INSPECTION - Neurological Exam Neurological Exam: Alert - Psychiatric Exam Psychiatric exam: Normal Affect - Skin Skin Exam: Normal Color Assessment and Plan (1) Atrial fibrillation Assessment & Plan: rate controlled Status: Acute (2) NSTEMI (non-ST elevated myocardial infarction) Assessment & Plan: medical management for CAD. Status: Acute (3) Hypertension Assessment & Plan: blood pressure is controlled. Status: Chronic (4) Chronic systolic dysfunction of left ventricle Assessment & Plan: awaiting lifevest Status: Acute
--- NOTE | 2016-09-26 23:35 | CP.PCM.PN ---
Subjective - Date & Time of Evaluation Date of Evaluation: 09/26/16 Time of Evaluation: 09:00 - Subjective Subjective: Pt seen and examined at bedside, NAD Objective - Vital Signs/Intake and Output Vital Signs (last 24 hours): Temp Pulse Resp BP Pulse Ox 97.8 F 81 20 124/80 98 09/26/16 16:14 09/26/16 16:14 09/26/16 16:14 09/26/16 17:28 09/26/16 16:14 Intake and Output: 09/26/16 09/27/16 18:59 06:59 Output Total 1300 Balance -1300 - Medications Medications: Current Medications Aspirin (Ecotrin) 81 mg PO DAILY [facility] Last Admin: 09/26/16 10:31 Dose: 81 mg Carvedilol (Coreg) 12.5 mg PO BID [facility] Last Admin: 09/26/16 17:28 Dose: 12.5 mg Diltiazem HCl (Cardizem) 30 mg PO Q8 [facility] Last Admin: 09/26/16 21:26 Dose: 30 mg Furosemide (Lasix) 20 mg IVP DAILY [facility] Last Admin: 09/26/16 10:32 Dose: 20 mg Insulin Aspart (Novolog) 0 unit SC ACHS [facility] PRN Reason: Protocol Last Admin: 09/26/16 21:16 Dose: Not Given Pantoprazole Sodium (Protonix Ec Tab) 40 mg PO DAILY [facility] Last Admin: 09/26/16 10:31 Dose: 40 mg Prednisone (Prednisone Tab) 10 mg PO Q12 [facility] Last Admin: 09/26/16 21:26 Dose: 10 mg Rosuvastatin Calcium (Crestor) 10 mg PO HS [facility] Last Admin: 09/26/16 21:26 Dose: 10 mg Fluticasone/Salmeterol (Advair Diskus 250/50) 1 puff INH RQ12 [facility] Last Admin: 09/26/16 08:40 Dose: Not Given - Labs Labs: 09/18/16 06:17 09/21/16 06:16 PT 26.7 SECONDS (9.7-12.2) H 09/16/16 21:38 INR 2.3 09/16/16 21:38 APTT 36 SECONDS (21-34) H 09/16/16 21:38 Assessment and Plan (1) Acute [place] Status: Acute (2) Atrial arrhythmia Status: Acute (3) Palpitations Status: Acute (4) CAD (coronary artery disease) Status: Acute (5) Generalized weakness Status: Chronic
[2016-09-27] MEDS: (Novolog) Insulin Aspart, Recombinant 100 u/ml 10 ml vial SC SCH ×4 (07:47→21:38)
[2016-09-27] MEDS: Pantoprazole 40 mg EC Tab PO SCH (09:42)
--- NOTE | 2016-09-27 12:07 | CP.PCM.PN ---
<Mathew Whitaker - Last Filed: 09/27/16 12:07> Subjective - Date & Time of Evaluation Date of Evaluation: 09/27/16 Time of Evaluation: 12:05 - Subjective Subjective: Cardiology progress note. Attending: Dr. Urban Pt seen and examined at bedside. No acute distress. No events overnight. No cp, sob, fevers, chills, vomiting, diarrhea. Objective - Vital Signs/Intake and Output Vital Signs (last 24 hours): Temp Pulse Resp BP Pulse Ox 97.7 F 84 20 135/84 100 09/27/16 07:55 09/27/16 07:55 09/27/16 07:55 09/27/16 09:43 09/27/16 07:55 Intake and Output: 09/27/16 09/27/16 06:59 18:59 Output Total 1700 Balance -1700 - Medications Medications: Current Medications Aspirin (Ecotrin) 81 mg PO DAILY [facility] Last Admin: 09/27/16 09:42 Dose: 81 mg Carvedilol (Coreg) 12.5 mg PO BID [facility] Last Admin: 09/27/16 09:42 Dose: 12.5 mg Diltiazem HCl (Cardizem) 30 mg PO Q8 [facility] Last Admin: 09/27/16 06:06 Dose: 30 mg Furosemide (Lasix) 20 mg IVP DAILY [facility] Last Admin: 09/27/16 09:43 Dose: 20 mg Insulin Aspart (Novolog) 0 unit SC ACHS [facility] PRN Reason: Protocol Last Admin: 09/27/16 07:47 Dose: Not Given Pantoprazole Sodium (Protonix Ec Tab) 40 mg PO DAILY [facility] Last Admin: 09/27/16 09:42 Dose: 40 mg Prednisone (Prednisone Tab) 10 mg PO Q12 [facility] Last Admin: 09/27/16 09:42 Dose: 10 mg Rosuvastatin Calcium (Crestor) 10 mg PO HS [facility] Last Admin: 09/26/16 21:26 Dose: 10 mg Fluticasone/Salmeterol (Advair Diskus 250/50) 1 puff INH RQ12 [facility] Last Admin: 09/26/16 08:40 Dose: Not Given - Labs Labs: 09/18/16 06:17 09/21/16 06:16 PT 26.7 SECONDS (9.7-12.2) H 09/16/16 21:38 INR 2.3 09/16/16 21:38 APTT 36 SECONDS (21-34) H 09/16/16 21:38 - Constitutional Appears: Non-toxic, No Acute Distress - Head Exam Head Exam: ATRAUMATIC, NORMAL INSPECTION, NORMOCEPHALIC - Eye Exam Eye Exam: EOMI - ENT Exam ENT Exam: Mucous Membranes Moist - Neck Exam Neck Exam: Full ROM, Normal Inspection - Respiratory Exam Respiratory Exam: NORMAL BREATHING PATTERN. absent: Respiratory Distress - Cardiovascular Exam Cardiovascular Exam: +S1, +S2 - GI/Abdominal Exam GI & Abdominal Exam: Soft, Normal Bowel Sounds. absent: Tenderness - Extremities Exam Extremities Exam: Full ROM, Normal Inspection - Neurological Exam Neurological Exam: Alert, Awake, Oriented x3 - Psychiatric Exam Psychiatric exam: Normal Affect, Normal Mood - Skin Skin Exam: Dry, Intact, Normal Color, Warm Assessment and Plan - Assessment and Plan (Free Text) Assessment: This is an 86 yo male with past medical hx of COPD, CHF, CAD, HLD, dementia, DVT , pancreatitis, HTN presenting with A fib, RVR, NSTEMI 1. CHF Pt candidate for life vest Rep contacted Will be fitted for life vest upon discharge -lasix 20 iv daily -coreg -asa -crestor -ef 20-25 percent 2. A fib RVR -rate controlled -continue cardizem 30 PO q8 hrs [facility] 3. NSTEMI -asa -coreg -crestor discussed with Dr. Urban <Tracie Urban - Last Filed: 09/27/16 16:37> Objective - Vital Signs/Intake and Output Vital Signs (last 24 hours): Temp Pulse Resp BP Pulse Ox 97.7 F 84 20 135/84 100 09/27/16 07:55 09/27/16 07:55 09/27/16 07:55 09/27/16 09:43 09/27/16 07:55 Intake and Output: 09/27/16 09/27/16 06:59 18:59 Intake Total 730 Output Total 1700 825 Balance -1700 -95 - Medications Medications: Current Medications Aspirin (Ecotrin) 81 mg PO DAILY [facility] Last Admin: 09/27/16 09:42 Dose: 81 mg Carvedilol (Coreg) 12.5 mg PO BID [facility] Last Admin: 09/27/16 09:42 Dose: 12.5 mg Diltiazem HCl (Cardizem) 30 mg PO Q8 [facility] Last Admin: 09/27/16 13:15 Dose: 30 mg Furosemide (Lasix) 20 mg IVP DAILY [facility] Last Admin: 09/27/16 09:43 Dose: 20 mg Insulin Aspart (Novolog) 0 unit SC ACHS [facility] PRN Reason: Protocol Last Admin: 09/27/16 13:15 Dose: 1 unit Pantoprazole Sodium (Protonix Ec Tab) 40 mg PO DAILY [facility] Last Admin: 09/27/16 09:42 Dose: 40 mg Prednisone (Prednisone Tab) 10 mg PO Q12 [facility] Last Admin: 09/27/16 09:42 Dose: 10 mg Rosuvastatin Calcium (Crestor) 10 mg PO HS [facility] Last Admin: 09/26/16 21:26 Dose: 10 mg Fluticasone/Salmeterol (Advair Diskus 250/50) 1 puff INH RQ12 [facility] Last Admin: 09/26/16 08:40 Dose: Not Given - Labs Labs: 09/18/16 06:17 09/21/16 06:16 PT 26.7 SECONDS (9.7-12.2) H 09/16/16 21:38 INR 2.3 09/16/16 21:38 APTT 36 SECONDS (21-34) H 09/16/16 21:38 Attending/Attestation - Attestation I have personally seen and examined this patient.: Yes I have fully participated in the care of the patient.: Yes I have reviewed all pertinent clinical information, including history, physical exam and plan: Yes Notes (Text): 09/27/16 16:36 Continue platelet inhib for life vest
[2016-09-27] MEDS: Fluticasone-Salmeterol 250-50mcg Diskus INH SCH (19:48)
--- NOTE | 2016-09-27 23:47 | CP.PCM.PN ---
Subjective - Date & Time of Evaluation Date of Evaluation: 09/27/16 Time of Evaluation: 08:00 - Subjective Subjective: FEELS BETTER, LESS SOB, MORE ALERT , NO FEVER, NO NAUSEA, NO VOMITING Objective - Vital Signs/Intake and Output Vital Signs (last 24 hours): Temp Pulse Resp BP Pulse Ox 97.2 F L 88 20 132/64 100 09/27/16 15:00 09/27/16 15:00 09/27/16 15:00 09/27/16 21:51 09/27/16 15:00 Intake and Output: 09/27/16 09/28/16 18:59 06:59 Intake Total 730 Output Total 825 250 Balance -95 -250 - Medications Medications: Current Medications Aspirin (Ecotrin) 81 mg PO DAILY [facility] Last Admin: 09/27/16 09:42 Dose: 81 mg Carvedilol (Coreg) 12.5 mg PO BID [facility] Last Admin: 09/27/16 21:51 Dose: 12.5 mg Diltiazem HCl (Cardizem) 30 mg PO Q8 [facility] Last Admin: 09/27/16 21:32 Dose: 30 mg Furosemide (Lasix) 20 mg IVP DAILY [facility] Last Admin: 09/27/16 09:43 Dose: 20 mg Insulin Aspart (Novolog) 0 unit SC ACHS [facility] PRN Reason: Protocol Last Admin: 09/27/16 21:38 Dose: Not Given Pantoprazole Sodium (Protonix Ec Tab) 40 mg PO DAILY [facility] Last Admin: 09/27/16 09:42 Dose: 40 mg Prednisone (Prednisone Tab) 10 mg PO Q12 [facility] Last Admin: 09/27/16 21:30 Dose: 10 mg Rosuvastatin Calcium (Crestor) 10 mg PO HS [facility] Last Admin: 09/26/16 21:26 Dose: 10 mg Fluticasone/Salmeterol (Advair Diskus 250/50) 1 puff INH RQ12 [facility] Last Admin: 09/27/16 19:48 Dose: Not Given - Labs Labs: 09/18/16 06:17 09/21/16 06:16 PT 26.7 SECONDS (9.7-12.2) H 09/16/16 21:38 INR 2.3 09/16/16 21:38 APTT 36 SECONDS (21-34) H 09/16/16 21:38 - Constitutional Appears: Non-toxic, No Acute Distress, Chronically Ill - Head Exam Head Exam: ATRAUMATIC, NORMAL INSPECTION, NORMOCEPHALIC - Eye Exam Eye Exam: EOMI, Normal appearance, PERRL Pupil Exam: NORMAL ACCOMODATION - ENT Exam ENT Exam: Mucous Membranes Moist, Normal Exam - Neck Exam Neck Exam: Normal Inspection - Respiratory Exam Respiratory Exam: Decreased Breath Sounds, Clear to Ausculation Bilateral, Prolonged Expiratory Phase - Cardiovascular Exam Cardiovascular Exam: Irregular Rhythm, +S1, +S2, Murmur - GI/Abdominal Exam GI & Abdominal Exam: Firm, Normal Bowel Sounds - Rectal Exam Rectal Exam: NORMAL INSPECTION - Back Exam Back Exam: NORMAL INSPECTION - Neurological Exam Neurological Exam: Alert, Awake Assessment and Plan (1) Acute [place] Status: Acute (2) Atrial arrhythmia Assessment & Plan: ARRYTHMIA VEST IN PROGRESS Status: Acute (3) Palpitations Status: Acute (4) CAD (coronary artery disease) Status: Acute (5) Generalized weakness Status: Chronic
--- NOTE | 2016-09-28 07:08 | CP.PCM.PN ---
Subjective - Date & Time of Evaluation Date of Evaluation: 09/28/16 Time of Evaluation: 07:08 - Subjective Subjective: Pt no cp sob tolerating po Objective - Vital Signs/Intake and Output Vital Signs (last 24 hours): Temp Pulse Resp BP Pulse Ox 97.6 F 98 H 20 131/72 100 09/27/16 23:05 09/28/16 06:30 09/27/16 23:05 09/28/16 06:30 09/27/16 23:05 Intake and Output: 09/28/16 09/28/16 06:59 18:59 Output Total 400 Balance -400 - Medications Medications: Current Medications Aspirin (Ecotrin) 81 mg PO DAILY [facility] Last Admin: 09/27/16 09:42 Dose: 81 mg Carvedilol (Coreg) 12.5 mg PO BID [facility] Last Admin: 09/27/16 21:51 Dose: 12.5 mg Diltiazem HCl (Cardizem) 30 mg PO Q8 [facility] Last Admin: 09/28/16 06:33 Dose: 30 mg Furosemide (Lasix) 20 mg IVP DAILY [facility] Last Admin: 09/27/16 09:43 Dose: 20 mg Insulin Aspart (Novolog) 0 unit SC ACHS [facility] PRN Reason: Protocol Last Admin: 09/27/16 21:38 Dose: Not Given Pantoprazole Sodium (Protonix Ec Tab) 40 mg PO DAILY [facility] Last Admin: 09/27/16 09:42 Dose: 40 mg Prednisone (Prednisone Tab) 10 mg PO Q12 [facility] Last Admin: 09/27/16 21:30 Dose: 10 mg Rosuvastatin Calcium (Crestor) 10 mg PO HS [facility] Last Admin: 09/26/16 21:26 Dose: 10 mg Fluticasone/Salmeterol (Advair Diskus 250/50) 1 puff INH RQ12 [facility] Last Admin: 09/27/16 19:48 Dose: Not Given - Labs Labs: 09/18/16 06:17 09/21/16 06:16 PT 26.7 SECONDS (9.7-12.2) H 09/16/16 21:38 INR 2.3 09/16/16 21:38 APTT 36 SECONDS (21-34) H 09/16/16 21:38 - Constitutional Appears: Chronically Ill - Head Exam Head Exam: NORMOCEPHALIC - Eye Exam Eye Exam: Normal appearance - ENT Exam ENT Exam: Mucous Membranes Moist - Respiratory Exam Respiratory Exam: Clear to Ausculation Bilateral - Cardiovascular Exam Cardiovascular Exam: +S1, +S2, Murmur
[2016-09-28] MEDS: (Novolog) Insulin Aspart, Recombinant 100 u/ml 10 ml vial SC SCH ×4 (07:17→21:57)
[2016-09-28] MEDS: Pantoprazole 40 mg EC Tab PO SCH (09:32)
[2016-09-28] MEDS: Fluticasone-Salmeterol 250-50mcg Diskus INH SCH ×2 (10:27→19:46)
--- NOTE | 2016-09-28 21:49 | CP.PCM.PN ---
Subjective - Date & Time of Evaluation Date of Evaluation: 09/28/16 Time of Evaluation: 20:00 - Subjective Subjective: Pt seen & evaluated at bedside NAD Objective - Vital Signs/Intake and Output Vital Signs (last 24 hours): Temp Pulse Resp BP Pulse Ox 98.1 F 98 H 20 120/80 100 09/28/16 16:00 09/28/16 16:00 09/28/16 16:00 09/28/16 17:33 09/28/16 16:00 Intake and Output: 09/28/16 09/29/16 18:59 06:59 Output Total 1200 Balance -1200 - Medications Medications: Current Medications Aspirin (Ecotrin) 81 mg PO DAILY [facility] Last Admin: 09/28/16 09:32 Dose: 81 mg Carvedilol (Coreg) 12.5 mg PO BID [facility] Last Admin: 09/28/16 17:33 Dose: 12.5 mg Diltiazem HCl (Cardizem) 30 mg PO Q8 [facility] Last Admin: 09/28/16 21:40 Dose: 30 mg Furosemide (Lasix) 20 mg IVP DAILY [facility] Last Admin: 09/28/16 09:31 Dose: 20 mg Insulin Aspart (Novolog) 0 unit SC ACHS [facility] PRN Reason: Protocol Last Admin: 09/28/16 17:33 Dose: Not Given Pantoprazole Sodium (Protonix Ec Tab) 40 mg PO DAILY [facility] Last Admin: 09/28/16 09:32 Dose: 40 mg Prednisone (Prednisone Tab) 10 mg PO Q12 [facility] Last Admin: 09/28/16 21:40 Dose: 10 mg Rosuvastatin Calcium (Crestor) 10 mg PO HS [facility] Last Admin: 09/28/16 21:40 Dose: 10 mg Fluticasone/Salmeterol (Advair Diskus 250/50) 1 puff INH RQ12 [facility] Last Admin: 09/28/16 19:46 Dose: Not Given - Labs Labs: 09/18/16 06:17 09/21/16 06:16 PT 26.7 SECONDS (9.7-12.2) H 09/16/16 21:38 INR 2.3 09/16/16 21:38 APTT 36 SECONDS (21-34) H 09/16/16 21:38 Assessment and Plan (1) Acute DE Status: Acute (2) Atrial arrhythmia Status: Acute (3) Palpitations Status: Acute (4) CAD (coronary artery disease) Status: Acute (5) Generalized weakness Status: Chronic
[2016-09-29] MEDS: (Novolog) Insulin Aspart, Recombinant 100 u/ml 10 ml vial SC SCH ×5 (07:22→21:27)
--- NOTE | 2016-09-29 08:00 | CP.PCM.PN ---
Subjective - Date & Time of Evaluation Date of Evaluation: 09/29/16 Time of Evaluation: 07:55 - Subjective Subjective: patient is unchanged. Objective - Vital Signs/Intake and Output Vital Signs (last 24 hours): Temp Pulse Resp BP Pulse Ox 98.1 F 90 20 112/65 100 09/28/16 23:05 09/29/16 06:20 09/28/16 23:05 09/29/16 06:20 09/28/16 23:05 Intake and Output: 09/29/16 09/29/16 06:59 18:59 Intake Total 220 Output Total 450 Balance -230 - Medications Medications: Current Medications Aspirin (Ecotrin) 81 mg PO DAILY [facility] Last Admin: 09/28/16 09:32 Dose: 81 mg Carvedilol (Coreg) 12.5 mg PO BID [facility] Last Admin: 09/28/16 17:33 Dose: 12.5 mg Diltiazem HCl (Cardizem) 30 mg PO Q8 [facility] Last Admin: 09/29/16 06:20 Dose: 30 mg Furosemide (Lasix) 20 mg IVP DAILY [facility] Last Admin: 09/28/16 09:31 Dose: 20 mg Insulin Aspart (Novolog) 0 unit SC ACHS [facility] PRN Reason: Protocol Last Admin: 09/29/16 07:22 Dose: Not Given Pantoprazole Sodium (Protonix Ec Tab) 40 mg PO DAILY [facility] Last Admin: 09/28/16 09:32 Dose: 40 mg Prednisone (Prednisone Tab) 10 mg PO Q12 [facility] Last Admin: 09/28/16 21:40 Dose: 10 mg Rosuvastatin Calcium (Crestor) 10 mg PO HS [facility] Last Admin: 09/28/16 21:40 Dose: 10 mg Fluticasone/Salmeterol (Advair Diskus 250/50) 1 puff INH RQ12 [facility] Last Admin: 09/28/16 19:46 Dose: Not Given - Labs Labs: 09/18/16 06:17 09/21/16 06:16 PT 26.7 SECONDS (9.7-12.2) H 09/16/16 21:38 INR 2.3 09/16/16 21:38 APTT 36 SECONDS (21-34) H 09/16/16 21:38 - Constitutional Appears: Non-toxic - Head Exam Head Exam: NORMAL INSPECTION - Eye Exam Eye Exam: Normal appearance - ENT Exam ENT Exam: Mucous Membranes Moist - Neck Exam Neck Exam: Full ROM - Respiratory Exam Respiratory Exam: Decreased Breath Sounds - Cardiovascular Exam Cardiovascular Exam: Irregular Rhythm - GI/Abdominal Exam GI & Abdominal Exam: Normal Bowel Sounds - Rectal Exam Rectal Exam: Deferred - Extremities Exam Extremities Exam: Pedal Edema - Back Exam Back Exam: NORMAL INSPECTION - Neurological Exam Neurological Exam: Alert - Psychiatric Exam Psychiatric exam: Normal Affect - Skin Skin Exam: Normal Color Assessment and Plan (1) Atrial fibrillation Assessment & Plan: rate controlled. Status: Acute (2) NSTEMI (non-ST elevated myocardial infarction) Assessment & Plan: medical management for CAD Status: Acute (3) Hypertension Assessment & Plan: blood pressure is controlled Status: Chronic (4) Chronic systolic dysfunction of left ventricle Assessment & Plan: stable and not in heart failure. for LIfevest and JOE Status: Acute
[2016-09-29] MEDS: Pantoprazole 40 mg EC Tab PO SCH (09:55)
--- NOTE | 2016-09-29 12:10 | CP.PCM.PN ---
Subjective - Date & Time of Evaluation Date of Evaluation: 09/29/16 Time of Evaluation: 10:30 - Subjective Subjective: Patient seen and examined at bedside. No acute events overnight and patient had no acute complaints of fever, chest pain, SOB, cough, abd pain, nausea, vomiting , bowel/bladder complaints. Patient awaiting life vest fitting. Objective - Vital Signs/Intake and Output Vital Signs (last 24 hours): Temp Pulse Resp BP Pulse Ox 98.1 F 70 20 109/67 100 09/28/16 23:05 09/29/16 08:00 09/28/16 23:05 09/29/16 09:56 09/28/16 23:05 Intake and Output: 09/29/16 09/29/16 06:59 18:59 Intake Total 220 Output Total 450 Balance -230 - Medications Medications: Current Medications Aspirin (Ecotrin) 81 mg PO DAILY [facility] Last Admin: 09/29/16 09:55 Dose: 81 mg Carvedilol (Coreg) 12.5 mg PO BID [facility] Last Admin: 09/29/16 09:55 Dose: 12.5 mg Diltiazem HCl (Cardizem) 30 mg PO Q8 [facility] Last Admin: 09/29/16 06:20 Dose: 30 mg Furosemide (Lasix) 20 mg IVP DAILY [facility] Last Admin: 09/29/16 09:56 Dose: 20 mg Insulin Aspart (Novolog) 0 unit SC ACHS [facility] PRN Reason: Protocol Last Admin: 09/29/16 07:22 Dose: Not Given Pantoprazole Sodium (Protonix Ec Tab) 40 mg PO DAILY [facility] Last Admin: 09/29/16 09:55 Dose: 40 mg Prednisone (Prednisone Tab) 10 mg PO Q12 [facility] Last Admin: 09/29/16 09:55 Dose: 10 mg Rosuvastatin Calcium (Crestor) 10 mg PO HS [facility] Last Admin: 09/28/16 21:40 Dose: 10 mg Fluticasone/Salmeterol (Advair Diskus 250/50) 1 puff INH RQ12 [facility] Last Admin: 09/28/16 19:46 Dose: Not Given - Labs Labs: 09/18/16 06:17 09/21/16 06:16 PT 26.7 SECONDS (9.7-12.2) H 09/16/16 21:38 INR 2.3 09/16/16 21:38 APTT 36 SECONDS (21-34) H 09/16/16 21:38 - Constitutional Appears: Chronically Ill - Head Exam Head Exam: NORMAL INSPECTION, NORMOCEPHALIC - Eye Exam Eye Exam: EOMI, Normal appearance. absent: Conjunctival injection, Scleral icterus - ENT Exam ENT Exam: Mucous Membranes Moist - Respiratory Exam Respiratory Exam: Clear to Ausculation Bilateral, NORMAL BREATHING PATTERN. absent: Accessory Muscle Use - Cardiovascular Exam Cardiovascular Exam: Irregular Rhythm, +S1, +S2. absent: Bradycardia, Tachycardia - GI/Abdominal Exam GI & Abdominal Exam: Soft, Normal Bowel Sounds. absent: Tenderness - Neurological Exam Neurological Exam: Alert, Awake - Psychiatric Exam Psychiatric exam: Normal Affect, Normal Mood - Skin Skin Exam: Dry, Intact, Normal Color, Warm Assessment and Plan - Assessment and Plan (Free Text) Assessment: 86 y/o M with PMH of COPD, CHF, CAD, HLD, dementia, DVT, pancreatitis and HTN presented 09/17 with chest pain. Cardiology consulted for EF 20% Plan: Congestive heart failure -Echo 09/17: Mild to moderate concentric LVH; LV systolic function severely impaired; EF 20-25%; Global hypokinesis of LV; Flattened septum consistent with RV volume overload; Atrial fibrillation presumed diastolic dysfunction; Trace aortic regurgitation; mitral regurgitation is mild; Moderate pulmonary HTN -Awaiting life vest fitting -spoke to [employer] rep Mcgreogr- awaiting recc -Continue current medical management ASA 81mg po daily Coreg 12.5mg po bid Cardizem 30mg po q8 Lasix 20mg ivp daily Crestor 10mg po hs D/W [employer] pt will need ICD vest for primary prophylaxis against sudden cardiac Pt with dilated cardiomyopathy EF less than 35 percent Will continue to treat chf with optimal CHF management
[2016-09-29 12:46] LABS: BASO % 0.3 % (0.0-2.0); EOS # 0.1 K/uL (0.0-0.7); EOS % 0.6 % (0.0-4.0); HEMOGLOBIN 12.5 g/dL (12.0-18.0); LYMPH # 1.5 K/uL (1.0-4.3); LYMPH % 9.7 % (20.0-40.0); MEAN CELL VOLUME 90.3 fL (80.0-94.0); MEAN CORPUSCULAR HEMOGLOBIN 29.2 pg (27.0-31.0); MEAN CORPUSCULAR HGB CONC 32.4 g/dL (33.0-37.0); MEAN PLATELET VOLUME 8.2 fL (7.2-11.7); MONO # 1.5 K/uL (0.0-0.8); MONO % 9.3 % (0.0-10.0); NEUT # 12.5 K/uL (1.8-7.0); NEUT % 80.1 % (50.0-75.0); NRBC % 0.1 % (0.0-2.0); PLATELET COUNT 191 K/uL (130-400); RBC 4.28 Mil/uL (4.40-5.90); RED CELL DISTRIBUTION WIDTH 18.5 % (11.5-14.5)
[2016-09-29 12:48] LABS: WHITE BLOOD COUNT 15.6 K/uL (4.8-10.8)
[2016-09-29 12:58] LABS: CALCIUM 8.3 mg/dl (8.6-10.4)
[2016-09-29] MEDS: Fluticasone-Salmeterol 250-50mcg Diskus INH SCH ×2 (13:06→19:20)
[2016-09-29 13:13] LABS: BANDS 2 % (0-2); LYMPHOCYTE 9 % (20-40); MONOCYTE 7 % (0-10); NEUTROPHIL 82 % (50-75); PLATELET ESTIMATE NORMAL (NORMAL); TOTAL CELLS COUNTED 100
[2016-09-29 13:14] LABS: BURR CELLS SLIGHT; POIKILOCYTOSIS SLIGHT; TARGET CELLS SLIGHT
--- NOTE | 2016-09-29 22:44 | CP.PCM.PN ---
Subjective - Date & Time of Evaluation Date of Evaluation: 09/29/16 Time of Evaluation: 18:35 - Subjective Subjective: Patient seen and examined at bedside. No acute events overnight and patient had no acute complaints of fever, chest pain, SOB, cough, abd pain, nausea, vomiting , bowel/bladder complaints. Patient awaiting arrythmia jacket life vest fitting. Objective - Vital Signs/Intake and Output Vital Signs (last 24 hours): Temp Pulse Resp BP Pulse Ox 97.5 F L 99 H 20 117/78 97 09/29/16 16:00 09/29/16 16:00 09/29/16 16:00 09/29/16 18:33 09/29/16 16:00 Intake and Output: 09/29/16 09/30/16 18:59 06:59 Output Total 1000 300 Balance -1000 -300 - Medications Medications: Current Medications Aspirin (Ecotrin) 81 mg PO DAILY [facility] Last Admin: 09/29/16 09:55 Dose: 81 mg Carvedilol (Coreg) 12.5 mg PO BID [facility] Last Admin: 09/29/16 18:33 Dose: 12.5 mg Diltiazem HCl (Cardizem) 30 mg PO Q8 [facility] Last Admin: 09/29/16 22:08 Dose: 30 mg Furosemide (Lasix) 20 mg IVP DAILY [facility] Last Admin: 09/29/16 09:56 Dose: 20 mg Insulin Aspart (Novolog) 0 unit SC ACHS [facility] PRN Reason: Protocol Last Admin: 09/29/16 21:27 Dose: Not Given Pantoprazole Sodium (Protonix Ec Tab) 40 mg PO DAILY [facility] Last Admin: 09/29/16 09:55 Dose: 40 mg Prednisone (Prednisone Tab) 10 mg PO Q12 [facility] Last Admin: 09/29/16 22:09 Dose: 10 mg Rosuvastatin Calcium (Crestor) 10 mg PO HS [facility] Last Admin: 09/29/16 22:09 Dose: 10 mg Fluticasone/Salmeterol (Advair Diskus 250/50) 1 puff INH RQ12 [facility] Last Admin: 09/29/16 19:20 Dose: 1 puff - Labs Labs: 09/29/16 12:23 09/29/16 12:23 PT 26.7 SECONDS (9.7-12.2) H 09/16/16 21:38 INR 2.3 09/16/16 21:38 APTT 36 SECONDS (21-34) H 09/16/16 21:38 - Constitutional Appears: No Acute Distress - Head Exam Head Exam: ATRAUMATIC, NORMAL INSPECTION, NORMOCEPHALIC - Eye Exam Eye Exam: EOMI, Normal appearance, PERRL Pupil Exam: NORMAL ACCOMODATION, PERRL - Respiratory Exam Respiratory Exam: Clear to Ausculation Bilateral - Cardiovascular Exam Cardiovascular Exam: Irregular Rhythm, +S1, +S2 - GI/Abdominal Exam GI & Abdominal Exam: Soft, Normal Bowel Sounds. absent: Tenderness Assessment and Plan (1) Acute HI Status: Acute (2) Atrial arrhythmia Status: Acute (3) Palpitations Status: Acute (4) CAD (coronary artery disease) Status: Acute (5) Generalized weakness Status: Chronic
[2016-09-30] MEDS: (Novolog) Insulin Aspart, Recombinant 100 u/ml 10 ml vial SC SCH ×3 (07:19→18:03)
--- NOTE | 2016-09-30 07:20 | CP.PCM.PN ---
Subjective - Date & Time of Evaluation Date of Evaluation: 09/30/16 Time of Evaluation: 07:15 - Subjective Subjective: Patient seen and examined at beside. No acute events overnight as per nursing- VSS and Atrial fibrillation is rate controlled. Patient was resting comfortably , watching TV, and denied any complaints of headache, dizziness, chest pain, palpitations, SOB, abd pain, bowel/bladder complaints. [employer] rep Hosay came yesterday 09/29 and patient was fitted for ICD vest. Objective - Vital Signs/Intake and Output Vital Signs (last 24 hours): Temp Pulse Resp BP Pulse Ox 98.1 F 68 18 117/70 100 09/30/16 05:46 09/30/16 05:46 09/30/16 05:46 09/30/16 05:46 09/30/16 05:46 Intake and Output: 09/30/16 09/30/16 06:59 18:59 Intake Total 100 Output Total 700 Balance -600 - Medications Medications: Current Medications Aspirin (Ecotrin) 81 mg PO DAILY [facility] Last Admin: 09/29/16 09:55 Dose: 81 mg Carvedilol (Coreg) 12.5 mg PO BID [facility] Last Admin: 09/29/16 18:33 Dose: 12.5 mg Diltiazem HCl (Cardizem) 30 mg PO Q8 [facility] Last Admin: 09/30/16 05:39 Dose: 30 mg Furosemide (Lasix) 20 mg IVP DAILY [facility] Last Admin: 09/29/16 09:56 Dose: 20 mg Insulin Aspart (Novolog) 0 unit SC ACHS [facility] PRN Reason: Protocol Last Admin: 09/30/16 07:19 Dose: Not Given Pantoprazole Sodium (Protonix Ec Tab) 40 mg PO DAILY [facility] Last Admin: 09/29/16 09:55 Dose: 40 mg Prednisone (Prednisone Tab) 10 mg PO Q12 [facility] Last Admin: 09/29/16 22:09 Dose: 10 mg Rosuvastatin Calcium (Crestor) 10 mg PO HS [facility] Last Admin: 09/29/16 22:09 Dose: 10 mg Fluticasone/Salmeterol (Advair Diskus 250/50) 1 puff INH RQ12 [facility] Last Admin: 09/29/16 19:20 Dose: 1 puff - Labs Labs: 09/29/16 12:23 09/29/16 12:23 PT 26.7 SECONDS (9.7-12.2) H 09/16/16 21:38 INR 2.3 09/16/16 21:38 APTT 36 SECONDS (21-34) H 09/16/16 21:38 - Constitutional Appears: Chronically Ill - Head Exam Head Exam: NORMAL INSPECTION, NORMOCEPHALIC - Eye Exam Eye Exam: EOMI, Normal appearance - ENT Exam ENT Exam: Mucous Membranes Moist Additional comments: NC in place - Neck Exam Neck Exam: Full ROM - Respiratory Exam Respiratory Exam: Clear to Ausculation Bilateral, NORMAL BREATHING PATTERN. absent: Accessory Muscle Use, Rales, Rhonchi, Wheezes, Respiratory Distress - Cardiovascular Exam Cardiovascular Exam: Irregular Rhythm, +S1, +S2. absent: Bradycardia, Tachycardia - GI/Abdominal Exam GI & Abdominal Exam: Soft, Normal Bowel Sounds. absent: Firm, Guarding, Rigid, Tenderness - Neurological Exam Neurological Exam: Alert, Awake - Psychiatric Exam Psychiatric exam: Normal Affect, Normal Mood - Skin Skin Exam: Dry, Intact, Normal Color, Warm Assessment and Plan - Assessment and Plan (Free Text) Assessment: 86 y/o M with PMH of COPD, CHF, CAD, HLD, dementia, DVT, pancreatitis and HTN presented 09/17 with chest pain. Cardiology consulted for EF <35% Plan: Congestive heart failure -Patient suffers from dilated cardiomyopathy with EF < 35% -Echo 09/17: Mild to moderate concentric LVH; LV systolic function severely impaired; EF 20-25%; Global hypokinesis of LV; Flattened septum consistent with RV volume overload; Atrial fibrillation presumed diastolic dysfunction; Trace aortic regurgitation; mitral regurgitation is mild; Moderate pulmonary HTN -Patient was fit with ICD life vest yesterday 09/29 by Daija Mcgregor- vest takes 24-48 hours to be finalized -Continue optimal CHF medical management ASA 81mg po daily Coreg 12.5mg po bid Cardizem 30mg po q8 Lasix 20mg ivp daily Crestor 10mg po hs Cardiology will sign off at this time Please reconsult if necessary Thank you for the consult.
[2016-09-30] MEDS: Fluticasone-Salmeterol 250-50mcg Diskus INH SCH (07:53)
[2016-09-30 08:21] VITALS: RESP 20
[2016-09-30] MEDS: Pantoprazole 40 mg EC Tab PO SCH (09:34)
--- NOTE | 2016-09-30 13:04 | RAD ---
PROCEDURE: CHEST RADIOGRAPH, 1 VIEW HISTORY: Congestive heart failure. Pneumonia COMPARISON: 09/25/2016 FINDINGS: LUNGS: Diffuse increased interstitial lung markings. Nodular consolidative changes in the mid to lower lung zones bilaterally. This may be better evaluated with chest CT. Small nodular density at the right costophrenic angle. Blunted bilateral costophrenic angles which may represent trace effusions and or pleural thickening. Hyperinflation suggestive for COPD and or emphysematous changes. Mild bilateral hilar prominence. PLEURA: As above. CARDIOVASCULAR: Cardiomegaly. OSSEOUS STRUCTURES: No significant abnormalities. VISUALIZED UPPER ABDOMEN: Normal. OTHER FINDINGS: None. IMPRESSION: Diffuse increased interstitial lung markings. Nodular consolidative changes in the mid to lower lung zones bilaterally. This may be better evaluated with chest CT. Small nodular density at the right costophrenic angle. Blunted bilateral costophrenic angles which may represent trace effusions and or pleural thickening. Hyperinflation suggestive for COPD and or emphysematous changes. Mild bilateral hilar prominence.
--- NOTE | 2016-09-30 14:15 | CP.PCM.PN ---
Subjective - Date & Time of Evaluation Date of Evaluation: 09/30/16 Time of Evaluation: 08:40 - Subjective Subjective: Pt seen and examined, waiting for arrythmia jacket,discharge pt after that Objective - Vital Signs/Intake and Output Vital Signs (last 24 hours): Temp Pulse Resp BP Pulse Ox 97.8 F 69 20 115/67 100 09/30/16 07:15 09/30/16 07:15 09/30/16 07:15 09/30/16 09:34 09/30/16 07:15 Intake and Output: 09/30/16 09/30/16 06:59 18:59 Intake Total 100 Output Total 700 Balance -600 - Medications Medications: Current Medications Aspirin (Ecotrin) 81 mg PO DAILY [facility] Last Admin: 09/30/16 09:34 Dose: 81 mg Carvedilol (Coreg) 12.5 mg PO BID [facility] Last Admin: 09/30/16 09:34 Dose: 12.5 mg Diltiazem HCl (Cardizem) 30 mg PO Q8 [facility] Last Admin: 09/30/16 13:49 Dose: 30 mg Furosemide (Lasix) 20 mg IVP DAILY [facility] Last Admin: 09/30/16 09:34 Dose: 20 mg Insulin Aspart (Novolog) 0 unit SC ACHS [facility] PRN Reason: Protocol Last Admin: 09/30/16 12:27 Dose: 1 unit Pantoprazole Sodium (Protonix Ec Tab) 40 mg PO DAILY [facility] Last Admin: 09/30/16 09:34 Dose: 40 mg Prednisone (Prednisone Tab) 10 mg PO Q12 [facility] Last Admin: 09/30/16 09:34 Dose: 10 mg Rosuvastatin Calcium (Crestor) 10 mg PO HS [facility] Last Admin: 09/29/16 22:09 Dose: 10 mg Fluticasone/Salmeterol (Advair Diskus 250/50) 1 puff INH RQ12 [facility] Last Admin: 09/30/16 07:53 Dose: 1 puff - Labs Labs: 09/29/16 12:23 09/29/16 12:23 PT 26.7 SECONDS (9.7-12.2) H 09/16/16 21:38 INR 2.3 09/16/16 21:38 APTT 36 SECONDS (21-34) H 09/16/16 21:38 Assessment and Plan (1) Acute ID Status: Acute (2) Atrial arrhythmia Status: Acute (3) Palpitations Status: Acute (4) CAD (coronary artery disease) Status: Acute (5) Generalized weakness Status: Chronic
[2016-09-30 15:19] VITALS: TEMP 98; O2SAT 96
--- NOTE | 2016-09-30 15:46 | CP.PCM.PN ---
Subjective - Date & Time of Evaluation Date of Evaluation: 09/30/16 Time of Evaluation: 15:46 - Subjective Subjective: 86 y/o MALE SEEN AND EXAMINED TODAY, PT ADMITTED FOR ACUTE [place], ATRIAL ARRHYTHMIA, PALPITATIONS, CAD, GENERALIZED WEAKNESS. PT DENIES ANY CHEST PAIN, SOB, PALPITATIONS, ABDOMINAL PAIN, N/V, ECHO 09/17- EF <35%, ICD LIFE VEST, CONTINUE CHF MEDICAL MANAGEMENT PER CARDIOLOGY. Objective - Vital Signs/Intake and Output Vital Signs (last 24 hours): Temp Pulse Resp BP Pulse Ox 98 F 94 H 20 131/79 96 09/30/16 15:16 09/30/16 15:16 09/30/16 15:16 09/30/16 15:16 09/30/16 15:16 Intake and Output: 09/30/16 09/30/16 06:59 18:59 Intake Total 100 720 Output Total 700 1000 Balance -600 -280 - Medications Medications: Current Medications Aspirin (Ecotrin) 81 mg PO DAILY [facility] Last Admin: 09/30/16 09:34 Dose: 81 mg Carvedilol (Coreg) 12.5 mg PO BID [facility] Last Admin: 09/30/16 09:34 Dose: 12.5 mg Diltiazem HCl (Cardizem) 30 mg PO Q8 [facility] Last Admin: 09/30/16 13:49 Dose: 30 mg Furosemide (Lasix) 20 mg IVP DAILY [facility] Last Admin: 09/30/16 09:34 Dose: 20 mg Insulin Aspart (Novolog) 0 unit SC ACHS [facility] PRN Reason: Protocol Last Admin: 09/30/16 12:27 Dose: 1 unit Pantoprazole Sodium (Protonix Ec Tab) 40 mg PO DAILY [facility] Last Admin: 09/30/16 09:34 Dose: 40 mg Prednisone (Prednisone Tab) 10 mg PO Q12 [facility] Last Admin: 09/30/16 09:34 Dose: 10 mg Rosuvastatin Calcium (Crestor) 10 mg PO HS [facility] Last Admin: 09/29/16 22:09 Dose: 10 mg Fluticasone/Salmeterol (Advair Diskus 250/50) 1 puff INH RQ12 [facility] Last Admin: 09/30/16 07:53 Dose: 1 puff - Labs Labs: 09/29/16 12:23 09/29/16 12:23 PT 26.7 SECONDS (9.7-12.2) H 09/16/16 21:38 INR 2.3 09/16/16 21:38 APTT 36 SECONDS (21-34) H 09/16/16 21:38
[2016-09-30 16:18] VITALS: PULSE 81
--- NOTE | 2016-09-30 17:03 | PCM.HF ---
Heart Failure Core Measure - Heart Failure Ejection Fraction: 40 % or Greater ALBERT Inhibitor Prescribed: No Beta-Denita Prescribed: Carvedilol Angiotensin II Receptor Denita Prescribed: No AnticoagulationTherapy for Atrial Fibrillation/Atrialflutter: Yes Aldosterone Antagonist Prescribed: No Contraindication/Reason for not providing: EF >45% Hydralazine Nitrate Prescribed: No Contraindication/Reason for not providing: EF >45% Implantable Cardioverter Defibrillator Therapy: No Contraindication/Reason for not providing: RECENT CATH Cardiac Resynchronization Therapy Prescribed: No Contraindication/Reason for not providing: RECENT CATH - Follow up Will be discharged to: [facility]
[2016-09-30 17:40] LABS: BASO % 0.3 % (0.0-2.0); EOS % 0.2 % (0.0-4.0); HEMOGLOBIN 12.7 g/dL (12.0-18.0); LYMPH # 0.9 K/uL (1.0-4.3); LYMPH % 5.9 % (20.0-40.0); MEAN CELL VOLUME 89.8 fL (80.0-94.0); MEAN CORPUSCULAR HEMOGLOBIN 28.8 pg (27.0-31.0); MEAN CORPUSCULAR HGB CONC 32.1 g/dL (33.0-37.0); MEAN PLATELET VOLUME 7.7 fL (7.2-11.7); MONO % 6.7 % (0.0-10.0); NEUT # 13.2 K/uL (1.8-7.0); NEUT % 86.9 % (50.0-75.0); NRBC % 0.1 % (0.0-2.0); PLATELET COUNT 223 K/uL (130-400); RBC 4.42 Mil/uL (4.40-5.90); RED CELL DISTRIBUTION WIDTH 18.2 % (11.5-14.5); WHITE BLOOD COUNT 15.2 K/uL (4.8-10.8)
[2016-09-30 18:06] VITALS: BP 160/70
[2016-09-30 18:27] LABS: BANDS 3 % (0-2); LYMPHOCYTE 7 % (20-40); MONOCYTE 7 % (0-10); NEUTROPHIL 83 % (50-75); PLATELET ESTIMATE NORMAL (NORMAL); TOTAL CELLS COUNTED 100
[2016-09-30 18:29] LABS: ANISOCYTOSIS SLIGHT; HYPERSEGMENTATION PRESENT; LARGE PLATELETS PRESENT; MICROCYTOSIS SLIGHT; POIKILOCYTOSIS SLIGHT; POLYCHROMIC SLIGHT; SMUDGE CELLS PRESENT
== END 2016-09-30 20:30 | DRG 281 ==
LOC: C.ER 20:16 → C.9E 23:58 → C.9I 09-17 02:25 → C.6T 09-24 22:48
PROVIDERS: ADMIT Internal Medicine; ATTEND Internal Medicine
DX: I21.4 Non-ST elevation (NSTEMI) myocardial infarction (principal); I48.91 Unspecified atrial fibrillation; I11.0 Hypertensive heart disease with heart failure; I27.2 Other secondary pulmonary hypertension; J44.1 Chronic obstructive pulmonary disease with (acute) exacerbation; I42.0 Dilated cardiomyopathy; I48.92 Unspecified atrial flutter; E87.5 Hyperkalemia; E78.00 Pure hypercholesterolemia, unspecified; E10.9 Type 1 diabetes mellitus without complications; E78.5 Hyperlipidemia, unspecified; I25.10 Atherosclerotic heart disease of native coronary artery without angina pectoris; F03.90 Unspecified dementia, unspecified severity, without behavioral disturbance, psychotic disturbance, mood disturbance, and anxiety; Z79.01 Long term (current) use of anticoagulants; Z79.4 Long term (current) use of insulin; Z86.718 Personal history of other venous thrombosis and embolism; Z89.611 Acquired absence of right leg above knee

== ENCOUNTER 2016-10-29 20:57 | Inpatient (IN) | payer MEDICARE ==
[2016-10-29 20:57] VITALS: BMI 23.8
--- NOTE | 2016-10-29 21:05 | C.PDOC ---
History Of Present Illness Patient was sent to the ER by [facility]term for increased confusion and loss of appetite. Patient is complaining of mild abdominal pain; denies fever, chills, nausea, or vomiting. Time Seen by Provider: 10/29/16 21:04 Chief Complaint (Nursing): Altered Mental Status History Per: Patient History/Exam Limitations: None Onset/Duration Of Symptoms: Hrs Onset Of Symptoms: Cannot Confirm Onset Current Symptoms Are (Timing): Still Present Usual Baseline: Unknown Exacerbating Factor(s): Unknown Severity: Moderate Pain Scale Rating Of: 4 Recent travel outside of the [place]: No Associated Symptoms: Confused, Not Eating, Not Drinking. denies: Fever, Chills , Vomiting, Diarrhea Past Medical History Reviewed: Historical Data, Nursing Documentation, Vital Signs Vital Signs: Last Vital Signs Temp 97.4 F L 10/29/16 23:24 Pulse 92 H 10/29/16 23:24 Resp 25 H 10/29/16 23:24 BP 125/62 10/29/16 23:24 Pulse Ox 97 10/29/16 23:24 - Medical History PMH: Atrial Fibrillation, CAD, CHF, COPD, Dementia, Depression, Deep Vein Thrombosis, HTN, Hypercholesterolemia, Pancreatitis - [facility] Procedures CENTRAL VENOUS CATHETER PLACEMENT WITH GUIDANCE (03/30/13) EXTRACTION OF LEFT FOOT SKIN, EXTERNAL APPROACH (08/25/16) FLUOROSCOPY OF LEFT HEART USING LOW OSMOLAR CONTRAST (06/08/16) FLUOROSCOPY OF MULT COR ART USING L OSM CONTRAST (06/08/16) HOME MANAGEMENT TREATMENT (08/21/15) INFLUENZA VACCINATION (06/08/13) INSERT INFUSION DEV IN R INT JUGULAR VEIN, PERC (05/18/16) INSERTION OF INFUSION DEV INTO SUP VENA CAVA, PERC APPROACH (05/29/16) INTRODUCE OF OTH THERAP SUBST INTO RESP TRACT, VIA OPENING (05/28/16) INTRODUCTION OF SERUM/TOX/VACCINE INTO MUSCLE, PERC APPROACH (08/15/15) LEFT HEART CARDIAC CATH (03/30/13) LOCAL EXCIS BREAST LES (03/30/13) LT HEART ANGIOCARDIOGRAM (03/30/13) MEASURE OF CARDIAC SAMPL & PRESSURE, L HEART, PERC APPROACH (06/08/16) ROM & JT MOBILITY TREATMENT OF MUSCULOSK LOW BACK/LE (08/21/15) ROM & JT MOBILITY TREATMENT OF MUSCULOSK UP BACK/UE (08/21/15) VACCINATION NEC (04/04/14) VENOUS CATHETERIZATION NEC (11/22/14) Family History: States: No Known Family Hx - Social History Hx Tobacco Use: Yes Hx Alcohol Use: No Hx Substance Use: No - Immunization History Hx Tetanus Toxoid Vaccination: No Hx Influenza Vaccination: No Hx Pneumococcal Vaccination: No Review Of Systems Constitutional: Negative for: Fever, Chills Gastrointestinal: Positive for: Abdominal Pain. Negative for: Nausea, Vomiting Neurological: Positive for: Confusion Physical Exam - Physical Exam Appears: Non-toxic, Other (Awake, Alert) Skin: Warm, Dry Head: Normacephalic Eye(s): bilateral: Normal Inspection Oral Mucosa: Dry Lips: Other (Dry) Teeth: Other (Poor dentition) Neck: Trachea Midline, Supple Chest: Symmetrical, No Tenderness, Other (Lifevest in place) Cardiovascular: Rhythm Regular, No Murmur Respiratory: No Rales, Rhonchi (Scattered), No Wheezing Gastrointestinal/Abdominal: Soft, Tenderness (Mild diffuse), Distention, No Guarding, No Rebound, Other (Tympanic to percussion) Back: No CVA Tenderness Male Genital: Other (Indwelling folly in place) Extremity: No Tenderness, Other (Right AKA) Extremity: Left: Normal Color And Temperature Neurological/Psych: Oriented x3, Normal Speech, Other (Oriented x2) Gait: Unable To Assess ED Course And Treatment - Laboratory Results Result Diagrams: 10/29/16 21:55 10/29/16 21:56 ECG: Interpreted By Me, Viewed By Me ECG Rhythm: Atrial Flutter (89), Nonspecific Changes O2 Sat by Pulse Oximetry: 100 Pulse Ox Interpretation: Normal - Radiology CXR: Interpreted by Me, Viewed By Me CXR Interpretation: Yes: Other (top nl heart, life vest in place, rll infiltrate ) Progress Note: Blood work, CT head, CXR, and urinalysis ordered. IV fluids and zithromax administered. Disposition Discussed With : Faustino Pimentel Comment: accepted the pt on his service and took over the care at 11:36 PM Doctor Will See Patient In The: Hospital Counseled Patient/Family Regarding: Studies Performed, Diagnosis - Disposition Disposition: HOSPITALIZED Disposition Time: 21:05 Condition: GUARDED - Clinical Impression Clinical Impression: Atrial arrhythmia, UTI (urinary tract infection), Renal insufficiency, Pneumonia - Scribe Statement The provider has reviewed the documentation as recorded by the Scribe Lemuel Scott All medical record entries made by the Scribe were at my direction and personally dictated by me. I have reviewed the chart and agree that the record accurately reflects my personal performance of the history, physical exam, medical decision making, and the department course for this patient. I have also personally directed, reviewed, and agree with the discharge instructions and disposition. Decision To Admit - Pt Status Changed To: Hospital Disposition Of: Inpatient - Admit Certification Admit to Inpatient:: After my assessment, the patient will require hospitalization for at least two midnights. This is because of the severity of symptoms shown, intensity of services needed, and/or the medical risk in this patient being treated as an outpatient. - InPatient: Physician Admission Certification:: After my assessment, the patient will require hospitalization for at least two midnights. This is because of the severity of symptoms shown, intensity of services needed, and/or the medical risk in this patient being treated as an outpatient. - . Bed Request Type: Telemetry Admitting Physician: Faustino Pimentel Patient Diagnosis: Atrial arrhythmia, UTI (urinary tract infection), Renal insufficiency, Pneumonia
[2016-10-29] MEDS ORDERED: Sodium Chloride 0.9% 1,000 ML IV SCH (21:45)
[2016-10-29 22:06] LABS: BASO % 0.4 % (0.0-2.0); EOS % 0.3 % (0.0-4.0); HEMOGLOBIN 12.9 g/dL (12.0-18.0); LYMPH # 1.3 K/uL (1.0-4.3); LYMPH % 9.8 % (20.0-40.0); MEAN CORPUSCULAR HEMOGLOBIN 30.4 pg (27.0-31.0); MEAN CORPUSCULAR HGB CONC 32.4 g/dL (33.0-37.0); MEAN PLATELET VOLUME 7.7 fL (7.2-11.7); MONO # 0.7 K/uL (0.0-0.8); MONO % 5.5 % (0.0-10.0); NEUT # 11.1 K/uL (1.8-7.0); NRBC % 0.3 % (0.0-2.0); PLATELET COUNT 297 K/uL (130-400); RBC 4.24 Mil/uL (4.40-5.90); RED CELL DISTRIBUTION WIDTH 21.1 % (11.5-14.5); WHITE BLOOD COUNT 13.2 K/uL (4.8-10.8)
[2016-10-29 22:11] LABS: ALBUMIN 3.1 g/dL (3.5-5.0)
[2016-10-29 22:13] LABS: GFR AFRICAN-AMERICAN 39; GFR NON-AFRICAN AMERICAN 32
[2016-10-29 22:14] LABS: ALB/GLOB RATIO 0.9 (1.0-2.1); ALT/SGPT 33 U/L (21-72); AST/SGOT 30 U/L (17-59); BLOOD UREA NITROGEN 44 mg/dL (9-20); CALCIUM 8.7 mg/dl (8.6-10.4); LIPASE < 10 U/L (23-300)
[2016-10-29] MEDS ORDERED: Azithromycin 500mg/250ML NS 500 MG/250 ML BAG IVPB SCH (22:15)
[2016-10-29] MEDS ORDERED: Azithromycin 500mg/250ML NS 500 MG/250 ML BAG IVPB STA (22:15)
[2016-10-29 22:22] LABS: VENOUS BLOOD GAS BASE EXCESS -3.8 mmol/L (0.0-2.0); VENOUS BLOOD GAS PCO2 35 mmHg (40-60); VENOUS BLOOD GAS PO2 28 mm/Hg (30-55); VENOUS BLOOD PH 7.38 (7.32-7.43)
[2016-10-29 22:59] LABS: BANDS 3 % (0-2); LYMPHOCYTE 10 % (20-40); MONOCYTE 5 % (0-10); NEUTROPHIL 82 % (50-75); NUCLEATED RED BLOOD CELL 1 % (0-0); TOTAL CELLS COUNTED 100
[2016-10-29 23:00] LABS: MICROCYTOSIS SLIGHT; PLATELET ESTIMATE NORMAL (NORMAL); POLYCHROMIC SLIGHT
[2016-10-29 23:01] LABS: URINE BACTERIA MOD (<OCC); URINE BILIRUBIN NEGATIVE (NEGATIVE); URINE BLOOD 2+ (NEGATIVE); URINE CLARITY Turbid (Clear); URINE COLOR YELLOW (YELLOW); URINE GLUCOSE (UA) NORMAL (Normal); URINE LEUKOCYTE ESTERASE 3+ Leu/uL (Negative); URINE NITRATE NEGATIVE (NEGATIVE); URINE PROTEIN 2+ mg/dL (NEGATIVE); URINE UROBILINOGEN NORMAL mg/dL (0.2-1.0); WBC CLUMPS FEW /hpf
[2016-10-29 23:01] LABS: LARGE PLATELETS PRESENT
--- NOTE | 2016-10-29 23:08 | CT ---
EXAM: CT Head Without Intravenous Contrast CLINICAL HISTORY: 86 years old, male; Pain; Headache and other: Change mental status; Patient HX: 5-31-17 TECHNIQUE: Axial computed tomography images of the head/brain without intravenous contrast. This CT exam was performed using one or more of the following dose reduction techniques: automated exposure control, adjustment of the mA and/or kV according to patient size, and/or use of iterative reconstruction technique. COMPARISON: No relevant prior studies available. FINDINGS: Brain: Bilateral white matter changes. This is nonspecific and may include microangiopathic disease, small lacunae of indeterminate chronicity, chronic infarcts and/or encephalomalacia. Encephalomalacia in the left occipital lobe, correlate for prior infarct.. Atrophy. Vascular calcification. No hemorrhage. No edema. Ventricles: No hydrocephalus. Bones: Skull is intact. Deformity of the left lamina papyracea, correlate for prior fracture. Followup is warranted. Sinuses: No acute sinusitis. Mastoid air cells: No mastoid effusion. IMPRESSION: No CT evidence of acute intracranial abnormality. Please see details/findings as above. Correlate clinically. Followup as warranted. Acute infarcts/early ischemic changes may not be detectable by this modality; MRI is more sensitive in detecting acute ischemia.
[2016-10-29] MEDS ORDERED: Aztreonam 2 GM in Sodium Chloride 0.9% 100 ML IVPB STA (23:17)
[2016-10-29 23:25] VITALS: BP 125/62; RESP 25; TEMP 97.4
[2016-10-29] MEDS ORDERED: Azithromycin 500mg/250ML NS 500 MG/250 ML BAG IVPB ONE (23:28)
[2016-10-29] MEDS ORDERED: Azithromycin 500 MG in Sodium Chloride 0.9% 250 ML IVPB STA (23:33)
[2016-10-29 23:37] VITALS: O2SAT 100
[2016-10-29] MEDS ORDERED: MethylPREDNISolone 40 mg Vial IV SCH (23:45)
[2016-10-29] MEDS ORDERED: Azithromycin 500 MG in Sodium Chloride 0.9% 250 ML IVPB SCH (23:45)
[2016-10-29] MEDS ORDERED: Aztreonam 2 GM in Sodium Chloride 0.9% 100 ML IVPB SCH (23:45)
[2016-10-30 00:12] LABS: INR 3.4
[2016-10-30] MEDS ORDERED: MethylPREDNISolone 40 mg Vial ONE (00:14)
[2016-10-30 00:30] LABS: PROTHROMBIN TIME 40.3 SECONDS (9.7-12.2)
[2016-10-30] MEDS ORDERED: Calcium Gluconate 4.65 mEq/10 ml Inj ONE (00:33)
--- NOTE | 2016-10-30 01:13 | CP.PCM.CON ---
History of Present Illness - History of Present Illness History of Present Illness: PMD: Dr Pimentel Reason for Consult: Critical Care management Chief Complaint: AMS with Confusion Patient seen in [facility] ED, No family members present. HPI: The Hx is obtained from the Medical records. 86 years old residing at the [facility], has hx of COPD, CHF, Atrial Fibrillation and Dementia was brought to the Ed because of Change in mental status and confused, not eating nor drinking. There was no fever, chills , nausea nor vomits recorded. he apparently was complaining of abdominal pain. In the ED the patient Became bradycardic and went into PEA and cardio-pulmonary arrest. cardiopulmonary resuscitation continued for 10-15 minutes and pulse was regained. PMH: Atrial Fibrillation, CAD, CHF, COPD, Dementia, Depression, Deep Vein Thrombosis, HTN, Hypercholesterolemia, Pancreatitis PSH: right Above the knee amputation SH: former smoker; no llegal drug use; no alcohol; resides at the [facility] FH: Unknown family hx Allergies: moxifloxacin, penicillin; Vancomycin Review of systems is limited because of the patient' condition. Examination: Patient Intubated and on the mechanical ventilator AC 14, TV 400 and FiO2 of 100. The apparatus for chest compression was inactive on the chest The Heart rate was 36/min. Epinephrine 1mg was ordered IV Stat. Pulse was checked with hands and with the doppler and found to be absent. Cardio npulmonary resuscitation was again started with the chest compressions being given by the chest compression machine and epinephrine being given according to protocol. pulse was regained for a few econds and then lost to a persistent PEA. Chest compression and Epinephrine continued. Dopamine was started to maintain heart rate and blood pressure. No further pulses were obtained and the patient deteriorated from a braducardic PEA to Asystole. - pulses were absent, no [id number] respiration, pupils were fixed with no coronary reflex nor dolls eyes. The Patient was pronounced at 01:44 The family members were called myltiple times and the message was left on the answering machime to contact me or the Ed with the Given numbers. Number called 1. [phone] Cindy Zepeda at 207, 217, 257 and 344AM 2. [phone] Georgina zepeda at 208, 214, 256 and 347AM 3. Quinn Zepeda at [phone] Past Patient History - Infectious Disease Hx of Infectious Diseases: None - Past Medical History & Family History Past Medical History?: Yes - Past Social History Smoking Status: Former Smoker - CARDIAC Hx Atrial Fibrillation: Yes Hx Congestive Heart Failure: Yes Hx Hypercholesterolemia: Yes Hx Hypertension: Yes - PULMONARY Hx Chronic Obstructive Pulmonary Disease (COPD): Yes - NEUROLOGICAL Hx Dementia: Yes - HEENT Hx HEENT Problems: No - RENAL Hx Chronic Kidney Disease: No - ENDOCRINE/METABOLIC Hx Endocrine Disorders: Yes - HEMATOLOGICAL/ONCOLOGICAL Hx Human Immunodeficiency Virus (HIV): No - INTEGUMENTARY Hx Dermatological Problems: No - MUSCULOSKELETAL/RHEUMATOLOGICAL Hx Musculoskeletal Disorders: Yes Hx Falls: No Hx Unsteady Gait: Yes - GASTROINTESTINAL Hx Pancreatitis: Yes - GENITOURINARY/GYNECOLOGICAL Hx Genitourinary Disorders: No - PSYCHIATRIC Hx Depression: Yes Hx Substance Use: No - SURGICAL HISTORY Hx Surgeries: Yes Hx Amputation: Yes (RIGHT ABOVE THE KNEE) - ANESTHESIA Hx Anesthesia: Yes Hx Anesthesia Reactions: No Hx Malignant Hyperthermia: No Meds Allergies/Adverse Reactions: Allergies Allergy/AdvReac Type Severity Reaction Status Date / Time moxifloxacin HCl Allergy REDNESS Verified 09/16/16 20:39 [From Avelox] Penicillins Allergy RASH Verified 09/16/16 20:39 vancomycin AdvReac RASH Verified 09/16/16 20:39 - Medications Medications: Current Medications Acetaminophen (Tylenol 325mg Tab) 650 mg PO Q4H PRN PRN Reason: Pain, Mild (1-3) Apixaban (Eliquis) 2.5 mg PO BID ROSY Aspirin (Ecotrin) 81 mg PO DAILY ROSY Carvedilol (Coreg) 12.5 mg PO Q12 ROSY Diltiazem HCl (Cardizem) 30 mg PO Q8 ROSY Donepezil HCl (Aricept) 5 mg PO HS ROSY Ergocalciferol (Drisdol 50,000 Intl Units Cap) 1 cap PO QWK ROSY Furosemide (Lasix) 20 mg PO DAILY [facility] Sodium Chloride (Sodium Chloride 0.9%) 1,000 mls @ 100 mls/hr IV .Q10H [facility] Last Admin: 10/29/16 21:15 Dose: 100 mls/hr Aztreonam 2 gm/ Sodium (Chloride) 100 mls @ 200 mls/hr IVPB Q8H [facility] Azithromycin 500 mg/ Sodium (Chloride) 250 mls @ 250 mls/hr IVPB Q24H [facility] Last Admin: 10/30/16 00:02 Dose: Not Given Methylprednisolone (Solu-Medrol) 30 mg IV Q12 [facility]Y Last Admin: 10/30/16 00:16 Dose: 30 mg Rosuvastatin Calcium (Crestor) 10 mg PO HS ROSY Fluticasone/Salmeterol (Advair Diskus 250/50) 1 puff INH RQ12 [facility] Results - Vital Signs Recent Vital Signs: Last Vital Signs Temp 97.4 F L 10/29/16 23:24 Pulse 92 H 10/29/16 23:24 Resp 25 H 10/29/16 23:24 BP 125/62 10/29/16 23:24 Pulse Ox 100 10/29/16 23:45 - Labs Result Diagrams: 10/29/16 21:55 10/29/16 21:56 Assessment & Plan - Date & Time Date: 10/30/16 Time: 01:13
--- NOTE | 2016-10-30 01:58 | CP.PCM.PRO ---
Pronouncement of Note - Clinical Findings Physical Exam: No Response Verbal/Painful Stimuli, Absent Peripheral Pulses{ Carotid & Femoral}, Absent Heart & Breath Sounds, No Pupillary Light Reflex, No Corneal Reflex, Pupils Fixed & Dilated, Absence of Vital Signs - Pronouncement Time Time of Pronouncement of : 01:44 - Notifications Pronouncement Notifications: Family Notified, Atending Notified Rn Emergency Notified: Yes - Autopsy Autopsy Requested: No - [place] [id number] Additional Comments: The patient was coded twice in the ED
[2016-10-30 03:15] VITALS: PULSE 0
[2016-10-30] MEDS ORDERED: Lidocaine 2% w Epi 1:100,000 Inj IJ ONE (04:24)
[2016-10-30] MEDS ORDERED: Fluticasone-Salmeterol 250-50mcg Diskus INH SCH (08:00)
--- NOTE | 2016-10-30 09:54 | RAD ---
PROCEDURE: CHEST RADIOGRAPH, 1 VIEW HISTORY: Shortness of breath COMPARISON: 09/16/2016 FINDINGS: LUNGS: Multiple external battery packs and devices. Biapical pleural thickening with upper lobe granulomatous changes. Moderate venous congestion. Prominent patent patchy bibasilar airspace opacities with a suggestion of small bilateral pleural effusions. Right hilar prominence. PLEURA: As above. CARDIOVASCULAR: Cardiomegaly. OSSEOUS STRUCTURES: Degenerative changes in the spine and shoulders. VISUALIZED UPPER ABDOMEN: Normal. OTHER FINDINGS: None. IMPRESSION: Multiple external battery packs and devices. Biapical pleural thickening with upper lobe granulomatous changes. Moderate venous congestion. Prominent patent patchy bibasilar airspace opacities with a suggestion of small bilateral pleural effusions. Right hilar prominence.
--- NOTE | 2016-11-01 13:09 | CARD ---
APPROVED REPORT EKG Measurement Heart [id number] <Conclusion> Atrial flutter with variable AV block Rightward axis Nonspecific ST and T wave abnormality Abnormal ECG
[2016-11-05] MEDS ORDERED: Ergocalciferol 50,000 Intl Units Cap PO SCH (10:00)
== END 2016-10-30 01:44 | DRG 208 ==
LOC: C.ER 20:57 → C.6T 23:34 → C.9E 23:34
PROVIDERS: ADMIT Internal Medicine; ATTEND Internal Medicine
PROC: 0BH17EZ Insertion of Endotracheal Airway into Trachea, Via Natural or Artificial Opening (ICD-10-PCS; principal; 2016-10-29)
PROC: 5A1935Z Respiratory Ventilation, Less than 24 Consecutive Hours (ICD-10-PCS; 2016-10-29)
PROC: 5A12012 Performance of Cardiac Output, Single, Manual (ICD-10-PCS; 2016-10-29)
DX: J18.9 Pneumonia, unspecified organism (principal); J96.90 Respiratory failure, unspecified, unspecified whether with hypoxia or hypercapnia; I46.9 Cardiac arrest, cause unspecified; J44.0 Chronic obstructive pulmonary disease with (acute) lower respiratory infection; N39.0 Urinary tract infection, site not specified; I49.8 Other specified cardiac arrhythmias; I11.0 Hypertensive heart disease with heart failure; F03.90 Unspecified dementia, unspecified severity, without behavioral disturbance, psychotic disturbance, mood disturbance, and anxiety; I50.9 Heart failure, unspecified; N28.9 Disorder of kidney and ureter, unspecified; E78.00 Pure hypercholesterolemia, unspecified; I25.10 Atherosclerotic heart disease of native coronary artery without angina pectoris; I48.91 Unspecified atrial fibrillation; Z87.891 Personal history of nicotine dependence; Z89.611 Acquired absence of right leg above knee